=== PATIENT | female | born 1970 | race Caucasian/White ===

== ENCOUNTER 2019-10-25 10:58 | Emergency (ER) | payer OTHER, SELFPAY ==
[2019-10-25 10:59] VITALS: BP 141/73; PULSE 92; RESP 17; TEMP 36.7; O2SAT 98; BMI 34.7
--- NOTE | 2019-10-25 11:37 | RAD_ITS ---
STUDY: X-RAY CHEST REASON FOR EXAM: Female, 49 years old. TECHNIQUE: COMPARISON: None. FINDINGS: The lungs are clear and expanded. There is no demonstrated pleural abnormality. Normal size heart. Normal mediastinum and alexandra. Normal visualized pulmonary arteries. Normal visualized aortic arch and descending thoracic aorta. Normal visualized thoracic spine. Normal visualized ribs, clavicles, and shoulders. There is slight deviation of the left hemidiaphragm. There is no demonstrated abnormality of the visualized soft tissue structures of the upper abdomen. RAD/Chest PA and Lateral IMPRESSION: Normal x-ray examination of the chest. Electronically Signed: Román Johnson, at 11:52 EST Tel , Service support ,
[2019-10-25 11:52] VITALS: TEMP 36.7
--- NOTE | 2019-10-25 12:38 | ED.VISSUMM ---
- ER Visit Summary Date of Service: 10/25/19 Chief Complaint: Cough History of Present Illness: The patient is a 49 F past medical history of type I and some pen diabetes. Non-smoker. Patient states is a 4-day history of nonproductive cough. He has had some mild posttussive emesis. Fevers high as 101. Physical Examination: Well-appearing middle-aged female. Vital signs stable afebrile. Temperature 98. Pulse ox 98% room air no signs of hypoxia. No distress. HEENT exam unremarkable. Neck nontender no lymphadenopathy. No meningismus. Lungs dry cough but no rales rhonchi or wheezing. Equal symmetrical. Heart regular rhythm no murmur. Abdomen soft nontender. Extremities moves all 4. No edema. No calf tenderness. Back exam nontender. Neurologically she is awake and alert with no focal motor deficits. Test Results: Chest x-ray AP lateral view shows no acute abnormality. Normal cardiac silhouette mediastinum. No infiltrate. Read both by myself and the radiologist. Emergency Department Course and Treatment: Treated as a viral bronchitis. Treatment Plan: Cough syrup as needed. Fluids and rest. Follow-up if not improving. Return if worse. Disposition: dc Impression: Acute viral bronchitis This note was generated with [employer] dictation software. It may contain incorrect words, spelling, and punctuation that were not noted in review of the chart prior to signing ED Disposition - Plan for ED Patient: Referrals: Thomas Rhoades DO [Primary Care Provider] -
--- NOTE | 2019-10-25 12:40 | ED.DEP ---
ED Disposition - Plan for ED Patient: Disposition: Home or Assisted Living Instructions: BRONCHITIS, No Antibiotic (Adult) Prescriptions: Hydrocodone Bit/Homatropine [Hycodan Syrup] 5 ml GT Q4H PRN PRN #100 udc PRN Reason: Cough Prescription Printed Referrals: Thomas Rhoades DO [Primary Care Provider] - 1 Week if not improving Additional Instructions: Fluids and rest. Follow-up with your doctor if not improving.
[2019-10-25 12:53] VITALS: PULSE 86; RESP 18; TEMP 37; O2SAT 98
== END 2019-10-25 12:55 | disposition home or self-care (01) ==
PROVIDERS: Emergency Provider Emergency Medicine; Family Provider Family Medicine; PCP Family Medicine
DX: J20.8 Acute bronchitis due to other specified organisms (principal); E10.9 Type 1 diabetes mellitus without complications; Z79.4 Long term (current) use of insulin
CPT/HCPCS: 71046; 99282

== ENCOUNTER 2021-10-15 15:40 | Emergency (ER) | payer MEDICAID, SELFPAY ==
[2021-10-15 15:42] VITALS: BP 160/92; PULSE 100; RESP 16; TEMP 36.4; O2SAT 98; BMI 31.1
--- NOTE | 2021-10-15 15:45 | RAD_ITS ---
STUDY: X-RAY XR Forearm 2 Views REASON FOR EXAM: Female, 51 years old. PAIN TECHNIQUE: XR Forearm 2 Views COMPARISON: None. FINDINGS: There is no demonstrated soft tissue swelling. Normal visualized radius. Normal visualized ulna. RAD/Forearm 2 Views IMPRESSION: Normal x-ray examination of the radius and ulna. Electronically Signed: Vipin Morales MD at 16:49 EST , Service support ,
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
[2021-10-15 17:19] VITALS: BP 124/70; PULSE 62; RESP 15; O2SAT 98
== END 2021-10-15 17:26 | disposition home or self-care (01) ==
LOC: ED 17:25
PROVIDERS: Emergency Provider Emergency Medicine; PCP Family Medicine
DX: S50.12XA Contusion of left forearm, initial encounter (principal); V43.52XA Car driver injured in collision with other type car in traffic accident, initial encounter; Y93.9 Activity, unspecified; Y92.9 Unspecified place or not applicable; Y99.9 Unspecified external cause status; E10.8 Type 1 diabetes mellitus with unspecified complications; I10 Essential (primary) hypertension; E66.9 Obesity, unspecified; Z79.4 Long term (current) use of insulin; Z79.899 Other long term (current) drug therapy
CPT/HCPCS: 73090; 99284

== ENCOUNTER 2021-11-25 20:29 | Emergency (ER) | payer MEDICAID, SELFPAY ==
[2021-11-25 20:31] VITALS: BP 127/71; PULSE 92; RESP 16; TEMP 36.3; O2SAT 94; BMI 32.1
[2021-11-25 22:25] LABS: Bacteria 0 SEEN /hpf (None Seen); Mucous, Urine 0 SEEN /hpf (<or=2+); Red Blood Cells-Urine 0 SEEN /hpf (0-5); Squamous Epithelial Cells - UA 0 SEEN /hpf (5-10); White Blood Cells 0 SEEN /hpf (0-5)
[2021-11-25 22:27] LABS: Color, Urine Yellow (Yellow); Glucose, Dipstick 1000 mg/dl (Normal); Leukocyte Esterase-Dipstick Negative /ul (Negative); Nitrite-Dipstick Negative (Negative); Occult Blood-Urine Negative /ul (Negative); Protein-Dipstick Negative (Negative); Urine Bilirubin Dipstick Negative (Negative); Urine Clarity Clear (Clear); Urine Urobilinogen Normal (Normal)
--- NOTE | 2021-11-25 22:31 | CT_ITS ---
HISTORY: Bilateral flank pain 3 days TECHNIQUE: Multiple axial images were obtained of the abdomen and pelvis without oral or IV contrast. Coronal and sagittal reformats obtained. A radiation dose optimization technique was used for this scan. COMPARISON: October 25, 2019 chest radiograph FINDINGS: # of images incl. paperwork: [id number] LUNG BASES: Unremarkable. LIVER T BILIARY TRACT: Unremarkable gallbladder. No acute hepatic finding. ADRENAL GLANDS: Unremarkable. SPLEEN: Unremarkable. PANCREAS: Unremarkable. KIDNEYS/URETERS/BLADDER: No nephrolithiasis, hydronephrosis or perinephric inflammation. Unremarkable ureters and bladder. LYMPH NODES: No suspicious adenopathy. STOMACH, SMALL AND LARGE BOWEL: No acute gastric finding. No small bowel obstruction or gross wall thickening. Normal appendix. No acute colonic finding. ASCITES/FREE AIR: No free fluid or free air. AORTA: Atherosclerosis without ectasia. PELVIS: Unremarkable. MUSCULOSKELETAL: Left anterior abdominal wall focal skin thickening and subcutaneous edema, axial image 73 without evidence of organized fluid collection or abscess. No acute osseous finding. Tiny fat-containing umbilical hernia without inflammation. CT/Abdomen/Pelvis without Cont IMPRESSION: Left anterior abdominal wall focal skin thickening and subcutaneous inflammation. Correlate for clinical cellulitis. No evidence of subcutaneous abscess. No hydronephrosis or nephrolithiasis. No specific finding to explain flank pain. Individualized dose optimization techniques were used for this CT. at 0105 Reported and signed by: Andreas Lawrence MD Electronically Signed: Andreas Lawrence MD at 1:03 EST Tel , Service support ,
[2021-11-25 22:33] LABS: Ketone-Dipstick 150 mg/dl (Negative)
--- NOTE | 2021-11-25 22:53 | EDS_ITS ---
HPI History of Present Illness Chief Complaint: Back Informant: patient Narrative Narrative: Patient states she has had about 3 days of bilateral back pain. She denies any urinary symptoms whatsoever or change in urine color. No fevers or chills. She does have a flulike syndrome feeling. But she is not sick. She vomited once but it was after some coughing. But she is not coughing regularly and she is not short of breath. She denies any injury or trauma. At first she thought her back was just sore so she did use a massager on it. It is sore with motion but she is not sure if that is because of the massager. She has no abdominal pain. She is eating and drinking well. She has not had kidney stones. She does have diabetes and her sugars have been running in the mid 200s which is higher than her normal. Nothing specifically makes her symptoms better or worse consistently. PFSH PFSH Home Medications hydrochlorothiazide 25 mg PO DAILY PRN 12/25/13 [History Last Taken Unknown] insulin glargine [Lantus SoloStar Pen] 20 units SQ QHS 12/25/13 [History Last Taken Unknown] insulin glulisine U-100 [Apidra] unit SQ 12/25/13 [History Last Taken Unknown] diazepam 2 mg PO TID PRN PRN #10 tablet 08/17/16 [Rx Last Taken Unknown] meclizine 25 mg PO TID PRN PRN #20 tab 08/17/16 [Rx Last Taken Unknown] ondansetron 4 mg PO Q8H PRN PRN #10 tab 08/17/16 [Rx Last Taken Unknown] hydrocodone-homatropine 5 ml GT Q4H PRN PRN #100 udc 10/25/19 [Rx Last Taken Unknown] cyclobenzaprine 10 mg PO BID PRN #10 tab 11/26/21 [Rx Last Taken Unknown] hydrocodone-acetaminophen 1 tab PO Q6H PRN 3 Days #10 tab 11/26/21 [Rx Last Taken Unknown] Allergy/AdvReac Type Severity Reaction Status Date / Time lisinopril AdvReac Other Verified 11/25/21 20:31 morphine AdvReac Vomiting Verified 11/25/21 20:31 Penicillins [PCN] AdvReac Other Verified 11/25/21 20:31 Social History Smoking Status: Never smoker substance use type: does not use ROS ROS ED Constitutional Constitutional ED: Denies fever(s) or subjective Eyes Eyes: Denies blurry vision ENT ENT ED: Denies rhinorrhea or sore throat Cardiovascular Cardiovascular: Denies chest pain Respiratory/Chest Respiratory/Chest: Reports other Details: Coughed once or twice but generally not coughing. ; Denies dyspnea or sputum Gastrointestinal Gastrointestinal: Reports other Details: She vomited once a couple days ago but not since ; Denies abdominal pain, diarrhea, nausea or vomiting Genitourinary Genitourinary ED: Denies dysuria, hematuria or urinary frequency Musculoskeletal Musculoskeletal: Reports back pain; Denies arthralgias, myalgias or neck pain Integumentary Denies rash Neurologic Neurologic: Denies headache(s) Psychiatric Psychiatric: Denies depression Endocrine Endocrinology: Denies polydipsia or polyuria Hematologic/Lymphatic Hematologic/Lymphatic: Denies easy bleeding or easy bruising Allergic/Immunologic Allergic/Immunologic ED: Denies mouth swelling or urticaria EXAM Physical Exam Const Vital Signs: 11/25/21 20:31 Temperature 97.4 F L Temperature Source Temporal Pulse Rate 92 Respiratory Rate 16 Blood Pressure 127/71 H Blood Pressure Mean 89 Pulse Ox 94 Oxygen Delivery Method Room Air Positive well nourished and well developed General Appearance ED: well developed and NAD; Negative for pallor HEENT Negative for trauma Eyes PERRL and EOMs intact bilaterally General Eye ED: Negative for pale conjunctiva or scleral icterus Neck no JVD Resp normal respiratory effort and clear to auscultation bilaterally Cardio regular rate, regular rhythm and no murmurs GI normal to inspection, nondistended, normoactive bowel sounds, soft to palpation, non-tender and non-distended Back/Spine normal to inspection Back/Spine Narrative: Patient's paraspinal/CVA area is tender with just even light palpation. No rashes. No skin changes. No vesicles. No swelling. It slightly sore with motion 2. Extremity General Extremety ED: Negative for edema or tenderness General Extremity: Negative for edema Neuro Sensorium / Orientation: alert Psych mental status grossly normal Skin no rashes or lesions noted General Skin Exam: Negative for jaundice or pallor MDM MDM MDM Narrative Medical decision making narrative: CBC is normal. Electrolytes show elevated glucose at 461. Urine was negative other than ketones. She have some small acetone. However, there is no elevated anion gap or decreased bicarb. This is not consistent with DKA. I talked with the patient about her sugar. She did not take her insulin this evening. She states she will take her long-acting insulin, Basaglar, when she gets home. She states she would take 10 units of lispro now. She use her own insulin here for this. She is comfortable managing this. She has been diabetic for [address] scan shows no acute process. This may be musculoskeletal. We will get meds for pain as well as muscle relaxants. We discussed returning with fevers, numbness, tingling or other concerns. I will write for a few hydrocodone. Her online prescribing report showed 1 prescription for hydrocodone a year and a half ago. Lab Data Attestation: I reviewed the patient's lab results. Labs: Laboratory Results - last 24 hr 11/25/21 11/25/21 11/25/21 22:20 23:05 23:05 WBC 4.4 RBC 4.99 Hgb 14.5 Hct 42.1 MCV 84.4 MCH 29.1 MCHC 34.4 RDW Std Deviation 36.8 RDW Coeff of Jacquelin 12.1 Plt Count 212 MPV 10.5 Immature Gran % (Auto) 0.900 Neut % (Auto) 66.5 Lymph % (Auto) 18.8 L [place] % (Auto) 13.6 H Eos % (Auto) 0.0 Baso % (Auto) 0.2 Absolute Neuts (auto) 2.9 Absolute Lymphs (auto) 0.83 Nucleated RBC % 0 Sodium 131 L Potassium 4.3 Chloride 97 L Carbon Dioxide 22.0 Anion Gap 12 BUN 18 Creatinine 0.97 Estim Creat Clear Calc 54.27 Est GFR (MDRD) Af Amer 78 Est GFR (MDRD) Non-Af 64 BUN/Creatinine Ratio 18.6 Glucose 461 H* Calcium 8.6 Urine Color Yellow Urine Clarity Clear Urine pH 6.0 Ur Specific [place] 1.010 Urine Protein Negative Urine Glucose (UA) 1000 H Urine Ketones 150 A* Urine Occult Blood Negative Urine Nitrite Negative Urine Bilirubin Negative Urine Urobilinogen Normal Ur Leukocyte Esterase Negative Urine RBC 0 SEEN Urine WBC 0 SEEN Ur Squamous Epith Cells 0 SEEN Urine Bacteria 0 SEEN Urine Mucus 0 SEEN Acetone Level 11/25/21 23:05 WBC RBC Hgb Hct MCV MCH MCHC RDW Std Deviation RDW Coeff of Jacquelin Plt Count MPV Immature Gran % (Auto) Neut % (Auto) Lymph % (Auto) [place] % (Auto) Eos % (Auto) Baso % (Auto) Absolute Neuts (auto) Absolute Lymphs (auto) Nucleated RBC % Sodium Potassium Chloride Carbon Dioxide Anion Gap BUN Creatinine Estim Creat Clear Calc Est GFR (MDRD) Af Amer Est GFR (MDRD) Non-Af BUN/Creatinine Ratio Glucose Calcium Urine Color Urine Clarity Urine pH Ur Specific [place] Urine Protein Urine Glucose (UA) Urine Ketones Urine Occult Blood Urine Nitrite Urine Bilirubin Urine Urobilinogen Ur Leukocyte Esterase Urine RBC Urine WBC Ur Squamous Epith Cells Urine Bacteria Urine Mucus Acetone Level SMALL H Radiography Diagnostic Testing: Clinical Impression(s) from Imaging Studies Abdomen/Pelvis CT 11/25/21 22:31 IMPRESSION: Left anterior abdominal wall focal skin thickening and subcutaneous inflammation. Correlate for clinical cellulitis. No evidence of subcutaneous abscess. No hydronephrosis or nephrolithiasis. No specific finding to explain flank pain. Individualized dose optimization techniques were used for this CT. at 0105 Reported and signed by: Andreas Lawrence MD Electronically Signed: Andreas Lawrence MD at 1:03 EST Tel , Service support , Discharge Plan Triage Chief Complaint: Back ED Provider: Meño Allan Dx/Rx/DC Orders Clinical Impression: Back pain, Hyperglycemia Instructions: ED Back Pain (Acute or Chronic) Prescriptions: New cyclobenzaprine 10 mg tablet 10 mg PO BID PRN (Reason: muscle spasm) Qty: 10 RF: 0 hydrocodone-acetaminophen 5-325 mg tablet 1 tab PO Q6H PRN (Reason: pain) 3 Days Qty: 10 RF: 0 No Action hydrochlorothiazide 25 MG tablet 25 mg PO DAILY PRN (Reason: Swelling) RF: 0 insulin glulisine U-100 [Apidra U-100 Insulin] 100 UNIT/ML solution SQ RF: 0 insulin glargine [Lantus Solostar U-100 Insulin] 100 UNITS/ML insulin pen 20 units SQ QHS RF: 0 diazepam 2 MG tablet 2 mg PO TID PRN PRN (Reason: Vertigo) Qty: 10 RF: 0 meclizine 25 MG tablet 25 mg PO TID PRN PRN (Reason: Vertigo) Qty: 20 RF: 0 ondansetron 4 MG tablet 4 mg PO Q8H PRN PRN (Reason: Nausea) Qty: 10 RF: 0 hydrocodone-homatropine 5 ML syrup 5 ml GT Q4H PRN PRN (Reason: Cough) Qty: 100 RF: 0 Primary Care Provider: Thomas Rhoades Referrals: Thomas Rhoades DO [Primary Care Provider] - 3-5 Days if not improving Disposition Disposition: Home, Self Care
--- NOTE | 2021-11-25 23:09 | ED.RN ---
PT REFUSED IV. PT ARGUMENTATIVE ABOUT BLOOD DRAW. PT REFUSED COVID SWAB. PT ARGUMENTATIVE ABOUT GETTING INTO A GOWN.
[2021-11-25 23:22] LABS: Absolute Lymphocyte Count 0.83 X10^3/uL (0.83-4.51); Absolute Neutrophil Count 2.9 X10^3/uL (2.0-7.7); Basophil# 0.01 X10^3/uL; Basophil% 0.2 % (0-1); Hematocrit 42.1 % (37-47); Hemoglobin 14.5 g/dL (12.0-15.0); Lymphocyte # 0.83 X10^3/ul (0.83-4.51); Lymphocyte % 18.8 % (19-41); Mean Corp Hgb Conc 34.4 g/dL (32-36); Mean Corpuscular Hgb 29.1 pg (27.0-32.0); Mean Corpuscular Volume 84.4 fL (81-99); Mean Platelet Vol. 10.5 fl (6.2-12.0); Monocyte% 13.6 % (0-10); NRBC Flagged by Analyzer 0 % (0-5); Neutrophil # 2.93 X10^3/uL (2.7-7.7); Neutrophil % 66.5 % (47-70); Platelet Count 212 K/mm3 (150-450); RBC Distribution Width CV 12.1 % (11.6-14.6); RBC Distribution Width SD 36.8 fl (35.1-43.9); Red Blood Count 4.99 M/mm3 (4.2-5.4); White Blood Count 4.4 K/mm3 (4.4-11.0)
[2021-11-25 23:29] LABS: Anion Gap 12 (5-15); BUN 18 mg/dL (7-18); BUN/Creat Ratio 18.6 RATIO (10-20); Calcium,Total 8.6 mg/dL (8.5-10.1); Chloride 97 mmol/L (98-107); Creatinine, Serum 0.97 mg/dL (0.55-1.02); EST Glomerular Filtration Rate 64 mL/min (>60); Est Glom Filt Rate - Afr Amer 78 mL/min (>60); Estimated Creatinine Clearance 54.27 ml/min; Glucose 461 mg/dL (74-106); Potassium 4.3 mmol/L (3.5-5.1); Sodium Level 131 mmol/L (136-145)
[2021-11-26] MEDS: oxyCODONE 5 MG Tablet PO (00:27)
[2021-11-26] MEDS: Ondansetron ODT 4 MG Tablet PO (00:27)
== END 2021-11-26 01:36 | disposition home or self-care (01) ==
PROVIDERS: Emergency Provider Emergency Medicine; PCP Family Medicine
DX: M54.9 Dorsalgia, unspecified (principal); E11.65 Type 2 diabetes mellitus with hyperglycemia; Z79.4 Long term (current) use of insulin; Z79.899 Other long term (current) drug therapy
CPT/HCPCS: 74176; 80048; 81001; 82009; 85025; 99282

== ENCOUNTER 2021-11-29 19:09 | Inpatient (IN) | payer MEDICAID, SELFPAY ==
[2021-11-29 19:10] VITALS: BP 124/60; PULSE 108; RESP 24; TEMP 36.6; O2SAT 100; BMI 31.1
[2021-11-29 19:12] VITALS: BMI 30.9
--- NOTE | 2021-11-29 20:57 | EKG12_ITS ---
Test Reason : SOB Blood Pressure : / mmHG Vent. Rate : 098 BPM Atrial Rate : 098 BPM P-R Int : 178 ms QRS Dur : 098 ms QT Int : 382 ms P-R-T Axes : 067 050 036 degrees QTc Int : 487 ms Normal sinus rhythm Nonspecific ST abnormality Prolonged QT Abnormal ECG Confirmed by VIRY SAWANT, MEHUL ([id number]), proposal editor OSIRIS VELEZ ([id number]) on 11/30/2021 11:12:57 AM Referred By: ANURAG Confirmed By:MEHUL BAIRES MD
--- NOTE | 2021-11-29 21:15 | RAD_ITS ---
STUDY: X-RAY CHEST REASON FOR EXAM: Female, 51 years old. sob TECHNIQUE: Single AP portable view of the chest. COMPARISON: Chest x-ray dated October 25, 2019 FINDINGS: Mild patchy consolidation is present in bilateral upper lobes, with additional small infiltrates seen bilateral lower lobe perihilar regions. There is hyperinflation of the lungs consistent with chronic obstructive lung disease (COPD). There is no demonstrated pleural abnormality. Normal size heart. Normal mediastinum and alexandra. Normal visualized pulmonary arteries. Normal visualized aortic arch and descending thoracic aorta. Normal visualized thoracic spine. Normal visualized ribs, clavicles, and shoulders. There is no demonstrated abnormality of the visualized soft tissue structures of the upper abdomen. IMPRESSION: Mild multifocal pneumonia 1. Mild patchy consolidation is present in bilateral upper lobes, with additional small infiltrates seen bilateral lower lobe perihilar regions. Electronically Signed: Shaheen Flowers MD at 23:07 EST , Service support , RAD/Chest 1 View (Portable)
[2021-11-29 21:38] LABS: Hematocrit 46.7 % (37-47); Hemoglobin 15.2 g/dL (12.0-15.0); Mean Corp Hgb Conc 32.5 g/dL (32-36); Mean Corpuscular Hgb 28.8 pg (27.0-32.0); Mean Corpuscular Volume 88.4 fL (81-99); Mean Platelet Vol. 10.3 fl (6.2-12.0); POSITIVE DIFFERENTIAL YES; POSITIVE MORPHOLOGY YES; Platelet Count 309 K/mm3 (150-450); RBC Distribution Width CV 12.6 % (11.6-14.6); RBC Distribution Width SD 40.7 fl (35.1-43.9); Red Blood Count 5.28 M/mm3 (4.2-5.4)
[2021-11-29 22:02] VITALS: BP 133/84; PULSE 99; RESP 26; O2SAT 100
[2021-11-29 22:04] VITALS: O2SAT 100
[2021-11-29 22:07] LABS: Differential Indicated MANUAL DIFF
[2021-11-29 22:09] LABS: Lymphocyte 6 % (19-41); Monocyte 3 % (0-10); Neutrophil-Band 1 % (0-5); Neutrophil-Segmented 90 % (47-70); Red Cell Morphology NORM C+C NORMAL (NORM C&C); Total Cells Counted 100 (MANUAL DIFF)
[2021-11-29 22:10] LABS: Platelet Estimate ADEQUATE (ADEQ)
[2021-11-29 22:11] LABS: Absolute Lymphocyte Count 0.72 X10^3/uL (0.83-4.51)
[2021-11-29 22:32] LABS: Anion Gap 30 (5-15); BUN 33 mg/dL (7-18); BUN/Creat Ratio 18.3 RATIO (10-20); Calcium,Total 8.9 mg/dL (8.5-10.1); Chloride 91 mmol/L (98-107); EST Glomerular Filtration Rate 32 mL/min (>60); Est Glom Filt Rate - Afr Amer 38 mL/min (>60); Estimated Creatinine Clearance 29.24 ml/min; Glucose 868 mg/dL (74-106); Potassium 6.5 mmol/L (3.5-5.1); Sodium Level 123 mmol/L (136-145)
[2021-11-29 22:40] LABS: Bedside Glucose > 500 mg/dL (70-110)
[2021-11-29] MEDS: 0.9% Normal Saline 1,000 ML 999 ML IV ×2 (22:56→23:38)
--- NOTE | 2021-11-29 22:58 | EX.ED.DYSGE1 ---
HPI History of Present Illness Chief Complaint: Shortness of Breath Informant: patient and family Limited: other (AMS) Narrative Narrative: Patient is a 51 year old female with history of DM1 and recent diagnosis of COVID 19 infection presenting with mental status and fast breathing. Patient started acting confused this morning. Family was unable to find her glucometer. She is not been receiving her insulin because she is not been eating or drinking anything. She was throwing up a couple days ago. Patient was seen in the ER 4 days ago for back pain. That time she is put on muscle relaxant given a short course of [place]. She was not placed on any steroids. Family were states she had a Covid test here but we do not have the records of this test. Patient denies any complaints but is quite confused. [facility] Medical History (Updated 11/30/21 @ 00:[address] Jeniffer Gutierrez, DO) Type 1 diabetes Home Medications hydrochlorothiazide 25 mg PO DAILY PRN PRN 12/25/13 [History Last Taken Unknown] insulin glargine [Lantus SoloStar Pen] 20 units SQ QHS 12/25/13 [History Last Taken Unknown] insulin glulisine U-100 [Apidra] unit SQ 12/25/13 [History Last Taken Unknown] meclizine 25 mg PO TID PRN PRN #20 tab 08/17/16 [Rx Last Taken Unknown] ondansetron 4 mg PO Q8H PRN PRN #10 tab 08/17/16 [Rx Last Taken Unknown] cyclobenzaprine 10 mg PO BID PRN #10 tab 11/26/21 [Rx Last Taken Unknown] hydrocodone-acetaminophen 1 tab PO Q6H PRN 3 Days #10 tab 11/26/21 [Rx Last Taken Unknown] Allergy/AdvReac Type Severity Reaction Status Date / Time lisinopril AdvReac Other Verified 11/29/21 19:12 morphine AdvReac Vomiting Verified 11/29/21 19:12 Penicillins [PCN] AdvReac Other Verified 11/29/21 19:12 Family History (Updated 11/29/21 @ 23:[address] Nick Fairbanks MD) Other Multiple sclerosis Surgical History History of carpal tunnel surgery Hx of hand surgery Social History Smoking Status: Never smoker substance use type: does not use ROS ROS ED Review of Systems ROS Unobtainable: due to encephalopathy EXAM Physical Exam Const Vital Signs: 11/29/21 19:10 11/29/21 22:02 11/29/21 22:04 Temperature 98 F Temperature Source Temporal Pulse Rate 108 H 99 Respiratory Rate 24 H 26 H Respiratory Pattern Blood Pressure 124/60 H 133/84 H Blood Pressure Mean 81 100 Pulse Ox 100 100 100 Oxygen Delivery Method Room Air Room Air Room Air 11/29/21 22:07 Temperature Temperature Source Pulse Rate Respiratory Rate Respiratory Pattern Tachypnea Blood Pressure Blood Pressure Mean Pulse Ox Oxygen Delivery Method Positive well nourished and well developed General Appearance ED: well developed and other rolling around in bed, moderate distress HEENT Reports dry mucous membranes Negative for trauma Mouth ED: Yes dry mucous membranes Mouth: dry mucous membranes Eyes PERRL and EOMs intact bilaterally Neck supple and no JVD Chest Wall inspection of chest normal Resp clear to auscultation bilaterally Resp Narrative: [place] respirations Cardio regular rhythm and no murmurs Rate: tachycardic GI normal to inspection, nondistended, normoactive bowel sounds Extremity normal to inspection General Extremety ED: Negative for tenderness Neuro Neuro Narrative: No focal deficits noted Sensorium / Orientation: alert and orientation impaired Psych Mood & Affect: anxious Skin no rashes or lesions noted MDM MDM MDM Narrative Medical decision making narrative: Patient is evaluated for altered mental status. On evaluation she is encephalopathic. No focal neurologic deficits. She is hyperglycemic and scoop driver small breathing. I believe she is in DKA. Laboratory tests are consistent with that. She has an elevation of her creatinine as well at 1.8. She has an associated RUTH. Patient is given 2 L of normal saline in the ER. She started on insulin drip. She does have a hyperkalemia however she does not have EKG changes consistent with hyperkalemia. I suspect it is associated with her DKA and will normalize with fluids and resolution of her anion gap metabolic acidosis. Patient is admitted to the ICU for further treatment of her DKA. Patient and family member agreeable this plan of care. Suspect medication noncompliance as well as her recent COVID-19 illness or other causes of her DKA. Lab Data Attestation: I reviewed the patient's lab results. Labs: Laboratory Results - last 24 hr 11/29/21 11/29/21 11/29/21 21:25 21:25 22:10 WBC 12.0 H RBC 5.28 Hgb 15.2 H Hct 46.7 MCV 88.4 MCH 28.8 MCHC 32.5 D RDW Std Deviation 40.7 RDW Coeff of Jacquelin 12.6 Plt Count 309 MPV 10.3 Neut % (Auto) Not Reportable Absolute Neuts (auto) 11.0 H Absolute Lymphs (auto) 0.72 L Total Counted 100 Neutrophils % (Manual) 90 H Band Neutrophils % 1 Lymphocytes % (Manual) 6 L Monocytes % (Manual) 3 Platelet Estimate ADEQUATE RBC Morphology NORM C+C Sodium 123 L Potassium 6.5 H* Chloride 91 L Carbon Dioxide 2.0 L* Anion Gap 30 H BUN 33 H Creatinine 1.80 H Estim Creat Clear Calc 29.24 Est GFR (MDRD) Af Amer 38 L Est GFR (MDRD) Non-Af 32 L BUN/Creatinine Ratio 18.3 Glucose 868 H* Hemoglobin A1c Calcium 8.9 Phosphorus Acetone Level POC Glucose > 500 H* 11/29/21 11/29/21 11/29/21 22:50 22:50 22:50 WBC RBC Hgb Hct MCV MCH MCHC RDW Std Deviation RDW Coeff of Jacquelin Plt Count MPV Neut % (Auto) Absolute Neuts (auto) Absolute Lymphs (auto) Total Counted Neutrophils % (Manual) Band Neutrophils % Lymphocytes % (Manual) Monocytes % (Manual) Platelet Estimate RBC Morphology Sodium Potassium Chloride Carbon Dioxide Anion Gap BUN Creatinine Estim Creat Clear Calc Est GFR (MDRD) Af Amer Est GFR (MDRD) Non-Af BUN/Creatinine Ratio Glucose Hemoglobin A1c 10.9 H Calcium Phosphorus 5.0 H Acetone Level LARGE H POC Glucose Radiography Chest X-Ray - ED: 1 View, Read by ED Physician, Read by Radiologist, Right Infiltrate and Left Infiltrate Diagnostic Testing: Clinical Impression(s) from Imaging Studies Chest X-Ray 11/29/21 21:15 Rhythm Strip Rhythm Strip: Sinus Rhythm Rate: 98 Ectopy: None EKG Initial EKG: Attestation: I personally reviewed and interpreted this EKG as follows: Interpretation: Sinus Rhythm Comments: Normal sinus rhythm at a rate of 98 Normal axis QRS is [address] segments Poor baseline due to motion artifact Critical Care Time Critical Care Time: Yes Critical care time (excluding procedures): 30-74 minutes (39), Including time spent: (Patient presents with DKA with severe metabolic acidosis. Requires close monitoring and arranging admission to the ICU. Patient is on insulin drip.), Discussing w/Patient &/or Family/Local Area Network Systems Adminstrator and Arranging Admission or Transfer Discharge Plan Triage Chief Complaint: Shortness of Breath ED Provider: Jeniffer Gutierrez Dx/Rx/DC Orders Clinical Impression: DKA, type 1, COVID-19 virus infection, Acute hyperkalemia, RUTH (acute kidney injury) Primary Care Provider: Thomas Rhoades Disposition Disposition: Acute Care Hospital [facility]
--- NOTE | 2021-11-29 23:24 | HP.PCM.HOS_ITS ---
HPI - General General Date of Admission: 11/29/21 HPI Narrative JANICE ROLLINS, is a 51 F with a significant history of diabetes mellitus who presents to the emergency department because of progressively worsening confusion. Her started on the same day of presentation. Three-day before presentation patient presented to the hospital with back pain and she was discharged home on muscle relaxants and [place]. Her thought that it was this new medication causing her symptoms. However after some time because her symptoms were not going away patient was brought to the hospital. Of note patient has had a Covid-like symptoms and was tested for Covid a few days ago. Her Covid test came back positive. With a Covid test patient was anorexic and was not eating so she was not taking her insulin. Further, patient has had nausea, vomiting. Patient has not had any diarrhea. She has had myalgia. Also, she has had shortness of breath and wheezes. [facility] Medical History Type 1 diabetes Home Medications hydrochlorothiazide 25 mg PO DAILY PRN PRN 12/25/13 [History Last Taken Unknown] insulin glargine [Lantus SoloStar Pen] 20 units SQ QHS 12/25/13 [History Last Taken Unknown] insulin glulisine U-100 [Apidra] unit SQ 12/25/13 [History Last Taken Unknown] meclizine 25 mg PO TID PRN PRN #20 tab 08/17/16 [Rx Last Taken Unknown] ondansetron 4 mg PO Q8H PRN PRN #10 tab 08/17/16 [Rx Last Taken Unknown] cyclobenzaprine 10 mg PO BID PRN #10 tab 11/26/21 [Rx Last Taken Unknown] hydrocodone-acetaminophen 1 tab PO Q6H PRN 3 Days #10 tab 11/26/21 [Rx Last Taken Unknown] Allergy/AdvReac Type Severity Reaction Status Date / Time lisinopril AdvReac Other Verified 11/29/21 19:12 morphine AdvReac Vomiting Verified 11/29/21 19:12 Penicillins [PCN] AdvReac Other Verified 11/29/21 19:12 Family History Other Multiple sclerosis Surgical History History of carpal tunnel surgery Hx of hand surgery Social History Smoking Status: Never smoker substance use type: does not use ROS ROS Narrative Pertinent positives and pertinent negatives as noted in HPI. All other systems were reviewed and are negative. Vital Signs Vital Signs Vital Signs: 11/29/21 19:10 11/29/21 22:02 11/29/21 22:04 Temperature 98 F Temperature Source Temporal Pulse Rate 108 H 99 Respiratory Rate 24 H 26 H Respiratory Pattern Blood Pressure 124/60 H 133/84 H Blood Pressure Mean 81 100 Pulse Ox 100 100 100 Oxygen Delivery Method Room Air Room Air Room Air 11/29/21 22:07 Temperature Temperature Source Pulse Rate Respiratory Rate Respiratory Pattern Tachypnea Blood Pressure Blood Pressure Mean Pulse Ox Oxygen Delivery Method Weight Weight: 77.111 kg Body Mass Index (BMI) 31.1 Physical Exam Narrative Physical exam: General: Well-nourished, well-developed. Head: Normocephalic, atraumatic, no tenderness Eyes: PERRLA, EOMI ENT, no trauma, dry mucous membranes, no rhinorrhea Neck: Nontender, full range of motion, no spinal tenderness, deformities, step- off CVS: Regular rate and rhythm. S1-S2 present. No murmur, gallop or rub. Respiratory : Hyperventilating. Clear to auscultation bilaterally, chest wall nontender. Abdomen: Soft, nontender, nondistended, normal bowel sounds, no masses : Deferred Back: Nontender, no CVA tenderness, no midline spinal tenderness, deformities, step-offs Extremities: Nontender full range of motion, no trauma Skin: Normal color, no trauma, abrasions Neuro: Hypo-alert and confused. Psychiatry: Normal mood. Normal affect. Not depressed. Not anxious. Results Lab / Micro Data Result Diagrams: 11/29/21 21:25 11/30/21 01:40 Labs: Laboratory Results - last 24 hr 11/29/21 21:25: WBC 12.0 H, RBC 5.28, Hgb 15.2 H, Hct 46.7, MCV 88.4, MCH 28.8, MCHC 32.5 D, RDW Std Deviation 40.7, RDW Coeff of Jacquelin 12.6, Plt Count 309, MPV 10.3, Neut % (Auto) Not Reportable, Absolute Neuts (auto) 11.0 H, Absolute Lymphs (auto) 0.72 L, Total Counted 100, Neutrophils % (Manual) 90 H, Band Neutrophils % 1, Lymphocytes % (Manual) 6 L, Monocytes % (Manual) 3, Platelet Estimate ADEQUATE, RBC Morphology NORM C+C 11/29/21 21:25: Sodium 123 L, Potassium 6.5 H*, Chloride 91 L, Carbon Dioxide 2.0 L*, Anion Gap 30 H, BUN 33 H, Creatinine 1.80 H, Estim Creat Clear Calc 29.24, Est GFR (MDRD) Af Amer 38 L, Est GFR (MDRD) Non-Af 32 L, BUN/Creatinine Ratio 18.3, Glucose 868 H*, Calcium 8.9 11/29/21 22:10: POC Glucose > 500 H* Rhythm Strip Rhythm Strip: Sinus Rhythm Rate: 98 Ectopy: None Radiology Impression Chest X-Ray 11/29/21 21:15 Assessment & Plan Assessment/Plan (1) Type 1 diabetes: QUALIFIERS: Diabetes mellitus complication status: without complication Qualified Code(s): E10.9 - Type 1 diabetes mellitus without complications (2) DKA, type 1: QUALIFIERS: Diabetes mellitus complication detail: without coma Qualified Code(s): E10.10 - Type 1 diabetes mellitus with ketoacidosis without coma (3) COVID-19 virus infection: PLAN: DKA with encephalopathy Her DKA could be secondary to insufficient insulin to meet his metabolic demands Serum glucose: 868 acetone level: Large. Anion gap of 30 Sodium 123, . Corrected sodium: 135 Insulin drip started from emergency department; continue Completed IV bolus of normal saline and normal saline infusion. Initial potassium 6.5. Repeat BMP showed potassium of 4.6. Normal saline with 20 of potassium ordered. Then start patient on half-normal saline with 20 of potassium. Initial ABG showed pH of less than 7 and bicarbonate was at 2. Bicarbonate IV push ordered. BMP every 4 hours to calculate anion gap. N.p.o. for now A1c ordered emergency department was 10.9. Phosphorus was 5.0. Patient was very agitated while admitted to the intensive care unit. Precedex drip ordered. Admitted to ICU Leukocytosis Review of labs showed white count of 12.0. Likely reactive. Trend BMP. RUTH/dehydration Creatinine of 1.80. BUN of 33. BUN over creatinine of 18.3. Likely intrinsic renal at this time. IV hydration as above. Avoid nephrotoxins. Trend BMP. COVID-19 infection Not hypoxic. We will avoid all p.o. meds secondary to encephalopathy. DVT prophylaxis: Subcutaneous Lovenox ordered. Charges/Coding Visit Charges Inpatient E&M: 44275 Init Hosp L3
[2021-11-29 23:31] LABS: Hemoglobin A1c 10.9 % (3.8-5.6)
[2021-11-30] VITALS (30 sets, daily range): BP systolic 70–150; BP diastolic 56–92; PULSE 70–106; RESP 15–27; TEMP 36.3–36.7; O2SAT 94–100
[2021-11-30 00:37] LABS: Mucous, Urine 0 SEEN /hpf (<or=2+); Red Blood Cells-Urine 0 SEEN /hpf (0-5); Squamous Epithelial Cells - UA 0 SEEN /hpf (5-10); White Blood Cells 0 SEEN /hpf (0-5)
[2021-11-30 00:38] LABS: Color, Urine Yellow (Yellow); Glucose, Dipstick 1000 mg/dl (Normal); Leukocyte Esterase-Dipstick Negative /ul (Negative); Nitrite-Dipstick Negative (Negative); Occult Blood-Urine 50 /ul (Negative); Protein-Dipstick 30 mg/dl (Negative); Specific Gravity, Urine 1.015 (1.002-1.030); Urine Bilirubin Dipstick Negative (Negative); Urine Clarity Clear (Clear); Urine Urobilinogen Normal (Normal)
[2021-11-30 00:50] LABS: Ketone-Dipstick 150 mg/dl (Negative)
[2021-11-30 00:52] LABS: Amorphous Sediment 1+; Bacteria 1+ /hpf (None Seen)
[2021-11-30 01:16] LABS: Blood Gas Specimen Type VEN; VBG BASE EXCESS < -30 mmol/L (-1.0-3.5); VBG PO2 55 mmHg (25-40); VBG SO2 56 % (50-70); VBG TCO2 < 5 mmol/L (23-33); VBG pH 6.78 (7.32-7.42)
[2021-11-30 02:38] LABS: Anion Gap 29 (5-15); BUN 34 mg/dL (7-18); BUN/Creat Ratio 21.8 RATIO (10-20); Calcium,Total 8.1 mg/dL (8.5-10.1); Chloride 101 mmol/L (98-107); Creatinine, Serum 1.56 mg/dL (0.55-1.02); EST Glomerular Filtration Rate 37 mL/min (>60); Est Glom Filt Rate - Afr Amer 45 mL/min (>60); Estimated Creatinine Clearance 33.74 ml/min; Glucose 738 mg/dL (74-106); Potassium 4.6 mmol/L (3.5-5.1); Sodium Level 131 mmol/L (136-145)
[2021-11-30] MEDS: 0.9% Normal Saline 1,000 ML 250 ML IV (02:45)
[2021-11-30] MEDS: Sodium Bicarbonate 8.4% 50 ML Syringe 50 MEQ IV ×3 (03:02→05:20)
[2021-11-30] MEDS: KCL 20MEQ in 0.9% NS 20 MEQ/1,000 ML IV.SOLN. 250 MEQ IV (03:50)
[2021-11-30 04:16] LABS: Hematocrit 45.1 % (37-47); Hemoglobin 14.9 g/dL (12.0-15.0); Mean Corpuscular Hgb 28.7 pg (27.0-32.0); Mean Corpuscular Volume 86.7 fL (81-99); Mean Platelet Vol. 10.4 fl (6.2-12.0); POSITIVE DIFFERENTIAL YES; POSITIVE MORPHOLOGY YES; Platelet Count 224 K/mm3 (150-450); RBC Distribution Width CV 12.4 % (11.6-14.6); RBC Distribution Width SD 39.4 fl (35.1-43.9)
[2021-11-30 04:19] LABS: Differential Indicated MANUAL DIFF
[2021-11-30 04:48] LABS: Anion Gap 27 (5-15); BUN 34 mg/dL (7-18); BUN/Creat Ratio 22.5 RATIO (10-20); Calcium,Total 8.2 mg/dL (8.5-10.1); Chloride 102 mmol/L (98-107); Creatinine, Serum 1.51 mg/dL (0.55-1.02); EST Glomerular Filtration Rate 39 mL/min (>60); Est Glom Filt Rate - Afr Amer 47 mL/min (>60); Estimated Creatinine Clearance 34.86 ml/min; Glucose 577 mg/dL (74-106); Potassium 3.9 mmol/L (3.5-5.1); Sodium Level 134 mmol/L (136-145)
[2021-11-30 04:58] LABS: Total Cells Counted 100 (MANUAL DIFF)
[2021-11-30 05:01] LABS: Lymphocyte 6 % (19-41); Metamyelocyte 1 % (0-1); Monocyte 5 % (0-10); Myelocyte 1 % (0-0); Neutrophil-Band 4 % (0-5); Neutrophil-Segmented 82 % (47-70); Promyelocyte 1 % (0-0)
[2021-11-30 05:02] LABS: Platelet Estimate ADEQUATE (ADEQ); Red Cell Morphology NORM C+C NORMAL (NORM C&C)
[2021-11-30 05:03] LABS: Absolute Lymphocyte Count 0.78 X10^3/uL (0.83-4.51); Absolute Neutrophil Count 11.2 X10^3/uL (2.0-7.7); Lymphocyte # 0.78 X10^3/ul (0.83-4.51); Neutrophil # 11.18 X10^3/uL (2.7-7.7)
[2021-11-30] MEDS: 0.9% Normal Saline 1,000 ML 150 ML IV (08:10)
[2021-11-30 08:41] LABS: VBG Bicarbonate 2 mmol/L (22-26)
--- NOTE | 2021-11-30 09:16 | PN.HOSP_ITS ---
Subjective Subjective The patient was admitted with confusion started on the day of admission. She was a started on muscle relaxant and [place] when she had back pain 3 days prior to admission. Currently on half-normal saline with 20 mEq of KCl.. On insulin drip Objective Data Objective Data Vital Signs: Vital Signs Temp Pulse Resp BP Pulse Ox 97.4 F L 90 20 H 115/74 100 11/30/21 00:51 11/30/21 07:00 11/30/21 07:00 11/30/21 07:00 11/30/21 07:00 Oxygen Delivery Method Room Air Weight: 169 lb 5.04 oz Body Mass Index (BMI) 30.9 Intake & Output: Intake and Output for Last 24 Hours 11/28/21 11/29/21 11/30/21 23:59 23:59 23:59 Intake Total 682.65 / 682.65 1388.48 / 1388.48 Output Total 400 / 400 Balance 682.65 / 682.65 988.48 / 988.48 Lab / Micro Data Result Diagrams: 11/30/21 03:40 11/30/21 09:13 Labs: Laboratory Results - last 24 hr 11/29/21 21:25: WBC 12.0 H, RBC 5.28, Hgb 15.2 H, Hct 46.7, MCV 88.4, MCH 28.8, MCHC 32.5 D, RDW Std Deviation 40.7, RDW Coeff of Jacquelin 12.6, Plt Count 309, MPV 10.3, Neut % (Auto) Not Reportable, Absolute Neuts (auto) 11.0 H, Absolute Lymphs (auto) 0.72 L, Total Counted 100, Neutrophils % (Manual) 90 H, Band Neutrophils % 1, Lymphocytes % (Manual) 6 L, Monocytes % (Manual) 3, Platelet Estimate ADEQUATE, RBC Morphology NORM C+C 11/29/21 21:25: Sodium 123 L, Potassium 6.5 H*, Chloride 91 L, Carbon Dioxide 2.0 L*, Anion Gap 30 H, BUN 33 H, Creatinine 1.80 H, Estim Creat Clear Calc 29.24, Est GFR (MDRD) Af Amer 38 L, Est GFR (MDRD) Non-Af 32 L, BUN/Creatinine Ratio 18.3, Glucose 868 H*, Calcium 8.9 11/29/21 22:10: POC Glucose > 500 H* 11/29/21 22:50: Phosphorus 5.0 H 11/29/21 22:50: Acetone Level LARGE H 11/29/21 22:50: Hemoglobin A1c 10.9 H 11/30/21 00:30: Urine Color Yellow, Urine Clarity Clear, Urine pH 5.0, Ur Specific [place] 1.015, Urine Protein 30 H, Urine Glucose (UA) 1000 H, Urine Ketones 150 A*, Urine Occult Blood 50 H, Urine Nitrite Negative, Urine Bilirubin Negative, Urine Urobilinogen Normal, Ur Leukocyte Esterase Negative, Urine RBC 0 SEEN, Urine WBC 0 SEEN, Ur Squamous Epith Cells 0 SEEN, Amorphous Sediment 1+, Urine Bacteria 1+, Urine Mucus 0 SEEN 11/30/21 01:40: Sodium 131 L, Potassium 4.6, Chloride 101, Carbon Dioxide 1.0 L* , Anion Gap 29 H, BUN 34 H, Creatinine 1.56 H, Estim Creat Clear Calc 33.74, Est GFR (MDRD) Af Amer 45 L, Est GFR (MDRD) Non-Af 37 L, BUN/Creatinine Ratio 21.8 H , Glucose 738 H*, Calcium 8.1 L 11/30/21 03:40: Sodium 134 L, Potassium 3.9, Chloride 102, Carbon Dioxide 5.0 L* , Anion Gap 27 H, BUN 34 H, Creatinine 1.51 H, Estim Creat Clear Calc 34.86, Est GFR (MDRD) Af Amer 47 L, Est GFR (MDRD) Non-Af 39 L, BUN/Creatinine Ratio 22.5 H , Glucose 577 H*, Calcium 8.2 L 11/30/21 03:40: WBC 13.0 H, RBC 5.20, Hgb 14.9, Hct 45.1, MCV 86.7, MCH 28.7, MCHC 33.0, RDW Std Deviation 39.4, RDW Coeff of Jacquelin 12.4, Plt Count 224, MPV 10.4, Neut % (Auto) Not Reportable, Absolute Neuts (auto) 11.2 H, Absolute Lymphs (auto) 0.78 L, Total Counted 100, Neutrophils % (Manual) 82 H, Band Neutrophils % 4, Lymphocytes % (Manual) 6 L, Monocytes % (Manual) 5, Metamyelocytes % 1, Myelocytes % 1 H, Promyelocytes % 1 H, Diff Path Review May foll, Platelet Estimate ADEQUATE, RBC Morphology NORM C+C Micro: Microbiology 11/29/21 22:50 Interface Orders SARS-CoV-2 Antigen (Rapid) - Final SARS-CoV-2 (COVID 19) ABG Data ABG results: ABG 11/29/21 23:01 Specimen Type JANNA VBG pH 6.78 L* VBG pO2 55 H VBG Total CO2 < 5 L VBG O2 Sat (Calc) 56 VBG Base Excess < -30 L POC Mix VBG pCO2 Pt Tmp 14.0 L* Crit Call To/Read Back Yes Blood Gas Notified Whom Dr Gutierrez Blood Gas Notified Time 23:04:04 Radiography Diagnostic Testing: Radiology Impression Chest X-Ray 11/29/21 21:15 Rhythm Strip Rhythm Strip: Sinus Rhythm Rate: 98 Ectopy: None Physical Exam Narrative General: Confused, knows her date of , year and month, day and night but disoriented to place and person HEENT: Atraumatic, PERRLA, EOMI, Normocephalic Oral: Oral mucosa moist. No Gingival or Mucosal Lesions/ Ulcerations Neck: Supple, No JVD, Negative Carotid Bruits Lungs: Air entry diminished in bilateral lung bases. No crepitation/rhonchi Cardiovascular: Regular rate, Regular Rhythm, Normal S1, Normal S2, No murmurs Abdomen: Bowel Sounds Present, Soft, Non Tender, Non-Distended : Urine output clear urine no renal angle tenderness. No suprapubic tenderness. Extremities: No edema, Capillary Refill Less than 3 Seconds Skin: No rashes, No breakdown Musculoskeletal: No Tenderness to Palpation of Joints or Extremities Neurological: Cranial nerves II-XII grossly intact, DTR 2+/4 and Symmetrical, Neuro grossly intact Psych/Mental Status: Flat affect, slow to respond Assessment & Plan Assessment/Plan (1) Type 1 diabetes: QUALIFIERS: Diabetes mellitus complication status: without complication Qualified Code(s): E10.9 - Type 1 diabetes mellitus without complications (2) DKA, type 1: QUALIFIERS: Diabetes mellitus complication detail: without coma Qualified Code(s): E10.10 - Type 1 diabetes mellitus with ketoacidosis without coma (3) COVID-19 virus infection: PLAN: 1. DKA with encephalopathy with high anion gap metabolic acidosis: Patient is admitted in ICU. Most recent labs shows anion gap 27, bicarb 5, sodium 134. Glucose 577. Phosphorus 4.0. Lab is getting draw. Serum acetone large. Currently on half-normal saline with 20 M EQ of potassium chloride.ABG showed pH of less than 7 and bicarbonate was at 2. Patient required bicarbonate IV push. A1c 10.9. BMP every 4 hours to calculate anion gap. Monitor intake and output. 2. Leukocytosis Review of labs showed white count of 12.0. Likely reactive. Monitor CBC 3. RUTH/dehydration: BUN/creatinine 34/1.5 improving since admission. BUN/creatinine ratio 18.3. Admitted with creatinine 1.0. Baseline creatinine normal 0.97 Avoid nephrotoxic medications 4. COVID-19 infection Not hypoxic. 5. Acute encephalopathy probably metabolic due to DKA:Avoid all p.o. meds secondary to encephalopathy. Does not meet criteria for dexamethasone for COVID-19 infection and patient is also confused and disoriented which steroid might worsen further. DVT prophylaxis: Subcutaneous Lovenox ordered. Charges/Coding Visit Charges Inpatient E&M: 37690 Subs Hosp L3
[2021-11-30 09:35] LABS: Bedside Glucose > 500 mg/dL (70-110)
[2021-11-30 09:35] LABS: Bedside Glucose > 500 mg/dL (70-110)
[2021-11-30 09:35] LABS: Bedside Glucose > 500 mg/dL (70-110)
[2021-11-30 09:35] LABS: Bedside Glucose 428 mg/dL (70-110)
[2021-11-30 09:35] LABS: Bedside Glucose 480 mg/dL (70-110)
[2021-11-30 09:35] LABS: Bedside Glucose > 500 mg/dL (70-110)
[2021-11-30 09:35] LABS: Bedside Glucose 450 mg/dL (70-110)
[2021-11-30 09:35] LABS: Bedside Glucose > 500 mg/dL (70-110)
[2021-11-30 09:41] LABS: Anion Gap 24 (5-15); BUN 32 mg/dL (7-18); BUN/Creat Ratio 22.5 RATIO (10-20); Calcium,Total 8.5 mg/dL (8.5-10.1); Chloride 107 mmol/L (98-107); Creatinine, Serum 1.42 mg/dL (0.55-1.02); EST Glomerular Filtration Rate 41 mL/min (>60); Est Glom Filt Rate - Afr Amer 50 mL/min (>60); Estimated Creatinine Clearance 37.07 ml/min; Glucose 420 mg/dL (74-106); Potassium 4.2 mmol/L (3.5-5.1); Sodium Level 136 mmol/L (136-145)
[2021-11-30] MEDS: Enoxaparin 30 MG/0.3 ML Syringe SC (11:44)
[2021-11-30 12:15] LABS: Bedside Glucose 330 mg/dL (70-110)
[2021-11-30 13:01] LABS: Bedside Glucose 350 mg/dL (70-110)
[2021-11-30 14:00] LABS: Bedside Glucose 419 mg/dL (70-110)
[2021-11-30 14:00] LABS: Bedside Glucose 378 mg/dL (70-110)
--- NOTE | 2021-11-30 14:05 | CASEMGMT ---
RN CM attempted to call to complete assessment as patient is drowsy and only alert to self. RN CM called , no answer, voice message left with return contact information.
--- NOTE | 2021-11-30 14:14 | CASEMGMT ---
RN CM called for initial transition planning/care coordination assessment as patient is drowsy and only alert to self. RN CM introduced self and role at [facility]. , Vel, willing to participate in assessment and is able to answer all questions appropriately. Care providers, pharmacy, and demographics verified. wishes for patient to discharge home, denies need for home health at this time. states he has no further needs or concerns at this time. CM to follow for discharge planning needs that may arise. PCP: Thomas Rhoades Specialists: none Preferred Pharmacy: [facility] Insurance: [employer] Prescription Benefit: yes Living Will/HPOA: none LNOK: Living Arrangements: Patient lives with in a single story home with 2 steps to enter. Patient is normally independent at home. Transportation: self/ DME/HHC: Patient has glucometer and testing supplies as well as insulin and needles. No previous HHC or SNF. Per patient had covid testing completed at [facility]. Disposition Plan: Patient to discharge home with family support and follow-up plans in place. Chetna ROGERN, RN, CM
[2021-11-30 14:26] LABS: Pathologist Review Reviewed
--- NOTE | 2021-11-30 14:39 | PCS.PANDOC ---
PANDEMIC DOCUMENTATION INITIATED: Date: 07/12/2021 Time: 190
[2021-11-30 15:03] LABS: Magnesium 2.4 mg/dL (1.6-2.6)
[2021-11-30 15:05] LABS: Anion Gap 19 (5-15); BUN 32 mg/dL (7-18); BUN/Creat Ratio 24.1 RATIO (10-20); Calcium,Total 8.4 mg/dL (8.5-10.1); Chloride 110 mmol/L (98-107); Creatinine, Serum 1.33 mg/dL (0.55-1.02); EST Glomerular Filtration Rate 45 mL/min (>60); Est Glom Filt Rate - Afr Amer 54 mL/min (>60); Estimated Creatinine Clearance 39.58 ml/min; Glucose 317 mg/dL (74-106); Potassium 4.3 mmol/L (3.5-5.1); Sodium Level 138 mmol/L (136-145)
[2021-11-30 15:21] LABS: Bedside Glucose 278 mg/dL (70-110)
[2021-11-30 15:21] LABS: Bedside Glucose 286 mg/dL (70-110)
[2021-11-30] MEDS: 0.9% Normal Saline 1,000 ML 999 ML IV (15:37)
[2021-11-30 16:21] LABS: Bedside Glucose 250 mg/dL (70-110)
[2021-11-30 16:31] LABS: Bedside Glucose 201 mg/dL (70-110)
[2021-11-30] MEDS: Dext 5%-0.45% NS 1,000 ML 150 ML IV ×2 (17:00→23:41)
[2021-11-30 17:08] LABS: Anion Gap 14 (5-15); BUN 32 mg/dL (7-18); BUN/Creat Ratio 25.2 RATIO (10-20); Calcium,Total 7.9 mg/dL (8.5-10.1); Chloride 112 mmol/L (98-107); Creatinine, Serum 1.27 mg/dL (0.55-1.02); EST Glomerular Filtration Rate 47 mL/min (>60); Est Glom Filt Rate - Afr Amer 57 mL/min (>60); Estimated Creatinine Clearance 41.45 ml/min; Glucose 248 mg/dL (74-106); Sodium Level 140 mmol/L (136-145)
[2021-11-30] MEDS: Lactated Ringers 1,000 ML 999 ML IV (17:50)
[2021-11-30 18:16] LABS: Bedside Glucose 208 mg/dL (70-110)
[2021-11-30 18:16] LABS: Bedside Glucose 208 mg/dL (70-110)
[2021-11-30 18:50] LABS: Bedside Glucose 219 mg/dL (70-110)
[2021-11-30 20:31] LABS: Anion Gap 10 (5-15); BUN 31 mg/dL (7-18); BUN/Creat Ratio 23.3 RATIO (10-20); Calcium,Total 7.9 mg/dL (8.5-10.1); Chloride 113 mmol/L (98-107); Creatinine, Serum 1.33 mg/dL (0.55-1.02); EST Glomerular Filtration Rate 45 mL/min (>60); Est Glom Filt Rate - Afr Amer 54 mL/min (>60); Estimated Creatinine Clearance 39.58 ml/min; Glucose 213 mg/dL (74-106); Potassium 3.8 mmol/L (3.5-5.1); Sodium Level 141 mmol/L (136-145)
[2021-11-30 22:11] LABS: Bedside Glucose 198 mg/dL (70-110)
[2021-11-30 22:11] LABS: Bedside Glucose 218 mg/dL (70-110)
[2021-11-30 22:11] LABS: Bedside Glucose 189 mg/dL (70-110)
[2021-12-01] VITALS (19 sets, daily range): BP systolic 112–159; BP diastolic 61–90; PULSE 97–113; RESP 18–32; TEMP 36.3–37.5; O2SAT 98–100
[2021-12-01 00:16] LABS: Bedside Glucose 225 mg/dL (70-110)
[2021-12-01 00:16] LABS: Bedside Glucose 190 mg/dL (70-110)
[2021-12-01] MEDS: Ondansetron 4 MG/2 ML Vial 8 MG IV (01:35)
[2021-12-01] MEDS: Dext 5%-0.45% NS 1,000 ML 150 ML IV (07:07)
[2021-12-01 07:26] LABS: Anion Gap 12 (5-15); BUN 25 mg/dL (7-18); BUN/Creat Ratio 25.1 RATIO (10-20); Calcium,Total 7.8 mg/dL (8.5-10.1); Chloride 111 mmol/L (98-107); EST Glomerular Filtration Rate 62 mL/min (>60); Est Glom Filt Rate - Afr Amer 75 mL/min (>60); Estimated Creatinine Clearance 52.64 ml/min; Glucose 294 mg/dL (74-106); Potassium 3.2 mmol/L (3.5-5.1); Sodium Level 139 mmol/L (136-145)
[2021-12-01 08:35] LABS: Bedside Glucose 222 mg/dL (70-110)
[2021-12-01] MEDS: Insulin Lispro 100 UNIT/ML INSULN.PEN SC ×3 (08:35→16:10)
[2021-12-01] MEDS: Enoxaparin 30 MG/0.3 ML Syringe SC (08:37)
[2021-12-01] MEDS: Lactated Ringers 1,000 ML 75 ML IV ×2 (08:39→22:31)
[2021-12-01] MEDS: Ondansetron 4 MG/2 ML Vial IV ×3 (08:50→22:31)
[2021-12-01 08:55] LABS: Bedside Glucose 292 mg/dL (70-110)
[2021-12-01] MEDS: Potassium Chloride 10mEq/100mL 10 MEQ/100 ML IV.SOLN. 100 MEQ IV BOLUS ×4 (12:13→17:58)
[2021-12-01 12:25] LABS: Bedside Glucose 214 mg/dL (70-110)
--- NOTE | 2021-12-01 13:53 | PCS.PANDOC ---
PANDEMIC DOCUMENTATION INITIATED: Date: 07/12/2021 Time: 190
[2021-12-01 16:16] LABS: Bedside Glucose 199 mg/dL (70-110)
[2021-12-01] MEDS: 0.9% Saline Lock 10 ML Syringe IV (16:17)
--- NOTE | 2021-12-01 18:01 | PN.HOSP_ITS ---
Subjective Subjective Patient states she still feels very poorly and has not been able to take much p.o. She indicates she has been a type I diabetic for 38 years. She states she takes 15 units of basal insulin at 10 units with meals. She feels that her DKA was likely brought on by her acute Covid infection. She does feel poorly but remains on room air at this time. She was nonvaccinated. Objective Data Objective Data Vital Signs: Vital Signs Temp Pulse Resp BP Pulse Ox 98.8 F 113 H 18 148/82 H 99 12/01/21 14:00 12/01/21 14:00 12/01/21 14:00 12/01/21 14:00 12/01/21 14:00 Oxygen Delivery Method Room Air Weight: 77.5 kg Body Mass Index (BMI) 30.9 Intake & Output: Intake and Output for Last 24 Hours 11/29/21 11/30/21 12/01/21 23:59 23:59 23:59 Intake Total 682.65 / 682.65 6249.77 / 6254.77 3550 / 3550 Output Total 1355 / 1355 775 / 775 Balance 682.65 / 682.65 4894.77 / 4899.77 2775 / 2775 Lab / Micro Data Result Diagrams: 11/30/21 03:40 12/01/21 05:30 Labs: Laboratory Results - last 24 hr 11/30/21 17:11: POC Glucose 208 H 11/30/21 18:08: POC Glucose 208 H 11/30/21 18:46: POC Glucose 219 H 11/30/21 20:01: POC Glucose 198 H 11/30/21 20:05: Sodium 141, Potassium 3.8, Chloride 113 H, Carbon Dioxide 18.0 L , Anion Gap 10, BUN 31 H, Creatinine 1.33 H, Estim Creat Clear Calc 39.58, Est GFR (MDRD) Af Amer 54 L, Est GFR (MDRD) Non-Af 45 L, BUN/Creatinine Ratio 23.3 H , Glucose 213 H, Calcium 7.9 L 11/30/21 20:50: POC Glucose 218 H 11/30/21 22:04: POC Glucose 189 H 11/30/21 22:53: POC Glucose 225 H 12/01/21 00:00: POC Glucose 190 H 12/01/21 03:29: POC Glucose 222 H 12/01/21 05:30: Sodium 139, Potassium 3.2 L, Chloride 111 H, Carbon Dioxide 16.0 L, Anion Gap 12, BUN 25 H, Creatinine 1.00, Estim Creat Clear Calc 52.64, Est GFR (MDRD) Af Amer 75, Est GFR (MDRD) Non-Af 62, BUN/Creatinine Ratio 25.1 H, Glucose 294 H, Calcium 7.8 L 12/01/21 08:30: POC Glucose 292 H 12/01/21 12:08: POC Glucose 214 H 12/01/21 16:09: POC Glucose 199 H Micro: Microbiology 11/29/21 22:50 Interface Orders SARS-CoV-2 Antigen (Rapid) - Final SARS-CoV-2 (COVID 19) Rhythm Strip Rhythm Strip: Sinus Rhythm Rate: 98 Ectopy: None Physical Exam Const alert and oriented x3 Constitutional Narrative: Obese middle-aged white female who appears as if she is not feeling well, sitting up in bed with emesis bag next to her, intermittent gagging, no respiratory distress and remains on room air Exam Limitations: no limitations Nutritional Appearance: obese HEENT head/scalp atraumatic, moist oral mucous membranes and oropharynx normal HEENT Narrative: Mallampati 3, no thrush, good dentition Head and Scalp: normocephalic Resp normal respiratory effort, no retractions, no use of accessory muscles and clear to auscultation bilaterally Auscultation: Negative for crackles, rales, rhonchi or wheezes Cardio regular rhythm, S1 normal heart sound, S2 normal heart sound, no murmurs, no rub, no gallops, no clicks and no JVD GI normal to inspection, nondistended, normoactive bowel sounds, soft to palpation, non-tender and non-distended Extremity no clubbing, cyanosis or edema Peripheral Pulses: Yes pulses 2+ throughout Neuro oriented x3, moves all extremities and no focal motor deficits Sensorium / Orientation: awake and alert Speech: speech normal Psych Psych Narrative: Affect is flattened patient appears if she is not feeling well Assessment & Plan Assessment/Plan (1) Hypokalemia: (2) COVID-19 virus infection: (3) RUTH (acute kidney injury): (4) DKA, type 1: QUALIFIERS: Diabetes mellitus complication detail: without coma Qualified Code(s): E10.10 - Type 1 diabetes mellitus with ketoacidosis without coma (5) Metabolic acidosis: PLAN: DKA -Patient states she does not have significant issues with previous episodes of DKA -Suspect this is related to acute Covid infection -Decreased p.o. intake with Covid infection -Patient is now off the insulin drip -With lacking p.o. intake well continue IV fluids but change to LR at 75 cc/h -We will utilize Lantus 30 units at at bedtime and sliding scale for now -DKA has resolved DM-1 -Patient states she takes 15 units of Basaglar at at bedtime and 10 units of log with meals -We will utilize Lantus 30 units at at bedtime for now -She did receive a dose last evening for this and blood sugars still remain elevated however patient is no longer in DKA -Sliding scale added -Discontinue dextrose -Carb controlled diet -Check hemoglobin A1c Acute COVID-19 infection -Suspect this is the etiology for her nausea and intermittent vomiting -Continue antiemetics -Continue IV fluids -Patient is currently on room air -If she clinically improves we may be able to discharge her to receive monoclonal antibodies if she remains off supplemental oxygen -Patient is nonvaccinated -Date of symptom initiation is unclear at this time and will need to be clarified for isolation recommendations Hypokalemia -40 mEq p.o. potassium given -Recheck in a.m. Non-anion gap metabolic acidosis secondary to elevated chloride -IV fluids were changed -Repeat lab in a.m. Low back pain -Hold Flexeril and oxycodone given lack of ability to take p.o. DVT prophylaxis -Continue enoxaparin 30 mg daily CODE STATUS -full code Charges/Coding Visit Charges Inpatient E&M: 19972 Subs Hosp L2
--- NOTE | 2021-12-01 23:04 | RAD_ITS ---
STUDY: X-RAY CHEST REASON FOR EXAM: Female, 51 years old. Low-grade fever. COVID positive. TECHNIQUE: Single AP portable view of the chest. COMPARISON: 11/29/2021. FINDINGS: There is a right-sided PICC line with its tip in the mid to distal superior vena cava. There is a decreased inspiratory effort. There are patchy groundglass infiltrates throughout both lungs increased from prior study. There is no demonstrated pleural abnormality. Normal size heart. Normal mediastinum and alexandra. Normal visualized pulmonary arteries. Normal visualized aortic arch and descending thoracic aorta. Normal visualized thoracic spine. Normal visualized ribs, clavicles, and shoulders. There is no demonstrated abnormality of the visualized soft tissue structures of the upper abdomen. RAD/Chest 1 View (Portable) IMPRESSION: 1. Right sided PICC line. 2. Patchy groundglass pulmonary infiltrates, suggestive of covert pneumonia. Electronically Signed: David Gandhi DO at 23:57 EST Tel [phone], Service support ,
[2021-12-01] MEDS: proCHLORPERazine 10 MG/2 ML Vial 5 MG IV (23:46)
[2021-12-01] MEDS: Acetaminophen 325 MG Tablet 650 MG PO (23:53)
[2021-12-02] VITALS (11 sets, daily range): BP systolic 100–154; BP diastolic 61–105; PULSE 99–112; RESP 20; TEMP 37.5–38; O2SAT 90–98
[2021-12-02 00:31] LABS: Bedside Glucose 173 mg/dL (70-110)
--- NOTE | 2021-12-02 00:51 | PCM.PN.BLA ---
Progress Note Patient with rales. Chest x-ray now showing increased patchy infiltrates. Stop IV fluids. Of note patient is nauseated. If patient continues to be nauseated and not taking p.o. consider resuming IV fluids.
--- NOTE | 2021-12-02 00:53 | RAD_ITS ---
STUDY: X-RAY - ABDOMEN/PELVIS REASON FOR EXAM: Female, 51 years old. Nausea TECHNIQUE: Two AP supine views of the abdomen and pelvis. COMPARISON: None. FINDINGS: Normal visualized lung bases. There is an unremarkable bowel gas pattern. There is no demonstrated free abdominal air. The visualized liver, spleen and kidneys are grossly normal in size and morphology. Normal soft tissue structures. Normal visualized osseous structures. RAD/Abdomen Single View (Portable) IMPRESSION: Normal x-ray examination of the abdomen and pelvis. Electronically Signed: Blaise Wallace MD at 2:26 EST Tel , Service support ,
[2021-12-02] MEDS: Acetaminophen 325 MG Tablet 650 MG PO ×2 (05:41→22:24)
[2021-12-02 05:48] LABS: Absolute Lymphocyte Count 0.49 X10^3/uL (0.83-4.51); Absolute Neutrophil Count 5.6 X10^3/uL (2.0-7.7); Basophil# 0.01 X10^3/uL; Basophil% 0.2 % (0-1); Hematocrit 35.7 % (37-47); Hemoglobin 12.7 g/dL (12.0-15.0); Lymphocyte # 0.49 X10^3/ul (0.83-4.51); Lymphocyte % 7.6 % (19-41); Mean Corp Hgb Conc 35.6 g/dL (32-36); Mean Corpuscular Hgb 28.1 pg (27.0-32.0); Monocyte# 0.22 X10^3/uL; Monocyte% 3.4 % (0-10); NRBC Flagged by Analyzer 0 % (0-5); Neutrophil # 5.61 X10^3/uL (2.7-7.7); Neutrophil % 87.4 % (47-70); POSITIVE DIFFERENTIAL YES; Platelet Count 180 K/mm3 (150-450); RBC Distribution Width CV 12.7 % (11.6-14.6); Red Blood Count 4.52 M/mm3 (4.2-5.4); White Blood Count 6.4 K/mm3 (4.4-11.0)
[2021-12-02] MEDS: proCHLORPERazine 10 MG/2 ML Vial 5 MG IV (05:49)
[2021-12-02 05:52] LABS: Differential Indicated SCAN CRITERIA MET
[2021-12-02] MEDS: BENZOCAINE/MENTHOL 1 LOZENGE MUCOUS MEM ×2 (06:02→22:25)
[2021-12-02 06:13] LABS: Anion Gap 8 (5-15); BUN 10 mg/dL (7-18); BUN/Creat Ratio 12.9 RATIO (10-20); Calcium,Total 7.9 mg/dL (8.5-10.1); Chloride 110 mmol/L (98-107); Creatinine, Serum 0.78 mg/dL (0.55-1.02); EST Glomerular Filtration Rate 83 mL/min (>60); Est Glom Filt Rate - Afr Amer 101 mL/min (>60); Estimated Creatinine Clearance 67.49 ml/min; Glucose 144 mg/dL (74-106); Magnesium 2.2 mg/dL (1.6-2.6); Potassium 3.1 mmol/L (3.5-5.1); Sodium Level 140 mmol/L (136-145)
[2021-12-02 06:23] LABS: Procalcitonin 0.29 ng/mL (0.00-0.09)
[2021-12-02 06:53] LABS: Differential Comment SCANNED
[2021-12-02 07:55] LABS: AST(SGOT) 33 U/L (15-37); Alanine Aminotransfer ALT/SGPT 22 U/L (13-56); Albumin, Serum 1.9 g/dL (3.2-5.0); Alkaline Phosphatase 141 U/L (45-117); Globulin 3.8 g/dL (2.2-4.2); Protein, Total 5.7 g/dL (6.4-8.2)
[2021-12-02] MEDS: Enoxaparin 30 MG/0.3 ML Syringe SC (10:49)
[2021-12-02] MEDS: guaiFENesin 600 MG Tablet PO ×2 (10:50→22:32)
[2021-12-02 11:35] LABS: Bedside Glucose 115 mg/dL (70-110)
[2021-12-02 13:35] LABS: Bedside Glucose 145 mg/dL (70-110)
--- NOTE | 2021-12-02 14:17 | PN.HOSP_ITS ---
Subjective Subjective Patient states that she is feeling better. Her nausea and vomiting have improved significantly. She states her p.o. intake is still not great as she is having significant sore throat. She states it feels like she is swallowing razor blades. She indicates she does not frequently get strep throat or have any throat infections on a regular basis. She feels that this if this improves she be able to eat better. Chloraseptic lozenges did not help her. Objective Data Objective Data Vital Signs: Vital Signs Temp Pulse Resp BP Pulse Ox 99.5 F H 100 20 H 100/61 98 12/02/21 10:00 12/02/21 13:36 12/02/21 10:00 12/02/21 10:00 12/02/21 10:00 Oxygen Delivery Method Room Air Weight: 78.9 kg Body Mass Index (BMI) 30.9 Intake & Output: Intake and Output for Last 24 Hours 11/30/21 12/01/21 12/02/21 23:59 23:59 23:59 Intake Total 6249.77 / 6254.77 4650 / 4650 1000.00 / 1000.00 Output Total 1355 / 1355 775 / 1725 1850 / 1850 Balance 4894.77 / 4899.77 3875 / 2925 -850.00 / -850.00 Lab / Micro Data Result Diagrams: 12/02/21 04:26 12/02/21 04:26 Labs: Laboratory Results - last 24 hr 12/01/21 16:09: POC Glucose 199 H 12/01/21 22:34: POC Glucose 173 H 12/02/21 04:26: WBC 6.4, RBC 4.52, Hgb 12.7, Hct 35.7 L, MCV 79.0 L D, MCH 28.1, MCHC 35.6 D, RDW Std Deviation 36.0, RDW Coeff of Jacquelin 12.7, Plt Count 180, MPV 10.0, Immature Gran % (Auto) 1.400 H, Neut % (Auto) 87.4 H, Lymph % (Auto) 7.6 L , Johnston % (Auto) 3.4, Eos % (Auto) 0.0, Baso % (Auto) 0.2, Absolute Neuts (auto) 5.6, Absolute Lymphs (auto) 0.49 L, Nucleated RBC % 0, Differential Comment SCANNED 12/02/21 04:26: Sodium 140, Potassium 3.1 L, Chloride 110 H, Carbon Dioxide 22.0, Anion Gap 8, BUN 10, Creatinine 0.78, Estim Creat Clear Calc 67.49, Est GFR (MDRD) Af Amer 101, Est GFR (MDRD) Non-Af 83, BUN/Creatinine Ratio 12.9, Glucose 144 H, Calcium 7.9 L, Magnesium 2.2 12/02/21 04:26: Phosphorus 1.0 L* 12/02/21 04:26: Procalcitonin 0.29 H 12/02/21 04:26: Total Bilirubin 0.50, Direct Bilirubin 0.10, AST 33, ALT 22, Alkaline Phosphatase 141 H, Total Protein 5.7 L, Albumin 1.9 L, Globulin 3.8 12/02/21 06:08: POC Glucose 115 H 12/02/21 13:27: POC Glucose 145 H Micro: Microbiology 12/02/21 13:30 Mucosa - Throat Group A Streptococcus Rapid Screen - Preliminary 11/29/21 22:50 Interface Orders SARS-CoV-2 Antigen (Rapid) - Final SARS-CoV-2 (COVID 19) Radiography Diagnostic Testing: Radiology Impression Chest X-Ray 12/01/21 23:04 IMPRESSION: 1. Right sided PICC line. 2. Patchy groundglass pulmonary infiltrates, suggestive of covert pneumonia. Electronically Signed: David Gandhi DO at 23:57 EST Tel [phone], Service support , KUB X-Ray 12/02/21 00:53 IMPRESSION: Normal x-ray examination of the abdomen and pelvis. Electronically Signed: Blaise Wallace MD at 2:26 EST Tel , Service support , Rhythm Strip Rhythm Strip: Sinus Rhythm Rate: 98 Ectopy: None Physical Exam Const alert, oriented x3 and no apparent distress Constitutional Narrative: Obese middle-aged white female who appears as if she is feeling better today, sitting up in a chair at the bedside, much less ill- appearing and more appropriately interactive Exam Limitations: no limitations Nutritional Appearance: obese HEENT head/scalp atraumatic, moist oral mucous membranes and oropharynx normal HEENT Narrative: Erythema in the posterior soft palate and oropharynx with white exudates bilaterally right greater than left in the peritonsillar region Head and Scalp: normocephalic Neck supple and no JVD Neck Narrative: Submandibular lymphadenopathy noted on exam with mild tenderness in this region Resp normal respiratory effort, no retractions, no use of accessory muscles and clear to auscultation bilaterally Auscultation: Negative for crackles, rales, rhonchi or wheezes Cardio regular rate, regular rhythm, S1 normal heart sound, S2 normal heart sound, no murmurs, no rub, no gallops, no clicks and no JVD GI normal to inspection, nondistended, normoactive bowel sounds, soft to palpation, non-tender and non-distended Extremity no clubbing, cyanosis or edema Peripheral Pulses: Yes pulses 2+ throughout Neuro oriented x3, moves all extremities and no focal motor deficits Sensorium / Orientation: awake and alert Speech: speech normal Psych Psych Narrative: Much more appropriate and interactive today Assessment & Plan Assessment/Plan (1) Hypokalemia: (2) COVID-19 virus infection: (3) RUTH (acute kidney injury): (4) DKA, type 1: QUALIFIERS: Diabetes mellitus complication detail: without coma Qualified Code(s): E10.10 - Type 1 diabetes mellitus with ketoacidosis without coma (5) Metabolic acidosis: (6) Hypophosphatemia: PLAN: DKA -Resolved DM-1 -Patient states she takes 15 units of Basaglar at at bedtime and 10 units of log with meals -We will utilize Lantus 30 units at at bedtime for now -Fasting sugars 144 this morning -P.o. intake remains poor -Continue sliding scale -Continue IV fluids at this time with poor p.o. intake -Carb controlled diet -Hemoglobin A1c is 10.9 on 11/29/2021 Acute COVID-19 infection -Suspect this is the etiology for her nausea and intermittent vomiting -Nausea vomiting has resolved -Continue IV fluids -Patient is currently on room air -If she clinically improves we may be able to discharge her to receive monoc lonal antibodies if she remains off supplemental oxygen -Patient is nonvaccinated -Date of symptom initiation is unclear at this time and will need to be clarified for isolation recommendations Pharyngitis -Rapid strep negative -We will check throat culture -Exudates present on exam -Viscous lidocaine ordered Hypokalemia - IV K-Phos bolus ordered -Repeat lab in a.m. Hypophosphatemia -K-Phos bolus -Repeat lab in a.m. Non-anion gap metabolic acidosis secondary to elevated chloride -Resolved Low back pain -Hold Flexeril and oxycodone given lack of ability to take p.o. DVT prophylaxis -Continue enoxaparin 30 mg daily CODE STATUS -full code Charges/Coding Visit Charges Inpatient E&M: 78099 Subs Hosp L2
[2021-12-02 18:50] LABS: Bedside Glucose 182 mg/dL (70-110)
[2021-12-03] VITALS (14 sets, daily range): BP systolic 92–159; BP diastolic 63–91; PULSE 90–103; RESP 16–20; TEMP 2.9–37.6; O2SAT 90–98
[2021-12-03 00:11] LABS: Bedside Glucose 218 mg/dL (70-110)
--- NOTE | 2021-12-03 02:29 | NURSING ---
TOOK THE PTS BP, THEN GOT HER UP TO THE RESTROOM, PT VERY DIZZY, ONCE BACK IN BED SHE SAT ON THE EDGE OF THE BED AND THE BP WAS RETAKEN, SIGNIFICANT ORTHOSTATIC DROP FROM 159 TO 101/67
[2021-12-03 06:03] LABS: Anion Gap 7 (5-15); BUN 11 mg/dL (7-18); BUN/Creat Ratio 17.6 RATIO (10-20); Calcium,Total 7.9 mg/dL (8.5-10.1); Chloride 105 mmol/L (98-107); Creatinine, Serum 0.62 mg/dL (0.55-1.02); EST Glomerular Filtration Rate 107 mL/min (>60); Est Glom Filt Rate - Afr Amer 129 mL/min (>60); Glucose 152 mg/dL (74-106); Sodium Level 140 mmol/L (136-145)
[2021-12-03] MEDS: Acetaminophen 325 MG Tablet 650 MG PO ×3 (07:17→21:11)
[2021-12-03 07:36] LABS: Bedside Glucose 84 mg/dL (70-110)
[2021-12-03] MEDS: Enoxaparin 30 MG/0.3 ML Syringe SC (09:32)
[2021-12-03] MEDS: guaiFENesin 600 MG Tablet PO ×2 (09:32→21:11)
[2021-12-03 12:20] LABS: Bedside Glucose 73 mg/dL (70-110)
--- NOTE | 2021-12-03 14:56 | CASEMGMT ---
Pt does not qualify for home oxygen at discharge. Pt states no further needs with going home at time of discharge. Pt states has been up in room. Ondina KENDALL CM
--- NOTE | 2021-12-03 15:25 | PN.HOSP_ITS ---
Subjective Subjective Patient is still having significant pharyngitis. She states the viscous lidocaine has helped her be able to swallow liquids although regular solid diet is not a possibility yet secondary to the severity of her pharyngitis. Rapid strep was negative but throat culture is pending. Patient states she is otherwise feeling fairly well. She is a little foggy in the brain and thinks this may be related to her Covid. Was on oxygen overnight but is now on room air again with oxygen saturations 95 to 98%. I did discuss with the patient the possibility that she has obstructive sleep apnea and she admits that she knows she has and agrees to potentially pursue outpatient polysomnography for diagnosis. Objective Data Objective Data Vital Signs: Vital Signs Temp Pulse Resp BP Pulse Ox 98.0 F 92 18 92/63 95 12/03/21 12:41 12/03/21 12:41 12/03/21 12:41 12/03/21 12:41 12/03/21 15:15 Oxygen Flow Rate (L/min) 1 Oxygen Delivery Method Room Air Weight: 79.1 kg Body Mass Index (BMI) 30.9 Intake & Output: Intake and Output for Last 24 Hours 12/01/21 12/02/21 12/03/21 23:59 23:59 23:59 Intake Total 4650 / 4650 1513.3333 / 1513.3333 120 / 120 Output Total 775 / 1725 1850 / 2150 300 / 300 Balance 3875 / 2925 -336.6667 / -636.6667 -180 / -180 Lab / Micro Data Result Diagrams: 12/02/21 04:26 12/03/21 04:14 Labs: Laboratory Results - last 24 hr 12/02/21 18:31: POC Glucose 182 H 12/02/21 22:31: POC Glucose 218 H 12/03/21 04:14: Sodium 140, Potassium 3.0 L, Chloride 105, Carbon Dioxide 28.0, Anion Gap 7, BUN 11, Creatinine 0.62, Estim Creat Clear Calc 84.90, Est GFR (MDR D) Af Amer 129, Est GFR (MDRD) Non-Af 107, BUN/Creatinine Ratio 17.6, Glucose 152 H, Calcium 7.9 L 12/03/21 04:19: Phosphorus 2.0 L 12/03/21 07:14: POC Glucose 84 12/03/21 11:54: POC Glucose 73 Micro: Microbiology 12/02/21 13:30 Mucosa - Throat Group A Streptococcus Rapid Screen - Preliminary 11/29/21 22:50 Interface Orders SARS-CoV-2 Antigen (Rapid) - Final SARS-CoV-2 (COVID 19) Rhythm Strip Rhythm Strip: Sinus Rhythm Rate: 98 Ectopy: None Physical Exam Const alert, oriented x3 and no apparent distress Constitutional Narrative: Obese middle-aged white female sitting up in a chair at the bedside, watching television, appears overall well, on room air Exam Limitations: no limitations Nutritional Appearance: obese HEENT head/scalp atraumatic, moist oral mucous membranes and oropharynx normal HEENT Narrative: posterior pharynx erythema without exudates today Head and Scalp: normocephalic Neck supple Neck Narrative: Submandibular lymphadenopathy noted on exam with mild tenderness in this region Resp normal respiratory effort, no retractions, no use of accessory muscles and clear to auscultation bilaterally Resp Narrative: Few scattered wheeze that clear with cough Auscultation: wheezes; Negative for crackles, rales or rhonchi Cardio regular rate, regular rhythm, S1 normal heart sound, S2 normal heart sound, no murmurs, no rub, no gallops, no clicks and no JVD GI normal to inspection, nondistended, normoactive bowel sounds, soft to palpation, non-tender and non-distended Extremity no clubbing, cyanosis or edema Peripheral Pulses: Yes pulses 2+ throughout Neuro oriented x3, moves all extremities and no focal motor deficits Sensorium / Orientation: awake and alert Speech: speech normal Assessment & Plan Assessment/Plan (1) Hypokalemia: (2) COVID-19 virus infection: (3) RUTH (acute kidney injury): (4) Metabolic acidosis: (5) Hypophosphatemia: (6) Pharyngitis: PLAN: DKA -Resolved DM-1 -Patient states she takes 15 units of Basaglar at at bedtime and 10 units of log with meals -We will utilize Lantus 30 units at at bedtime for now -Fasting sugars 152 this morning -P.o. intake remains poor -Continue sliding scale -Continue IV fluids at this time with poor p.o. intake -Carb controlled diet -Hemoglobin A1c is 10.9 on 11/29/2021 Acute COVID-19 infection -Suspect this is the etiology for her nausea and intermittent vomiting -off IVF -Patient remains on RA and does not need O2 with ambulation -If she clinically improves with swallowing we may be able to discharge her to receive monoclonal antibodies if she remains off supplemental oxygen -Patient is nonvaccinated Pharyngitis -Rapid strep negative -Throat culture is pending -Exudates present on exam yesterday -Viscous lidocaine has helped symptoms but p.o. intake is still not great -We will start antibiotics today with a azithromycin 500 mg daily for 5 days -If patient able to eat better tomorrow we will plan for discharge Hypokalemia -Repeat K-Phos bolus -Repeat lab in a.m. Hypophosphatemia -Repeat K-Phos bolus -Repeat lab in a.m. Low back pain -Hold Flexeril and oxycodone given lack of ability to take p.o. DVT prophylaxis -Continue enoxaparin 30 mg daily CODE STATUS -full code Charges/Coding Visit Charges Inpatient E&M: 42681 Subs Hosp L2
[2021-12-03 16:14] LABS: Internal QC Validated? YES +Cl - CLEAR BKGD; Monotest Negative (Negative)
[2021-12-03] MEDS: Azithromycin 250 MG Tablet 500 MG PO (17:02)
[2021-12-03 17:15] LABS: Bedside Glucose 112 mg/dL (70-110)
[2021-12-03] MEDS: BENZOCAINE/MENTHOL 1 LOZENGE MUCOUS MEM (21:11)
[2021-12-03 21:16] LABS: Bedside Glucose 102 mg/dL (70-110)
[2021-12-04] VITALS (10 sets, daily range): BP systolic 119–158; BP diastolic 65–87; PULSE 76–102; RESP 16–20; TEMP 35.7–37.5; O2SAT 92–98
[2021-12-04] MEDS: 0.9% Saline Lock 10 ML Syringe IV (01:18)
[2021-12-04] MEDS: Acetaminophen 325 MG Tablet 650 MG PO ×3 (03:23→18:16)
[2021-12-04 06:40] LABS: Bedside Glucose 89 mg/dL (70-110)
[2021-12-04 08:44] LABS: Anion Gap 8 (5-15); BUN 10 mg/dL (7-18); BUN/Creat Ratio 16.2 RATIO (10-20); Calcium,Total 7.5 mg/dL (8.5-10.1); Chloride 105 mmol/L (98-107); Creatinine, Serum 0.62 mg/dL (0.55-1.02); EST Glomerular Filtration Rate 108 mL/min (>60); Est Glom Filt Rate - Afr Amer 131 mL/min (>60); Glucose 84 mg/dL (74-106); Sodium Level 144 mmol/L (136-145)
[2021-12-04] MEDS: Benzonatate 100 MG Capsule PO ×3 (09:22→21:33)
[2021-12-04] MEDS: guaiFENesin 600 MG Tablet PO ×2 (09:22→21:33)
[2021-12-04] MEDS: Azithromycin 250 MG Tablet 500 MG PO (09:22)
[2021-12-04] MEDS: Enoxaparin 30 MG/0.3 ML Syringe SC (09:22)
--- NOTE | 2021-12-04 11:14 | PCM.CONS.GEN ---
Assessment & Plan Assessment/Plan (1) Pharyngitis: PLAN: This patent presents with COVID associated DKA and now complains of persistent sore throat. Culture has revealed Staph aureus and normal oral chaim. Although Staph aureus may present as the dominant organism on a throat culture in some patients as a normal oral chaim, it also can result in bacterial pharyngitis and tonsillitis. Studies have shown response to Staph aureus with azithromycin, although the primary treatment in the absence of demonstrated resistance remains penicillins. Allergy to this class is noted in the patient and is so contraindicated. Clindamycin, and Bactrim may be considered if there is no improvement with azithromycin, or cultures indicate resistance to this agent. She has been afebrile with a normal WBC which makes invasive infection unlikely. As the pharyngitis seems to be complicating her discharge planning, I would suggest the addition of oral Nystatin rinse and swallow for coverage of possible fungal pharyngitis as this is a common condition in the diabetic patient. It also must be considered most likely given that severe sore throat is reported in about 15% of COVID patients as part of the viral syndrome, that this is the cause of her sore throat. Sore throat is a common associated symptoms and this seems especially true of the Omicron variant per reports, and in this setting this seems a likely factor to her sore throat complaint. Ongoing support with topical analgesia and oral care is advised with improvement as viral clearance progresses is anticipated. HPI Consult Data Date of Consult: 12/04/21 HPI Narrative HPI Narrative: JANICE ROLLINS, is a 51 F who presents with bothersome sore throat in the setting of active COVID infection with DKA from a lapse in diabetic management. Consultation has been placed due to persistent pharyngitis that has limited oral intake. Review of her records reveal a pharyngeal swab negative for Group A Strep, but positive for Staph aureus and sensitivities remain pending at this time. She has been managed with oral lidocaine and recently started on azithromycin antibiotic coverage. Pharyngeal erythema without exudates is reported on her most recent exam. Her overall condition has improved and discharge is anticipated in the next 24 hours. I have talked with nursing regarding the patient and the concerns prompting this consult request. Given that no exam finding has been identified of concern and the documentation of clinical improvement and available labs, I have opted for remote assessment and recommendations to reduce personal COVID exposure in this actively infected and contagious patient. If there are other issues of concern that have not been communicated, I am happy to discuss these further with the attending physician to arrange for an in person evaluation, but at this time there is no indication for any surgical intervention. [facility] Medical History (Updated 12/04/21 @ 00:01 by Dilcia Carranza) Hypertension Type 1 diabetes Home Medications hydrochlorothiazide 25 mg PO DAILY PRN PRN 12/25/13 [History Last Taken Unknown] insulin glargine [Lantus SoloStar Pen] 20 units SQ QHS 12/25/13 [History Last Taken Unknown] insulin glulisine U-100 [Apidra] unit SQ 12/25/13 [History Last Taken Unknown] meclizine 25 mg PO TID PRN PRN #20 tab 08/17/16 [Rx Last Taken Unknown] ondansetron 4 mg PO Q8H PRN PRN #10 tab 08/17/16 [Rx Last Taken Unknown] cyclobenzaprine 10 mg PO BID PRN #10 tab 11/26/21 [Rx Last Taken Unknown] hydrocodone-acetaminophen 1 tab PO Q6H PRN 3 Days #10 tab 11/26/21 [Rx Last Taken Unknown] Allergy/AdvReac Type Severity Reaction Status Date / Time lisinopril AdvReac Other Verified 11/29/21 19:12 morphine AdvReac Vomiting Verified 11/29/21 19:12 Penicillins [PCN] AdvReac Other Verified 11/29/21 19:12 Family History Other Multiple sclerosis Surgical History History of carpal tunnel surgery Hx of hand surgery Social History Smoking Status: Never smoker substance use type: does not use Lab / Micro Data Result Diagrams: 12/02/21 04:26 12/04/21 06:47 Labs: Laboratory Results - last 24 hr 12/02/21 04:25: Monoscreen Negative 12/03/21 11:54: POC Glucose 73 12/03/21 17:00: POC Glucose 112 H 12/03/21 21:08: POC Glucose 102 12/04/21 06:30: POC Glucose 89 12/04/21 06:47: Sodium 144, Potassium 3.0 L, Chloride 105, Carbon Dioxide 31.0, Anion Gap 8, BUN 10, Creatinine 0.62, Estim Creat Clear Calc 84.90, Est GFR (MDRD) Af Amer 131, Est GFR (MDRD) Non-Af 108, BUN/Creatinine Ratio 16.2, Glucose 84, Calcium 7.5 L Micro: Microbiology 12/02/21 13:30 Mucosa - Throat Throat Culture - Preliminary Staphylococcus aureus 12/02/21 13:30 Mucosa - Throat Group A Streptococcus Rapid Screen - Final Rhythm Strip Rhythm Strip: Sinus Rhythm Rate: 98 Ectopy: None
[2021-12-04 12:06] LABS: Bedside Glucose 127 mg/dL (70-110)
[2021-12-04] MEDS: Ibuprofen 100 MG/5 ML UDC 400 MG PO (15:20)
[2021-12-04] MEDS: Sucralfate 1 GM Tablet PO (15:22)
[2021-12-04] MEDS: Insulin Lispro 100 UNIT/ML INSULN.PEN SC (16:57)
[2021-12-04 17:05] LABS: Bedside Glucose 260 mg/dL (70-110)
--- NOTE | 2021-12-04 17:10 | PN.HOSP_ITS ---
Subjective Subjective Patient is continuing to have persistent pharyngitis and it is continuing to interfere with her swallowing ability. P.o. intake remains poor overall secondary to this. ENT was consulted. Objective Data Objective Data Vital Signs: Vital Signs Temp Pulse Resp BP Pulse Ox 97.1 F L 93 18 136/80 H 98 12/04/21 15:25 12/04/21 15:25 12/04/21 15:25 12/04/21 15:25 12/04/21 16:54 Oxygen Flow Rate (L/min) 1 Oxygen Delivery Method Room Air Weight: 79.3 kg Body Mass Index (BMI) 30.9 Intake & Output: Intake and Output for Last 24 Hours 12/02/21 12/03/21 12/04/21 23:59 23:59 23:59 Intake Total 1513.3333 / 1513.3333 360 / 720 1333.3333 / 1333.3333 Output Total 1850 / 2150 300 / 300 Balance -336.6667 / -636.6667 60 / 420 1333.3333 / 1333.3333 Lab / Micro Data Result Diagrams: 12/02/21 04:26 12/04/21 06:47 Labs: Laboratory Results - last 24 hr 12/03/21 17:00: POC Glucose 112 H 12/03/21 21:08: POC Glucose 102 12/04/21 06:30: POC Glucose 89 12/04/21 06:47: Sodium 144, Potassium 3.0 L, Chloride 105, Carbon Dioxide 31.0, Anion Gap 8, BUN 10, Creatinine 0.62, Estim Creat Clear Calc 84.90, Est GFR (MDRD) Af Amer 131, Est GFR (MDRD) Non-Af 108, BUN/Creatinine Ratio 16.2, Glu cose 84, Calcium 7.5 L 12/04/21 12:01: POC Glucose 127 H 12/04/21 16:55: POC Glucose 260 H Micro: Microbiology 12/02/21 13:30 Mucosa - Throat Throat Culture - Preliminary Staphylococcus aureus 12/02/21 13:30 Mucosa - Throat Group A Streptococcus Rapid Screen - Final 11/29/21 22:50 Interface Orders SARS-CoV-2 Antigen (Rapid) - Final SARS-CoV-2 (COVID 19) Rhythm Strip Rhythm Strip: Sinus Rhythm Rate: 98 Ectopy: None Physical Exam Const alert, oriented x3 and no apparent distress Constitutional Narrative: Obese middle-aged white female sitting up in a chair at the bedside, watching television, appears overall well, remains on on room air Exam Limitations: no limitations Nutritional Appearance: obese HEENT head/scalp atraumatic, moist oral mucous membranes and oropharynx normal HEENT Narrative: Continued erythema with more of an exudate noted in throat appears to have almost been burned and healing at this time as compared to the last 24 hours when it had almost a petechial look Head and Scalp: normocephalic Resp normal respiratory effort, no retractions, no use of accessory muscles and clear to auscultation bilaterally Auscultation: Negative for crackles, rales, rhonchi or wheezes Cardio regular rate, regular rhythm, S1 normal heart sound, S2 normal heart sound, no murmurs, no rub, no gallops, no clicks and no JVD GI normal to inspection, nondistended, normoactive bowel sounds, soft to palpation, non-tender and non-distended Extremity no clubbing, cyanosis or edema Peripheral Pulses: Yes pulses 2+ throughout Neuro oriented x3, moves all extremities and no focal motor deficits Sensorium / Orientation: awake and alert Speech: speech normal Assessment & Plan Assessment/Plan (1) Hypokalemia: (2) COVID-19 virus infection: (3) RUTH (acute kidney injury): (4) Metabolic acidosis: (5) Hypophosphatemia: (6) Pharyngitis: PLAN: DKA -Resolved DM-1 -Patient states she takes 15 units of Basaglar at at bedtime and 10 units of log with meals -We will utilize Lantus 30 units at at bedtime for now -Fasting sugars 152 this morning -P.o. intake remains poor -Continue sliding scale -Trial off IV fluids -Carb controlled diet -Hemoglobin A1c is 10.9 on 11/29/2021 Acute COVID-19 infection -Suspect this is the etiology for her nausea and intermittent vomiting -off IVF -Patient remains on RA and does not need O2 with ambulation -If she clinically improves with swallowing we may be able to discharge her to receive monoclonal antibodies if she remains off supplemental oxygen -Patient is nonvaccinated Pharyngitis -Rapid strep negative -Throat culture with staph aureus -Add Tessalon Perles -Diflucan IV added -Viscous lidocaine -Given culture shows staph aureus will switch to doxycycline -ENT was consulted and also started oral nystatin -If patient able to eat better tomorrow we will plan for discharge Hypokalemia -P.o. potassium given liquid -BMP Hypophosphatemia -Resolved Low back pain -Hold Flexeril and oxycodone given lack of ability to take p.o. DVT prophylaxis -Continue enoxaparin 30 mg daily CODE STATUS -full code Charges/Coding Visit Charges Inpatient E&M: 62562 Subs Hosp L2
[2021-12-04] MEDS: Potassium Chloride Oral Soln 20 MEQ/15 ML UDC 40 MEQ PO (18:16)
[2021-12-04] MEDS: Doxycycline 100 MG CAPSULE PO (21:33)
--- NOTE | 2021-12-04 21:49 | PCM.PN.BLA ---
Progress Note Nurse reported patient is having poor p.o. intake and blood glucose last a.m. was 89 in the setting of patient not receiving any Lantus insulin last night. Currently patient has ordered Lantus 30 units nightly. Will change to 20 units nightly and see how patient fares
[2021-12-04 21:50] LABS: Bedside Glucose 277 mg/dL (70-110)
[2021-12-05] VITALS (10 sets, daily range): BP systolic 132–144; BP diastolic 77–79; PULSE 88–95; RESP 15–18; TEMP 35.7–36.9; O2SAT 95–100
[2021-12-05] MEDS: Ibuprofen 100 MG/5 ML UDC 400 MG PO (01:27)
[2021-12-05 06:26] LABS: Hematocrit 38.3 % (37-47); Hemoglobin 12.7 g/dL (12.0-15.0); Mean Corp Hgb Conc 33.2 g/dL (32-36); Mean Corpuscular Hgb 27.9 pg (27.0-32.0); Mean Platelet Vol. 9.6 fl (6.2-12.0); POSITIVE COUNT YES; POSITIVE MORPHOLOGY YES; Platelet Count 295 K/mm3 (150-450); RBC Distribution Width CV 13.6 % (11.6-14.6); RBC Distribution Width SD 41.9 fl (35.1-43.9); Red Blood Count 4.56 M/mm3 (4.2-5.4); White Blood Count 6.6 K/mm3 (4.4-11.0)
[2021-12-05 06:39] LABS: Differential Indicated MANUAL DIFF
[2021-12-05] MEDS: Benzonatate 100 MG Capsule PO ×3 (06:47→21:13)
[2021-12-05] MEDS: Insulin Lispro 100 UNIT/ML INSULN.PEN SC ×3 (06:48→17:14)
[2021-12-05 06:54] LABS: Anion Gap 10 (5-15); BUN 11 mg/dL (7-18); BUN/Creat Ratio 16.7 RATIO (10-20); Chloride 99 mmol/L (98-107); Creatinine, Serum 0.66 mg/dL (0.55-1.02); EST Glomerular Filtration Rate 100 mL/min (>60); Est Glom Filt Rate - Afr Amer 121 mL/min (>60); Estimated Creatinine Clearance 79.76 ml/min; Glucose 264 mg/dL (74-106); Potassium 3.5 mmol/L (3.5-5.1); Sodium Level 138 mmol/L (136-145)
[2021-12-05 07:06] LABS: Bedside Glucose 264 mg/dL (70-110)
[2021-12-05 07:19] LABS: Eosinophil 1 % (0-5); Lymphocyte 21 % (19-41); Metamyelocyte 3 % (0-1); Monocyte 13 % (0-10); Neutrophil-Band 2 % (0-5); Neutrophil-Segmented 60 % (47-70); Total Cells Counted 100 (MANUAL DIFF)
[2021-12-05 07:20] LABS: Platelet Estimate ADEQUATE (ADEQ); Red Cell Morphology NORM C+C NORMAL (NORM C&C)
[2021-12-05] MEDS: Enoxaparin 30 MG/0.3 ML Syringe SC (09:15)
[2021-12-05] MEDS: Doxycycline 100 MG CAPSULE PO ×2 (09:15→21:13)
[2021-12-05] MEDS: guaiFENesin 600 MG Tablet PO (09:15)
[2021-12-05] MEDS: Acetaminophen 325 MG Tablet 650 MG PO ×2 (09:15→17:13)
--- NOTE | 2021-12-05 09:38 | CT_ITS ---
STUDY: CT SOFT TISSUE NECK WITH CONTRAST REASON FOR EXAM: Female, 51 years old. severe pharyngitis RADIATION DOSAGE (If Supplied By Facility): CTDIvol = ( 17.39 ) mGy, DLP = ( 534.52 ) mGycm TECHNIQUE: The patient was scanned in a multi-detector CT scanner. High resolution transaxial imaging was performed following intravenous administration of IV 75mL Isovue-370. Sagittal and coronal images were reconstructed. Individualized dose optimization techniques were used for this CT. COMPARISON: None. FINDINGS: Normal bilateral parotid glands. Normal bilateral senior commissions analyst spaces. Normal bilateral parapharyngeal spaces. Normal bilateral carotid spaces. Normal bilateral sublingual and submandibular glands and spaces. Normal visualized nasopharynx. Normal retropharyngeal space. Normal perivertebral space. Normal visualized bilateral faucial tonsils. The visualized tongue, tongue base and oropharynx are normal. The visualized cervical lymph nodes (levels I-) are within normal size limits, and maintain normal morphology. There is no demonstrated solid or cystic mass lesion. There is no abnormal contrast enhancement. Normal epiglottis, bilateral vallecula and hypopharynx. The pre-epiglottic and paraglottic adipose spaces are normal. Normal visualized bilateral piriform sinuses, aryepiglottic folds, vocal cords, and arytenoid-cricoid articulations. Normal subglottic trachea. Multiple nodules of decreased attenuation and/or enhancement within the thyroid gland including a 1.8 cm nodule in the left lobe. Correlation with thyroid ultrasound is recommended. Patchy groundglass opacities in the apices the lungs consistent with subsegmental atelectasis or pneumonitis. Normal visualized paranasal sinuses. Normal visualized cervical spine. CT/Soft Tissue Neck WITH Contrast IMPRESSION: 1. Normal enhanced CT examination of the soft tissues of the neck. 2. Multiple thyroid nodules in correlation with thyroid ultrasound is recommended. 3. Suspect bilateral subsegmental atelectasis or pneumonitis, possibly Covid 19 pneumonia. Electronically Signed: Alexsander Simmons MD at 11:50 EST Tel , Service support ,
[2021-12-05 11:35] LABS: Bedside Glucose 256 mg/dL (70-110)
[2021-12-05 13:56] LABS: Absolute Neutrophil Count 4.1 X10^3/uL (2.0-7.7); Neutrophil # 4.09 X10^3/uL (2.7-7.7)
[2021-12-05 13:57] LABS: Absolute Lymphocyte Count 1.38 X10^3/uL (0.83-4.51); Lymphocyte # 1.38 X10^3/ul (0.83-4.51)
--- NOTE | 2021-12-05 14:53 | PCM.PN.HOSP ---
Subjective Subjective P.o. intake has still been extremely poor as she states it still feels like she is swallowing razor blades. She indicates she talked to relative who is a nurse in [facility] and told her that with omicron they are seeing herpetic infections and she would like to try valacyclovir. We are unfortunately unable to supply valacyclovir but we can dose acyclovir and she was receptive to that. None of the the other remedies we have tried have helped her significantly. I discussed with her that unfortunately I cannot send her home until she can take p.o. intake adequately with her diabetes and she agrees. She struggles to even obtain liquids Objective Data Objective Data Vital Signs: Vital Signs Temp Pulse Resp BP Pulse Ox 96.2 F L 91 18 144/78 H 99 12/05/21 14:25 12/05/21 14:25 12/05/21 14:25 12/05/21 14:25 12/05/21 14:25 Oxygen Flow Rate (L/min) 1 Oxygen Delivery Method Room Air Weight: 78.8 kg Body Mass Index (BMI) 30.9 Intake & Output: Intake and Output for Last 24 Hours 12/03/21 12/04/21 12/05/21 23:59 23:59 23:59 Intake Total 360 / 720 3013.3333 / 3013.3333 1220 / 1220 Output Total 300 / 300 300 / 300 Balance 60 / 420 3013.3333 / 3013.3333 920 / 920 Lab / Micro Data Result Diagrams: 12/05/21 05:16 12/05/21 05:16 Labs: Laboratory Results - last 24 hr 12/04/21 16:55: POC Glucose 260 H 12/04/21 21:31: POC Glucose 277 H 12/05/21 05:16: Sodium 138, Potassium 3.5, Chloride 99, Carbon Dioxide 29.0, Anion Gap 10, BUN 11, Creatinine 0.66, Estim Creat Clear Calc 79.76, Est GFR (MDRD) Af Amer 121, Est GFR (MDRD) Non-Af 100, BUN/Creatinine Ratio 16.7, Glucose 264 H, Calcium 8.0 L 12/05/21 05:16: WBC 6.6, RBC 4.56, Hgb 12.7, Hct 38.3, MCV 84.0 D, MCH 27.9, MCHC 33.2 D, RDW Std Deviation 41.9, RDW Coeff of Jacquelin 13.6, Plt Count 295, MPV 9.6, Neut % (Auto) Not Reportable, Absolute Neuts (auto) 4.1, Absolute Lymphs (auto) 1.38, Total Counted 100, Neutrophils % (Manual) 60, Band Neutrophils % 2, Lymphocytes % (Manual) 21, Monocytes % (Manual) 13 H, Eosinophils % (Manual) 1, Metamyelocytes % 3 H, Diff Path Review March, Platelet Estimate ADEQUATE, RBC Morphology NORM C+C 12/05/21 06:47: POC Glucose 264 H 12/05/21 11:25: POC Glucose 256 H Micro: Microbiology 12/02/21 13:30 Mucosa - Throat Throat Culture - Final Staphylococcus aureus 12/02/21 13:30 Mucosa - Throat Group A Streptococcus Rapid Screen - Final 11/29/21 22:50 Interface Orders SARS-CoV-2 Antigen (Rapid) - Final SARS-CoV-2 (COVID 19) Radiography Diagnostic Testing: Radiology Impression Soft Tissue Neck CT 12/05/21 09:38 IMPRESSION: 1. Normal enhanced CT examination of the soft tissues of the neck. 2. Multiple thyroid nodules in correlation with thyroid ultrasound is recommended. 3. Suspect bilateral subsegmental atelectasis or pneumonitis, possibly Covid 19 pneumonia. Electronically Signed: Alexsander Simmons MD at 11:50 EST Tel , Service support , Rhythm Strip Rhythm Strip: Sinus Rhythm Rate: 98 Ectopy: None Physical Exam Const alert, oriented x3 and no apparent distress Constitutional Narrative: Obese middle-aged white female sitting up in a chair at the bedside, watching television, appears overall well, remains on on room air Exam Limitations: no limitations Nutritional Appearance: obese HEENT head/scalp atraumatic, moist oral mucous membranes and oropharynx normal HEENT Narrative: Posterior oropharynx with ulcerations from the very end of the hard palate into the soft palate and bilateral tonsillar regions-I am unable to see past this mild white exudate with surrounding erythema at the ulcerations Head and Scalp: normocephalic Resp normal respiratory effort, no retractions, no use of accessory muscles and clear to auscultation bilaterally Auscultation: Negative for crackles, rales, rhonchi or wheezes Cardio regular rate, regular rhythm, S1 normal heart sound, S2 normal heart sound, no murmurs, no rub, no gallops, no clicks and no JVD GI normal to inspection, nondistended, normoactive bowel sounds, soft to palpation, non-tender and non-distended Extremity normal to inspection and no clubbing, cyanosis or edema Peripheral Pulses: Yes pulses 2+ throughout Neuro oriented x3, moves all extremities and no focal motor deficits Sensorium / Orientation: awake and alert Speech: speech normal Assessment & Plan Assessment/Plan (1) Hypokalemia: (2) COVID-19 virus infection: (3) RUTH (acute kidney injury): (4) Metabolic acidosis: (5) Hypophosphatemia: (6) Pharyngitis: PLAN: DKA -Resolved DM-1 -Fasting sugars are much improved we will decrease patient to home 15 units of basal insulin -P.o. intake remains extremely poor -Continue sliding scale -Carb controlled diet -Hemoglobin A1c is 10.9 on 11/29/2021 Acute COVID-19 infection -Suspect this is the etiology for her nausea and intermittent vomiting -Patient's renal function remained stable off IV fluids -Patient remains on RA and does not need O2 with ambulation -If she clinically improves with swallowing we may be able to discharge her to receive monoclonal antibodies if she remains off supplemental oxygen -Patient is nonvaccinated Pharyngitis -Rapid strep negative -Throat culture with staph aureus--> continue doxycycline -Continue Tessalon Perles -IV Diflucan x1 dose given -Continue nystatin -Viscous lidocaine -Increased pain with Carafate therefore will discontinue -ENT evaluated the patient on 12/04/2021 and unfortunately no scope was obtained -Patient states she was told it would not be helpful and therefore deferred -Unfortunately this is what is holding up her discharge as she is not able to manage enough p.o. intake and she is a type I diabetic Hypokalemia -Resolved Hypophosphatemia -Resolved Low back pain -Currently not an issue DVT prophylaxis -Continue enoxaparin 30 mg daily CODE STATUS -full code Charges/Coding Visit Charges Inpatient E&M: 26393 Subs Hosp L2
[2021-12-05 16:40] LABS: Bedside Glucose 342 mg/dL (70-110)
[2021-12-05] MEDS: NYSTATIN 500,000 UNIT/5 ML UDC 500000 UNIT PO ×2 (17:17→21:14)
[2021-12-05] MEDS: Phenol/Sodium Phenolate 180ML 3 SPRAY MUCOUS MEM (21:26)
[2021-12-05 22:50] LABS: Bedside Glucose 460 mg/dL (70-110)
[2021-12-05] MEDS: Insulin Lispro 100 UNIT/ML INSULN.PEN 8 UNIT SC (23:35)
[2021-12-06] VITALS (9 sets, daily range): BP systolic 105–110; BP diastolic 60–67; PULSE 84–99; RESP 14–16; TEMP 36.6–36.8; O2SAT 96–99
[2021-12-06] MEDS: Acetaminophen 325 MG Tablet 650 MG PO ×4 (01:40→21:39)
[2021-12-06 05:41] LABS: Anion Gap 22 (5-15); BUN 15 mg/dL (7-18); BUN/Creat Ratio 18.5 RATIO (10-20); Calcium,Total 8.7 mg/dL (8.5-10.1); Chloride 97 mmol/L (98-107); Creatinine, Serum 0.81 mg/dL (0.55-1.02); EST Glomerular Filtration Rate 79 mL/min (>60); Est Glom Filt Rate - Afr Amer 96 mL/min (>60); Estimated Creatinine Clearance 64.99 ml/min; Glucose 361 mg/dL (74-106); Potassium 3.7 mmol/L (3.5-5.1); Sodium Level 132 mmol/L (136-145)
[2021-12-06] MEDS: Benzonatate 100 MG Capsule PO ×3 (06:00→21:38)
[2021-12-06] MEDS: Phenol/Sodium Phenolate 180ML 3 SPRAY MUCOUS MEM ×3 (06:02→14:37)
[2021-12-06] MEDS: Insulin Lispro 100 UNIT/ML INSULN.PEN SC ×3 (06:50→17:47)
[2021-12-06 06:55] LABS: Bedside Glucose 429 mg/dL (70-110)
[2021-12-06] MEDS: Doxycycline 100 MG CAPSULE PO ×2 (08:38→21:39)
[2021-12-06] MEDS: BENZOCAINE/MENTHOL 1 LOZENGE MUCOUS MEM (08:38)
[2021-12-06] MEDS: NYSTATIN 500,000 UNIT/5 ML UDC 500000 UNIT PO ×4 (08:39→21:39)
[2021-12-06] MEDS: Enoxaparin 30 MG/0.3 ML Syringe SC (08:39)
[2021-12-06] MEDS: Glucerna Shake 120 ML LIQUID PO ×3 (09:00→17:46)
[2021-12-06 12:21] LABS: Bedside Glucose 347 mg/dL (70-110)
--- NOTE | 2021-12-06 12:25 | PCM.PN.HOSP ---
Subjective Subjective Patient is a 51-year-old lady with history of diabetes mellitus type 1 presented with shortness of breath. Diagnosed with acute COVID-19 infection in addition to diabetic ketoacidosis Objective Data Objective Data Vital Signs: Vital Signs Temp Pulse Resp BP Pulse Ox 98.2 F 96 14 105/60 99 12/06/21 10:37 12/06/21 10:37 12/06/21 10:37 12/06/21 10:37 12/06/21 10:37 Oxygen Flow Rate (L/min) 1 Oxygen Delivery Method Room Air Weight: 78.4 kg Body Mass Index (BMI) 30.9 Intake & Output: Intake and Output for Last 24 Hours 12/04/21 12/05/21 12/06/21 23:59 23:59 23:59 Intake Total 3013.3333 / 3013.3333 2226.8 / 2226.8 358 / 358 Output Total 300 / 300 Balance 3013.3333 / 3013.3333 1926.8 / 1926.8 358 / 358 Lab / Micro Data Result Diagrams: 12/05/21 05:16 12/06/21 04:13 Labs: Laboratory Results - last 24 hr 12/05/21 05:16: Absolute Neuts (auto) 4.1, Absolute Lymphs (auto) 1.38 12/05/21 16:35: POC Glucose 342 H 12/05/21 22:37: POC Glucose 460 H* 12/06/21 04:13: Sodium 132 L, Potassium 3.7, Chloride 97 L, Carbon Dioxide 13.0 L, Anion Gap 22 H, BUN 15, Creatinine 0.81, Estim Creat Clear Calc 64.99, Est GFR (MDRD) Af Amer 96, Est GFR (MDRD) Non-Af 79, BUN/Creatinine Ratio 18.5, Glucose 361 H, Calcium 8.7 12/06/21 06:46: POC Glucose 429 H 12/06/21 12:08: POC Glucose 347 H Micro: Microbiology 12/02/21 13:30 Mucosa - Throat Throat Culture - Final Staphylococcus aureus 12/02/21 13:30 Mucosa - Throat Group A Streptococcus Rapid Screen - Final 11/29/21 22:50 Interface Orders SARS-CoV-2 Antigen (Rapid) - Final SARS-CoV-2 (COVID 19) Rhythm Strip Rhythm Strip: Sinus Rhythm Rate: 98 Ectopy: None Physical Exam Narrative GENERAL: cooperative HEENT: Atraumatic; EYES; Anicteric, Normal Conjunctiva NECK; supple, normal thyroid, RESPIRATORY: Diminished to auscultation CARDIOVASCULAR: Regular S1 S2, GI: soft, normoactive bowel sounds, : No Renal angle tenderness; EXTREMITIES: No edema, no clubbing, MUSCULOSKELETAL: no muscle waisting NEURO: Awake; no lateralizing signs. SKIN: No Rash PSYCH; Flat affect Assessment & Plan Assessment/Plan (1) Hypokalemia: (2) COVID-19 virus infection: (3) RUTH (acute kidney injury): (4) Metabolic acidosis: (5) Hypophosphatemia: (6) Pharyngitis: PLAN: Patient is a 51-year-old lady with history of diabetes mellitus type 1 presented with shortness of breath. Diagnosed with acute COVID-19 infection in addition to diabetic ketoacidosis 1. Diabetic ketoacidosis Managed per Protocol with systemic insulin and IV fluid as well as correction of electrolytes. Patient DKA has since resolved however still has significant hyperglycemia and is acidotic with CO2 of 13 2. Diabetes mellitus type 1 ? Presented with DKA management as described above. Blood glucose levels still remain uncontrolled with significant hyperglycemia. Adjustment made to her insulin regimen 3. Acute COVID 19 infection ? Patient remains on room air 4. pharyngitis ? Strep cultures came back positive for staph aureus management doxycycline 5. Hyponatremia ? Secondary to pseudohyponatremia from the patient hyperglycemia do expect improvement with aggressive management of patient blood glucose levels 6. Metabolic acidosis - with CO2 of 13 on IV fluid with subsequent monitoring of electrolyte 7. DVT prophylaxis ?-Continue enoxaparin 30 mg daily CODE STATUS -full code Charges/Coding Visit Charges Inpatient E&M: 20091 [facility] Hosp L3
[2021-12-06 13:50] LABS: Pathologist Review Reviewed
[2021-12-06] MEDS: 0.9% Saline Lock 10 ML Syringe IV (14:38)
[2021-12-06 20:30] LABS: Bedside Glucose 369 mg/dL (70-110)
[2021-12-06 22:01] LABS: Bedside Glucose 254 mg/dL (70-110)
[2021-12-07] VITALS (8 sets, daily range): BP systolic 100–137; BP diastolic 61–73; PULSE 83–109; RESP 16–20; TEMP 36.3–37.1; O2SAT 98–100
[2021-12-07 05:22] LABS: Hematocrit 34.3 % (37-47); Hemoglobin 11.8 g/dL (12.0-15.0); Mean Corp Hgb Conc 34.4 g/dL (32-36); Mean Corpuscular Hgb 28.6 pg (27.0-32.0); Mean Corpuscular Volume 83.1 fL (81-99); Mean Platelet Vol. 9.3 fl (6.2-12.0); POSITIVE COUNT YES; POSITIVE MORPHOLOGY YES; Platelet Count 317 K/mm3 (150-450); RBC Distribution Width CV 13.6 % (11.6-14.6); RBC Distribution Width SD 40.9 fl (35.1-43.9); Red Blood Count 4.13 M/mm3 (4.2-5.4); White Blood Count 6.2 K/mm3 (4.4-11.0)
[2021-12-07 05:25] LABS: Differential Indicated MANUAL DIFF
[2021-12-07 05:44] LABS: Absolute Lymphocyte Count 1.49 X10^3/uL (0.83-4.51); Absolute Neutrophil Count 3.7 X10^3/uL (2.0-7.7); Anion Gap 18 (5-15); BUN 14 mg/dL (7-18); BUN/Creat Ratio 15.4 RATIO (10-20); Calcium,Total 8.2 mg/dL (8.5-10.1); Chloride 100 mmol/L (98-107); Creatinine, Serum 0.91 mg/dL (0.55-1.02); EST Glomerular Filtration Rate 69 mL/min (>60); Est Glom Filt Rate - Afr Amer 83 mL/min (>60); Estimated Creatinine Clearance 57.85 ml/min; Glucose 356 mg/dL (74-106); Neutrophil-Band 13 % (0-5); Neutrophil-Segmented 47 % (47-70); Potassium 3.9 mmol/L (3.5-5.1); Sodium Level 133 mmol/L (136-145); Total Cells Counted 100 (MANUAL DIFF)
[2021-12-07 05:45] LABS: Eosinophil 1 % (0-5); Lymphocyte 24 % (19-41); Monocyte 11 % (0-10); Myelocyte 4 % (0-0); Platelet Estimate ADEQUATE (ADEQ); Red Cell Morphology NORM C+C NORMAL (NORM C&C)
[2021-12-07] MEDS: Benzonatate 100 MG Capsule PO ×3 (06:10→22:35)
[2021-12-07] MEDS: Insulin Lispro 100 UNIT/ML INSULN.PEN SC ×3 (06:11→17:10)
[2021-12-07] MEDS: Acetaminophen 325 MG Tablet 650 MG PO ×2 (06:11→22:35)
[2021-12-07 06:21] LABS: Bedside Glucose 379 mg/dL (70-110)
--- NOTE | 2021-12-07 07:34 | PN.HOSP_ITS ---
Subjective Subjective Patient seen overall glucose control improving. Has increased anion gap as well as metabolic acidosis. Currently being managed with IV fluids. Plan to discharge patient home placed on hold Objective Data Objective Data Vital Signs: Vital Signs Temp Pulse Resp BP Pulse Ox 97.9 F 95 17 119/67 99 12/07/21 06:07 12/07/21 06:07 12/07/21 06:07 12/07/21 06:07 12/07/21 06:07 Oxygen Flow Rate (L/min) 1 Oxygen Delivery Method Room Air Weight: 77.5 kg Body Mass Index (BMI) 30.9 Intake & Output: Intake and Output for Last 24 Hours 12/05/21 12/06/21 12/07/21 23:59 23:59 23:59 Intake Total 2226.8 / 2226.8 2229 / 2229 971.33 / 971.33 Output Total 300 / 300 Balance 1926.8 / 1926.8 2229 / 2229 971.33 / 971.33 Lab / Micro Data Result Diagrams: 12/07/21 04:27 12/07/21 04:27 Labs: Laboratory Results - last 24 hr 12/05/21 05:16: Diff Path Review Reviewed 12/06/21 12:08: POC Glucose 347 H 12/06/21 17:42: POC Glucose 369 H 12/06/21 21:36: POC Glucose 254 H 12/07/21 04:27: WBC 6.2, RBC 4.13 L, Hgb 11.8 L, Hct 34.3 L, MCV 83.1, MCH 28.6, MCHC 34.4, RDW Std Deviation 40.9, RDW Coeff of Jacquelin 13.6, Plt Count 317, MPV 9.3, Neut % (Auto) Not Reportable, Absolute Neuts (auto) 3.7, Absolute Lymphs (auto) 1.49, Total Counted 100, Neutrophils % (Manual) 47, Band Neutrophils % 13 H, Lymphocytes % (Manual) 24, Monocytes % (Manual) 11 H, Eosinophils % (Manual) 1, Myelocytes % 4 H, Diff Path Review May , Platelet Estimate ADEQUATE, RBC Morphology NORM C+C 12/07/21 04:27: Sodium 133 L, Potassium 3.9, Chloride 100, Carbon Dioxide 15.0 L , Anion Gap 18 H, BUN 14, Creatinine 0.91, Estim Creat Clear Calc 57.85, Est GFR (MDRD) Af Amer 83, Est GFR (MDRD) Non-Af 69, BUN/Creatinine Ratio 15.4, Glucose 356 H, Calcium 8.2 L, Magnesium 2.0 12/07/21 06:04: POC Glucose 379 H Micro: Microbiology 12/02/21 13:30 Mucosa - Throat Throat Culture - Final Staphylococcus aureus 12/02/21 13:30 Mucosa - Throat Group A Streptococcus Rapid Screen - Final 11/29/21 22:50 Interface Orders SARS-CoV-2 Antigen (Rapid) - Final SARS-CoV-2 (COVID 19) Rhythm Strip Rhythm Strip: Sinus Rhythm Rate: 98 Ectopy: None Physical Exam Narrative GENERAL: cooperative HEENT: Atraumatic; EYES; Anicteric, Normal Conjunctiva NECK; supple, normal thyroid, RESPIRATORY: Diminished to auscultation CARDIOVASCULAR: Regular S1 S2, GI: soft, normoactive bowel sounds, : No Renal angle tenderness; EXTREMITIES: No edema, no clubbing, MUSCULOSKELETAL: no muscle waisting NEURO: Awake; no lateralizing signs. SKIN: No Rash PSYCH; Flat affect Assessment & Plan Assessment/Plan (1) Hypokalemia: (2) COVID-19 virus infection: (3) RUTH (acute kidney injury): (4) Metabolic acidosis: (5) Hypophosphatemia: (6) Pharyngitis: PLAN: Patient is a 51-year-old lady with history of diabetes mellitus type 1 presented with shortness of breath. Diagnosed with acute COVID-19 infection in addition to diabetic ketoacidosis 1. Diabetic ketoacidosis Managed per Protocol with systemic insulin and IV fluid as well as correction of electrolytes. Patient DKA has since resolved however still has significant hyperglycemia and is acidotic with CO2 of 13 -12/07/2021 patient anion gap and acidosis increasing plan to discharge patient placed on hold 2. Diabetes mellitus type 1 ? Presented with DKA management as described above. Blood glucose levels still remain uncontrolled with significant hyperglycemia. Adjustment made to her insulin regimen 3. Acute COVID 19 infection ? Patient remains on room air 4. Pharyngitis ? Throat cultures came back positive for staph aureus management doxycycline 5. Hyponatremia ? Secondary to pseudohyponatremia from the patient hyperglycemia do expect improvement with aggressive management of patient blood glucose levels 6. Metabolic acidosis - with CO2 of 13 on IV fluid with subsequent monitoring of electrolyte -On 1122. Patient metabolic acidosis persisted adjust patient IV fluids 7. DVT prophylaxis ?-Continue enoxaparin 30 mg daily CODE STATUS -full code Charges/Coding Visit Charges Inpatient E&M: 39882 Subs Hosp L3
[2021-12-07] MEDS: Enoxaparin 30 MG/0.3 ML Syringe SC (09:16)
[2021-12-07] MEDS: 0.9% Saline Lock 10 ML Syringe IV ×2 (09:20→11:41)
[2021-12-07] MEDS: Ondansetron 4 MG/2 ML Vial IV (09:20)
[2021-12-07] MEDS: Insulin Lispro 100 UNIT/ML INSULN.PEN 15 UNIT SC ×2 (11:36→17:10)
[2021-12-07] MEDS: proCHLORPERazine 10 MG/2 ML Vial 5 MG IV (11:41)
[2021-12-07 11:50] LABS: Bedside Glucose 471 mg/dL (70-110)
[2021-12-07 12:35] LABS: Bedside Glucose 385 mg/dL (70-110)
[2021-12-07 14:40] LABS: Anion Gap 17 (5-15); BUN 18 mg/dL (7-18); BUN/Creat Ratio 16.2 RATIO (10-20); Calcium,Total 8.4 mg/dL (8.5-10.1); Chloride 103 mmol/L (98-107); Creatinine, Serum 1.11 mg/dL (0.55-1.02); EST Glomerular Filtration Rate 55 mL/min (>60); Est Glom Filt Rate - Afr Amer 67 mL/min (>60); Estimated Creatinine Clearance 47.42 ml/min; Glucose 365 mg/dL (74-106); Potassium 4.1 mmol/L (3.5-5.1); Sodium Level 133 mmol/L (136-145)
[2021-12-07 14:55] LABS: Bedside Glucose 304 mg/dL (70-110)
[2021-12-07 16:46] LABS: Anion Gap 15 (5-15); BUN 17 mg/dL (7-18); Calcium,Total 8.7 mg/dL (8.5-10.1); Chloride 103 mmol/L (98-107); Creatinine, Serum 1.13 mg/dL (0.55-1.02); EST Glomerular Filtration Rate 54 mL/min (>60); Est Glom Filt Rate - Afr Amer 65 mL/min (>60); Estimated Creatinine Clearance 46.58 ml/min; Glucose 330 mg/dL (74-106); Sodium Level 134 mmol/L (136-145)
[2021-12-07 17:20] LABS: Bedside Glucose 291 mg/dL (70-110)
[2021-12-07 20:20] LABS: Anion Gap 8 (5-15); BUN 15 mg/dL (7-18); BUN/Creat Ratio 14.4 RATIO (10-20); Calcium,Total 8.2 mg/dL (8.5-10.1); Chloride 107 mmol/L (98-107); Creatinine, Serum 1.04 mg/dL (0.55-1.02); EST Glomerular Filtration Rate 59 mL/min (>60); Est Glom Filt Rate - Afr Amer 72 mL/min (>60); Estimated Creatinine Clearance 50.62 ml/min; Glucose 218 mg/dL (74-106); Sodium Level 135 mmol/L (136-145)
[2021-12-07] MEDS: Phenol/Sodium Phenolate 180ML 3 SPRAY MUCOUS MEM (22:35)
[2021-12-07 22:46] LABS: Bedside Glucose 176 mg/dL (70-110)
[2021-12-08 00:42] LABS: Anion Gap 9 (5-15); BUN 14 mg/dL (7-18); BUN/Creat Ratio 14.1 RATIO (10-20); Calcium,Total 8.3 mg/dL (8.5-10.1); Chloride 105 mmol/L (98-107); Creatinine, Serum 0.99 mg/dL (0.55-1.02); EST Glomerular Filtration Rate 63 mL/min (>60); Est Glom Filt Rate - Afr Amer 76 mL/min (>60); Estimated Creatinine Clearance 53.17 ml/min; Glucose 164 mg/dL (74-106); Potassium 3.8 mmol/L (3.5-5.1); Sodium Level 136 mmol/L (136-145)
[2021-12-08 03:00] VITALS: PULSE 81
[2021-12-08 03:50] VITALS: BP 114/67; PULSE 83; RESP 16; TEMP 36.6; O2SAT 97
[2021-12-08 04:30] LABS: Absolute Lymphocyte Count 1.51 X10^3/uL (0.83-4.51); Absolute Neutrophil Count 3.1 X10^3/uL (2.0-7.7); Basophil# 0.04 X10^3/uL; Basophil% 0.7 % (0-1); Eosinophil# 0.06 X10^3/uL; Eosinophils% 1.1 % (0-5); Hematocrit 33.1 % (37-47); Hemoglobin 11.1 g/dL (12.0-15.0); Lymphocyte # 1.51 X10^3/ul (0.83-4.51); Lymphocyte % 26.6 % (19-41); Mean Corp Hgb Conc 33.5 g/dL (32-36); Mean Corpuscular Hgb 27.8 pg (27.0-32.0); Mean Corpuscular Volume 82.8 fL (81-99); Mean Platelet Vol. 9.4 fl (6.2-12.0); Monocyte% 12.3 % (0-10); NRBC Flagged by Analyzer 0 % (0-5); Neutrophil # 3.11 X10^3/uL (2.7-7.7); Neutrophil % 54.7 % (47-70); Platelet Count 325 K/mm3 (150-450); RBC Distribution Width CV 13.3 % (11.6-14.6); RBC Distribution Width SD 40.2 fl (35.1-43.9); White Blood Count 5.7 K/mm3 (4.4-11.0)
[2021-12-08 04:57] LABS: Anion Gap 8 (5-15); BUN 11 mg/dL (7-18); BUN/Creat Ratio 12.3 RATIO (10-20); Calcium,Total 8.3 mg/dL (8.5-10.1); Chloride 107 mmol/L (98-107); EST Glomerular Filtration Rate 71 mL/min (>60); Est Glom Filt Rate - Afr Amer 85 mL/min (>60); Estimated Creatinine Clearance 58.49 ml/min; Glucose 101 mg/dL (74-106); Potassium 3.9 mmol/L (3.5-5.1); Sodium Level 137 mmol/L (136-145)
[2021-12-08] MEDS: Benzonatate 100 MG Capsule PO ×2 (05:55→12:56)
[2021-12-08 06:35] VITALS: PULSE 103
--- NOTE | 2021-12-08 08:01 | PN.HOSP_ITS ---
Subjective Subjective Patient seen glucose control improved anion gap closed and metabolic acidosis resolved. We will attempt to discharge patient home Objective Data Objective Data Vital Signs: Vital Signs Temp Pulse Resp BP Pulse Ox 97.9 F 103 H 16 114/67 97 12/08/21 03:50 12/08/21 06:35 12/08/21 03:50 12/08/21 03:50 12/08/21 03:50 Oxygen Flow Rate (L/min) 1 Oxygen Delivery Method Room Air Weight: 78.6 kg Body Mass Index (BMI) 30.9 Intake & Output: Intake and Output for Last 24 Hours 12/06/21 12/07/21 12/08/21 23:59 23:59 23:59 Intake Total 2229 / 2229 4394.00 / 4394.00 1758.00 / 1758.00 Balance 2229 / 2229 4394.00 / 4394.00 1758.00 / 1758.00 Lab / Micro Data Result Diagrams: 12/08/21 03:40 12/08/21 07:57 Labs: Laboratory Results - last 24 hr 12/07/21 11:33: POC Glucose 471 H* 12/07/21 12:29: POC Glucose 385 H 12/07/21 14:00: Sodium 133 L, Potassium 4.1, Chloride 103, Carbon Dioxide 13.0 L , Anion Gap 17 H, BUN 18, Creatinine 1.11 H, Estim Creat Clear Calc 47.42, Est GFR (MDRD) Af Amer 67, Est GFR (MDRD) Non-Af 55 L, BUN/Creatinine Ratio 16.2, Glucose 365 H, Calcium 8.4 L 12/07/21 14:48: POC Glucose 304 H 12/07/21 16:10: Sodium 134 L, Potassium 4.0, Chloride 103, Carbon Dioxide 16.0 L , Anion Gap 15, BUN 17, Creatinine 1.13 H, Estim Creat Clear Calc 46.58, Est GFR (MDRD) Af Amer 65, Est GFR (MDRD) Non-Af 54 L, BUN/Creatinine Ratio 15.0, Glucose 330 H, Calcium 8.7 12/07/21 17:04: POC Glucose 291 H 12/07/21 19:45: Sodium 135 L, Potassium 4.0, Chloride 107, Carbon Dioxide 20.0 L , Anion Gap 8, BUN 15, Creatinine 1.04 H, Estim Creat Clear Calc 50.62, Est GFR (MDRD) Af Amer 72, Est GFR (MDRD) Non-Af 59 L, BUN/Creatinine Ratio 14.4, Glucose 218 H, Calcium 8.2 L 12/07/21 22:29: POC Glucose 176 H 12/08/21 00:15: Sodium 136, Potassium 3.8, Chloride 105, Carbon Dioxide 22.0, A nion Gap 9, BUN 14, Creatinine 0.99, Estim Creat Clear Calc 53.17, Est GFR (MDRD) Af Amer 76, Est GFR (MDRD) Non-Af 63, BUN/Creatinine Ratio 14.1, Glucose 164 H, Calcium 8.3 L 12/08/21 03:40: WBC 5.7, RBC 4.00 L, Hgb 11.1 L, Hct 33.1 L, MCV 82.8, MCH 27.8, MCHC 33.5, RDW Std Deviation 40.2, RDW Coeff of Jacquelin 13.3, Plt Count 325, MPV 9.4, Immature Gran % (Auto) 4.600 H, Neut % (Auto) 54.7, Lymph % (Auto) 26.6, [place] % (Auto) 12.3 H, Eos % (Auto) 1.1, Baso % (Auto) 0.7, Absolute Neuts (auto) 3.1, Absolute Lymphs (auto) 1.51, Nucleated RBC % 0 12/08/21 03:40: Sodium 137, Potassium 3.9, Chloride 107, Carbon Dioxide 22.0, Anion Gap 8, BUN 11, Creatinine 0.90, Estim Creat Clear Calc 58.49, Est GFR (MDRD) Af Amer 85, Est GFR (MDRD) Non-Af 71, BUN/Creatinine Ratio 12.3, Glucose 101, Calcium 8.3 L Micro: Microbiology 12/02/21 13:30 Mucosa - Throat Throat Culture - Final Staphylococcus aureus 12/02/21 13:30 Mucosa - Throat Group A Streptococcus Rapid Screen - Final 11/29/21 22:50 Interface Orders SARS-CoV-2 Antigen (Rapid) - Final SARS-CoV-2 (COVID 19) Rhythm Strip Rhythm Strip: Sinus Rhythm Rate: 98 Ectopy: None Physical Exam Narrative GENERAL: cooperative HEENT: Atraumatic; EYES; Anicteric, Normal Conjunctiva NECK; supple, normal thyroid, RESPIRATORY: Diminished to auscultation CARDIOVASCULAR: Regular S1 S2, GI: soft, normoactive bowel sounds, : No Renal angle tenderness; EXTREMITIES: No edema, no clubbing, MUSCULOSKELETAL: no muscle waisting NEURO: Awake; no lateralizing signs. SKIN: No Rash PSYCH; Flat affect Assessment & Plan Assessment/Plan (1) Hypokalemia: (2) COVID-19 virus infection: (3) RUTH (acute kidney injury): (4) Metabolic acidosis: (5) Hypophosphatemia: (6) Pharyngitis: PLAN: Patient is a 51-year-old lady with history of diabetes mellitus type 1 presented with shortness of breath. Diagnosed with acute COVID-19 infection in addition to diabetic ketoacidosis 1. Diabetic ketoacidosis Managed per Protocol with systemic insulin and IV fluid as well as correction of electrolytes. Patient DKA has since resolved however still has significant hyperglycemia and is acidotic with CO2 of 13 -12/07/2021 patient anion gap and acidosis increasing plan to discharge patient placed on hold -12/08/2021. Patient anion gap metabolic acidosis improved and attempt to be made to discharge patient home 2. Diabetes mellitus type 1 ? Presented with DKA management as described above. Blood glucose levels still remain uncontrolled with significant hyperglycemia. Adjustment made to her insulin regimen 3. Acute COVID 19 infection ? Patient remains on room air 4. Pharyngitis ? Throat cultures came back positive for staph aureus management doxycycline -Antiviral added to suspected herpes infection in view of ulcers found on throat examination 5. Hyponatremia ? Secondary to pseudohyponatremia from the patient hyperglycemia do expect improvement with aggressive management of patient blood glucose levels 6. Metabolic acidosis - with CO2 of 13 on IV fluid with subsequent monitoring of electrolyte -On 112. Patient metabolic acidosis persisted adjust patient IV fluids 7. DVT prophylaxis ?-Continue enoxaparin 30 mg daily CODE STATUS -full code Charges/Coding Visit Charges Inpatient E&M: 60458 Subs Hosp L2
[2021-12-08 08:30] VITALS: BP 136/83; PULSE 80; RESP 18; TEMP 37; O2SAT 97
[2021-12-08] MEDS: Enoxaparin 30 MG/0.3 ML Syringe SC (08:35)
[2021-12-08] MEDS: Insulin Lispro 100 UNIT/ML INSULN.PEN 15 UNIT SC (08:36)
[2021-12-08 08:42] LABS: Anion Gap 7 (5-15); BUN 11 mg/dL (7-18); BUN/Creat Ratio 13.2 RATIO (10-20); Calcium,Total 8.4 mg/dL (8.5-10.1); Chloride 107 mmol/L (98-107); Creatinine, Serum 0.83 mg/dL (0.55-1.02); EST Glomerular Filtration Rate 76 mL/min (>60); Est Glom Filt Rate - Afr Amer 93 mL/min (>60); Estimated Creatinine Clearance 63.42 ml/min; Glucose 133 mg/dL (74-106); Potassium 3.7 mmol/L (3.5-5.1); Sodium Level 136 mmol/L (136-145)
[2021-12-08 08:45] LABS: Bedside Glucose 121 mg/dL (70-110)
[2021-12-08 09:59] LABS: Pathologist Review Reviewed
[2021-12-08] MEDS: Acetaminophen 325 MG Tablet 650 MG PO (11:21)
[2021-12-08 11:31] LABS: Bedside Glucose 78 mg/dL (70-110)
[2021-12-08 11:56] VITALS: O2SAT 97
--- NOTE | 2021-12-08 12:23 | DS.PCM_ITS ---
Providers Date of Admission: 11/29/21 Primary Care Physician: Dr. Thomas Rhoades DO Consultations 12/04/21 10:30 Consult: ENT Routine Consulting Provider: Marvin Llanes Reason for Consult: pharyngitis EMERGENT Consult: No MD Notified: Yes Date Notified: 12/04/21 Time Notified: 10:31 Method of Notification: Verbal Reason For Visit: DKA Diagnosis Discharge Diagnosis (1) Hypokalemia: Status: Acute Code(s): E87.6 - Hypokalemia (2) COVID-19 virus infection: Status: Acute Code(s): U07.1 - COVID-19 (3) RUTH (acute kidney injury): Status: Acute Code(s): N17.9 - Acute kidney failure, unspecified (4) Metabolic acidosis: Status: Acute Code(s): E87.2 - Acidosis (5) Hypophosphatemia: Status: Acute Code(s): E83.39 - Other disorders of phosphorus metabolism (6) Pharyngitis: Status: Acute Code(s): J02.9 - Acute pharyngitis, unspecified Medications at Discharge Home Medications Lantus Solostar U-100 Insulin 20 units SQ QHS 12/25/13 meclizine 25 mg PO TID PRN PRN #20 tab 08/17/16 ondansetron 4 mg PO Q8H PRN PRN #10 tab 08/17/16 cyclobenzaprine 10 mg PO BID PRN #10 tab 11/26/21 hydrocodone-acetaminophen 1 tab PO Q6H PRN 3 Days #10 tab 11/26/21 Apidra U-100 Insulin 5 unit SQ TIDCM #0 ml 12/08/21 acetaminophen [Tylenol] 650 mg PO Q6H PRN PRN #0 tab 12/08/21 acyclovir 400 mg PO TID #20 tab 12/08/21 amlodipine 5 mg PO DAILY #60 tab 12/08/21 benzocaine-menthol [Cepacol Sore Throat (david-men)] 1 yang MUCOUS MEMBRANE Q2H PRN PRN #20 ea 12/08/21 doxycycline monohydrate 100 mg PO BID #10 cap 12/08/21 lidocaine HCl [Lidocaine Viscous] 5 ml PO Q3H PRN #100 ml 12/08/21 nystatin 500,000 unit PO 4X/DAY #300 ml 12/08/21 Hospital Course Summary of Care Provided Minutes Spent on Discharge: 35 Hospital Course: Patient is a 51-year-old lady with history of diabetes mellitus type 1 presented with shortness of breath. Diagnosed with acute COVID-19 infection in addition to diabetic ketoacidosis 1. Diabetic ketoacidosis Managed per Protocol with systemic insulin and IV fluid as well as correction of electrolytes. Patient DKA has since resolved however still has significant hyperglycemia and is acidotic with CO2 of 13 -12/07/2021 patient anion gap and acidosis increasing plan to discharge patient placed on hold -12/08/2021. Patient anion gap metabolic acidosis improved 2. Diabetes mellitus type 1 ? Presented with DKA management as described above. Blood glucose levels still remain uncontrolled with significant hyperglycemia. Adjustment made to her insulin regimen 3. Acute COVID 19 infection ? Patient remains on room air 4. Pharyngitis ? Throat cultures came back positive for staph aureus management doxycycline -Antiviral added to suspected herpes infection in view of ulcers found on throat examination -Discharged on doxycycline as well as acyclovir in addition to symptomatic remedies 5. Hyponatremia ? Secondary to pseudohyponatremia from the patient hyperglycemia do expect improvement with aggressive management of patient blood glucose levels 6. Metabolic acidosis - with CO2 of 13 on IV fluid with subsequent monitoring of electrolyte -On 1121. Patient metabolic acidosis persisted adjust patient IV fluids 7. DVT prophylaxis ?-Continue enoxaparin 30 mg daily Physical Exam Narrative GENERAL: cooperative HEENT: Atraumatic; EYES; Anicteric, Normal Conjunctiva NECK; supple, normal thyroid, RESPIRATORY: Diminished to auscultation CARDIOVASCULAR: Regular S1 S2, GI: soft, normoactive bowel sounds, : No Renal angle tenderness; EXTREMITIES: No edema, no clubbing, MUSCULOSKELETAL: no muscle waisting NEURO: Awake; no lateralizing signs. SKIN: No Rash PSYCH; Flat affect Weight / BMI Weight Weight: 78.6 kg Body Mass Index (BMI) 30.9 ABG / Lab / Microbiology Data Result Diagrams: 12/08/21 03:40 12/08/21 07:57 Laboratory: Laboratory Results - last 24 hr 12/07/21 04:27: Diff Path Review Reviewed 12/07/21 12:29: POC Glucose 385 H 12/07/21 14:00: Sodium 133 L, Potassium 4.1, Chloride 103, Carbon Dioxide 13.0 L , Anion Gap 17 H, BUN 18, Creatinine 1.11 H, Estim Creat Clear Calc 47.42, Est GFR (MDRD) Af Amer 67, Est GFR (MDRD) Non-Af 55 L, BUN/Creatinine Ratio 16.2, Glucose 365 H, Calcium 8.4 L 12/07/21 14:48: POC Glucose 304 H 12/07/21 16:10: Sodium 134 L, Potassium 4.0, Chloride 103, Carbon Dioxide 16.0 L , Anion Gap 15, BUN 17, Creatinine 1.13 H, Estim Creat Clear Calc 46.58, Est GFR (MDRD) Af Amer 65, Est GFR (MDRD) Non-Af 54 L, BUN/Creatinine Ratio 15.0, Glucose 330 H, Calcium 8.7 12/07/21 17:04: POC Glucose 291 H 12/07/21 19:45: Sodium 135 L, Potassium 4.0, Chloride 107, Carbon Dioxide 20.0 L , Anion Gap 8, BUN 15, Creatinine 1.04 H, Estim Creat Clear Calc 50.62, Est GFR (MDRD) Af Amer 72, Est GFR (MDRD) Non-Af 59 L, BUN/Creatinine Ratio 14.4, Glucose 218 H, Calcium 8.2 L 12/07/21 22:29: POC Glucose 176 H 12/08/21 00:15: Sodium 136, Potassium 3.8, Chloride 105, Carbon Dioxide 22.0, Anion Gap 9, BUN 14, Creatinine 0.99, Estim Creat Clear Calc 53.17, Est GFR (MDRD) Af Amer 76, Est GFR (MDRD) Non-Af 63, BUN/Creatinine Ratio 14.1, Glucose 164 H, Calcium 8.3 L 12/08/21 03:40: WBC 5.7, RBC 4.00 L, Hgb 11.1 L, Hct 33.1 L, MCV 82.8, MCH 27.8, MCHC 33.5, RDW Std Deviation 40.2, RDW Coeff of Jacquelin 13.3, Plt Count 325, MPV 9.4, Immature Gran % (Auto) 4.600 H, Neut % (Auto) 54.7, Lymph % (Auto) 26.6, [place] % (Auto) 12.3 H, Eos % (Auto) 1.1, Baso % (Auto) 0.7, Absolute Neuts (auto) 3.1, Absolute Lymphs (auto) 1.51, Nucleated RBC % 0 12/08/21 03:40: Sodium 137, Potassium 3.9, Chloride 107, Carbon Dioxide 22.0, Anion Gap 8, BUN 11, Creatinine 0.90, Estim Creat Clear Calc 58.49, Est GFR (MDRD) Af Amer 85, Est GFR (MDRD) Non-Af 71, BUN/Creatinine Ratio 12.3, Glucose 101, Calcium 8.3 L 12/08/21 07:57: Sodium 136, Potassium 3.7, Chloride 107, Carbon Dioxide 22.0, Anion Gap 7, BUN 11, Creatinine 0.83, Estim Creat Clear Calc 63.42, Est GFR (MDRD) Af Amer 93, Est GFR (MDRD) Non-Af 76, BUN/Creatinine Ratio 13.2, Glucose 133 H, Calcium 8.4 L 12/08/21 08:26: POC Glucose 121 H 12/08/21 11:20: POC Glucose 78 Microbiology: Microbiology 12/02/21 13:30 Mucosa - Throat Throat Culture - Final Staphylococcus aureus 12/02/21 13:30 Mucosa - Throat Group A Streptococcus Rapid Screen - Final 11/29/21 22:50 Interface Orders SARS-CoV-2 Antigen (Rapid) - Final SARS-CoV-2 (COVID 19) D/C Instructions Discharge Diet: 1800 Calorie Control Diet Discharge Activity: Return to Normal Activity Call your doctor if you observe: Fever of 101 or Higher, Shortness of breath, Fainting spells and Chest pain Meaningful Use Info Meaningful Use Diagnoses (Choose all that apply): None applicable Discharge Plan Admission Admit Date/Time: 11/29/21 23:08 Attending Provider: Varun Arce Primary Care Provider: Thomas Rhoades Consulting Providers: Marvin Llanes Discharge Orders/Prescriptions Prescriptions: New nystatin 100,000 unit/mL Suspension 500,000 unit PO 4X/DAY Qty: 300 RF: 0 acetaminophen [Tylenol] 325 mg Tablet 650 mg PO Q6H PRN PRN (Reason: Pain 1-10 Or Fever) Qty: 0 RF: 0 doxycycline monohydrate 100 mg Capsule 100 mg PO BID Qty: 10 RF: 0 lidocaine HCl [Lidocaine Viscous] 2 % Solution 5 ml PO Q3H PRN (Reason: SORE THROAT) Qty: 100 RF: 0 Cepacol Sore Throat (david-men) 15-3.6 mg Lozenge 1 yang mucous membrane Q2H PRN PRN (Reason: sore throat/cough) Qty: 20 RF: 0 acyclovir 400 mg tablet 400 mg PO TID Qty: 20 RF: 0 amlodipine 5 mg tablet 5 mg PO DAILY Qty: 60 RF: 0 Continued Lantus Solostar U-100 Insulin 100 UNITS/ML insulin pen 20 units SQ QHS RF: 0 meclizine 25 MG tablet 25 mg PO TID PRN PRN (Reason: Vertigo) Qty: 20 RF: 0 ondansetron 4 MG tablet 4 mg PO Q8H PRN PRN (Reason: Nausea) Qty: 10 RF: 0 cyclobenzaprine 10 mg tablet 10 mg PO BID PRN (Reason: muscle spasm) Qty: 10 RF: 0 hydrocodone-acetaminophen 5-325 mg tablet 1 tab PO Q6H PRN (Reason: pain) 3 Days Qty: 10 RF: 0 Changed Apidra U-100 Insulin 100 UNIT/ML solution 5 unit SQ TIDCM Qty: 0 RF: 0 Discontinued hydrochlorothiazide 25 MG tablet 25 mg PO DAILY PRN PRN (Reason: Swelling) RF: 0 Referrals / Follow Up: Thomas Rhoades DO [Primary Care Provider] - In 1 Week Disposition Disposition (needs filled in before D/C Order can be placed): Home, Self Care Charges/Coding Visit Charges Inpatient E&M: 10315 Disch Hosp
[2021-12-08 13:07] LABS: Anion Gap 5 (5-15); BUN 10 mg/dL (7-18); BUN/Creat Ratio 11.9 RATIO (10-20); Calcium,Total 8.6 mg/dL (8.5-10.1); Chloride 108 mmol/L (98-107); Creatinine, Serum 0.84 mg/dL (0.55-1.02); EST Glomerular Filtration Rate 76 mL/min (>60); Est Glom Filt Rate - Afr Amer 92 mL/min (>60); Estimated Creatinine Clearance 62.67 ml/min; Glucose 77 mg/dL (74-106); Potassium 3.5 mmol/L (3.5-5.1); Sodium Level 137 mmol/L (136-145)
--- NOTE | 2021-12-08 13:54 | PHA.DC.MR ---
Pharmacy Service has performed discharge medication reconciliation for this patient. The patient's discharge medication list was reviewed for discrepancies and discrepancies were resolved. 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 Home Medications Lantus Solostar U-100 Insulin 20 units SQ QHS 12/25/13 meclizine 25 mg PO TID PRN PRN #20 tab 08/17/16 ondansetron 4 mg PO Q8H PRN PRN #10 tab 08/17/16 cyclobenzaprine 10 mg PO BID PRN #10 tab 11/26/21 hydrocodone-acetaminophen 1 tab PO Q6H PRN 3 Days #10 tab 11/26/21 Apidra U-100 Insulin 5 unit SQ TIDCM #0 ml 12/08/21 acetaminophen [Tylenol] 650 mg PO Q6H PRN PRN #0 tab 12/08/21 acyclovir 400 mg PO TID #20 tab 12/08/21 benzocaine-menthol [Cepacol Sore Throat (david-men)] 1 ynag MUCOUS MEMBRANE Q2H PRN PRN #20 ea 12/08/21 doxycycline monohydrate 100 mg PO BID #10 cap 12/08/21 lidocaine HCl [Lidocaine Viscous] 5 ml PO Q3H PRN #100 ml 12/08/21 nystatin 500,000 unit PO 4X/DAY #300 ml 12/08/21
--- NOTE | 2021-12-08 14:16 | CASEMGMT ---
Pt has been independent in room and states no concerns with going home at time of discharge. SStmachelle KENDALL CM
== END 2021-12-08 15:25 | disposition home or self-care (01) | DRG 420 ==
LOC: ED 22:34 → ICU 23:31 → PCU 12-01 09:20
PROVIDERS: Internal Medicine; Admitting Provider Hospitalist; Emergency Provider Emergency Medicine; PCP Family Medicine; Visit Provider Internal Medicine
DX: E10.10 Type 1 diabetes mellitus with ketoacidosis without coma (principal); G93.41 Metabolic encephalopathy; U07.1 COVID-19; N17.9 Acute kidney failure, unspecified; E87.1 Hypo-osmolality and hyponatremia; I10 Essential (primary) hypertension; E87.5 Hyperkalemia; E87.6 Hypokalemia; E83.39 Other disorders of phosphorus metabolism; J02.9 Acute pharyngitis, unspecified; Z79.01 Long term (current) use of anticoagulants; Z91.19 Patient's noncompliance with other medical treatment and regimen; Z28.3 Underimmunization status; E66.9 Obesity, unspecified; M54.50 Low back pain, unspecified; Z68.30 Body mass index [BMI] 30.0-30.9, adult
CPT/HCPCS: 36415; 36569; 70491; 71045; 74018; 80048; 80076; 81001; 82009; 82803; 82962; 83036; 83735; 84100; 84145; 85025; 86308; 87070; 87077; 87186; 87426; 87880; 93005; 94760; 97110; 97116; 97162; 97166; 97530; 97535; 99285; J7030; J7040; J7050; J7120; Q9967; A4216; J2405; J7799

== ENCOUNTER 2022-02-02 20:00 | Outpatient (CLI) | payer MEDICAID, SELFPAY | END 2022-02-02 23:59 | disposition home or self-care (01) | PROVIDERS: PCP Family Medicine; Visit Provider Family Medicine | DX: G47.10 Hypersomnia, unspecified (principal) | CPT/HCPCS: 95810 ==

== ENCOUNTER → 2022-07-22 | Outpatient (CLI) | payer OTHER, MEDICAID, SELFPAY | END | disposition home or self-care (01) | LOC: SL 20:29 | PROVIDERS: PCP Family Medicine; Visit Provider Family Medicine | DX: G47.33 Obstructive sleep apnea (adult) (pediatric) (principal) | CPT/HCPCS: 95811 ==

== ENCOUNTER → 2022-08-10 | Outpatient (CLI) | payer OTHER, SELFPAY | END | disposition home or self-care (01) | LOC: SL 17:05 | PROVIDERS: PCP Family Medicine; Referring Provider Family Medicine; Visit Provider Family Medicine | DX: Z00.00 Encounter for general adult medical examination without abnormal findings (principal) ==

== ENCOUNTER → 2022-12-29 | Outpatient (CLI) | payer OTHER, SELFPAY ==
--- NOTE | 2022-12-29 16:32 | CT_ITS ---
EXAM: CT LEFT UPPER EXTREMITY WITHOUT INTRAVENOUS CONTRAST, ELBOW CLINICAL INDICATION: DISPLACED FX TECHNIQUE: Helically acquired images were obtained of the left elbow without intravenous contrast. 2-D reformats were performed by the technologist. This CT exam was performed using one or more of the following dose reduction techniques: automated exposure control, adjustment of the mA and/or kV according to patient size, and/or use of iterative reconstruction technique. This report was created using [employer] report [employer] technology. COMPARISON: None. FINDINGS: BONES/JOINTS: There is a fracture of the olecranon. There is no evidence of dislocation. No sclerotic or destructive changes. SOFT TISSUES: There is edema in the subcutaneous tissues. No radiopaque foreign body. CT/Extremity Upper without Contra IMPRESSION: Fracture of the olecranon. Electronically Signed: Ric Wallace MD at 17:35 EST ,
== END | disposition home or self-care (01) ==
PROVIDERS: PCP Family Medicine; Referring Provider Physician Assistant Surgical; Visit Provider Physician Assistant Surgical
DX: S52.022A Displaced fracture of olecranon process without intraarticular extension of left ulna, initial encounter for closed fracture (principal); M79.622 Pain in left upper arm; X58.XXXA Exposure to other specified factors, initial encounter
CPT/HCPCS: 73200

== ENCOUNTER 2022-12-31 22:14 | Emergency (ER) | payer OTHER, SELFPAY ==
[2022-12-31 22:15] VITALS: BP 123/64; PULSE 91; RESP 16; TEMP 36.4; O2SAT 99; BMI 30.2
--- NOTE | 2022-12-31 23:10 | EDS_ITS ---
HPI History of Present Illness Chief Complaint: Upper Extremity Injury Informant: patient Occured/Mechanism Mechanism/Context: Yes fall and Yes same level fall Comment: Patient has a nondisplaced comminuted left proximal humeral fracture at the surgical neck and a comminuted intra-articular fracture of the left olecranon. Patient presents because of concern for the splint. Onset/Context/Timing Onset: Days (Patient fell 4 days ago seen at outside facility) Context: Sudden Onset Timing: Continuous Quality of Pain: Dull and Aching Current Severity: Moderate Maximum Severity: Severe Worsened by: Comminuted fracture of the left proximal humerus and olecranon Relieved by: Nothing Associated Symptoms Associated Symptoms: Positive for Loss of Funtion Narrative Narrative: Patient is a 52-year-old [id number] woman. She was seen at outside facility earlier this week and was diagnosed with a comminuted nondisplaced proximal humeral fracture at the surgical neck and a comminuted intra-articular left olecranon fracture. She was seen by Dr. Steven buchanan on and had reapplication of the splint. She is in a posterior long-arm splint for immobilization. She is concerned she messed up the splint. She is complaining of pain. She is presently on oxycodone with minimal improvement. She does have history of diabetes. Reluctant to treat with NSAIDs because of her diabetes and because of studies that have shown delayed or nonunion with use of NSAIDs and elderly adults. Tetanus Immunization: 5-10 years Prior similar symptoms: Yes Recent Illness/Hospitalization: Yes [facility] Medical History Diabetes Hypertension Non-smoker Type 1 diabetes Home Medications ondansetron 4 mg disintegrating tablet 4 mg PO Q8H PRN PRN Nausea #10 tabs 08/17/16 [Rx Last Taken Unknown] cyclobenzaprine 10 mg tablet 10 mg PO BID PRN muscle spasm #10 tabs 11/26/21 [Rx Last Taken Unknown] acetaminophen 325 mg tablet (Tylenol) 650 mg PO Q6H PRN PRN Pain 1-10 Or Fever #0 tabs 12/08/21 [Rx Last Taken Unknown] acyclovir 400 mg tablet 400 mg PO TID #20 tabs 12/08/21 [Rx Last Taken Unknown] benzocaine 15 mg-menthol 3.6 mg lozenges (Cepacol Sore Throat (benzocaine- menthol)) 1 yang mucous membrane Q2H PRN PRN sore throat/cough #20 ea 12/08/21 [Rx Last Taken Unknown] doxycycline monohydrate 100 mg capsule 100 mg PO BID #10 caps 12/08/21 [Rx Last Taken Unknown] insulin glargine 100 unit/mL (3 mL) subcutaneous pen (Basaglar KwikPen U-100 Insulin) 20 unit subcut insulin 12/08/21 [History Last Taken Unknown] lidocaine HCl 2 % mucosal solution (Lidocaine Viscous) 5 ml PO Q3H PRN SORE THROAT #100 mL 12/08/21 [Rx Last Taken Unknown] nystatin 100,000 unit/mL oral suspension 500,000 unit (5 mL) PO 4X/DAY #300 mL 12/08/21 [Rx Last Taken Unknown] hydrocodone-acetaminophen 5-325mg 5mg-325mg 1 tab PO Q4H PRN PRN Pain 12/31/22 [History Last Taken Unknown] hydroxyzine HCl 100 mg tablet 100 mg PO TID PRN PRN Anxiety 12/31/22 [History Last Taken Unknown] insulin aspart U-100 100 unit/mL (3 mL) subcutaneous pen (Novolog FlexPen U-100 Insulin aspart) 10 unit subcut TIDCM 12/31/22 [History Last Taken Unknown] Allergy/AdvReac Type Severity Reaction Status Date / Time lisinopril AdvReac Other Verified 12/31/22 22:17 morphine AdvReac Vomiting Verified 12/31/22 22:17 Penicillins [PCN] AdvReac Other Verified 12/31/22 22:17 Family History Other Multiple sclerosis Surgical History History of carpal tunnel surgery Hx of hand surgery Social History Smoking Status: Never smoker substance use type: does not use ROS ROS ED Eyes Eyes: Denies blurry vision, change in vision or diplopia Cardiovascular Cardiovascular: Denies chest pain or palpitations Respiratory/Chest Respiratory/Chest: Denies cough or dyspnea Musculoskeletal Musculoskeletal: Reports other Details: Left shoulder and elbow pain ; Denies back pain, myalgias or neck pain Integumentary Denies rash Neurologic Neurologic: Denies paresthesias or weakness Psychiatric Psychiatric: Reports anxiety Hematologic/Lymphatic Hematologic/Lymphatic: Denies easy bleeding or easy bruising EXAM Physical Exam Const Vital Signs: 12/31/22 22:15 Temperature 97.6 F L Temperature Source Temporal Pulse Rate 91 Respiratory Rate 16 Blood Pressure 123/64 H Blood Pressure Mean 83 Pulse Ox 99 Oxygen Delivery Method Room Air Positive well nourished, well developed and obese Constitutional Narrative: Patient is in obvious discomfort. She has limited range of motion. General Appearance ED: well developed; Negative for cyanotic, diaphoretic or NAD Nutritional Appearance: obese HEENT Reports moist mucous membranes normocephalic and atraumatic Eyes PERRL and EOMs intact bilaterally Neck full ROM and supple Cardio regular rate and regular rhythm Back/Spine no CVA tenderness Cervical Spine: Negative for cervical spine tenderness Thoracic Spine / Upper Back: Negative for thoracic spinal tenderness Extremity Extremity Narrative: There is edema of the left hand and fingers. There is discoloration of the left hand. There is no pain ovation over the clavicle or AC joint. There is pain the patient with a proximal humerus. She has normal sensation over the left and right deltoid. Median, radial and ulnar function intact. Capillary refill is normal. General Extremety ED: Yes edema General Extremity: edema Neuro oriented x3, CN's II-XII intact bilaterally, moves all extremities, no focal motor deficits and no sensory deficits noted Sensorium / Orientation: alert Psych Mood & Affect: anxious Skin Skin Narrative: Bruising is noted. General Skin Exam: Negative for petechiae Lesions: no lesions Rashes: no rashes MDM MDM MDM Narrative Medical decision making narrative: X-ray interpreted by radiologist at outside facility was obtained and reveals comminuted nondisplaced proximal humeral fracture at the surgical neck and a comminuted intra-articular left olecranon process. Based on description patient was told she will require operative intervention for the elbow fracture. She states she was told that by Dr. Buchanan. Because patient is on oxycodone with no improvement fentanyl patch was ordered. Patient was instructed to apply ice every hour. She was told that the ice would penetrate through the splint. She also was instructed to elevate her left upper extremity. Discharge Plan Triage Chief Complaint: Upper Extremity Injury ED Provider: Zeb Quintero Dx/Rx/DC Orders Clinical Impression: Fracture of proximal end of left humerus with routine healing, Type 1 diabetes, Closed intra-articular fracture of olecranon process of left ulna, Edema of left upper extremity Instructions: ED Elbow Fracture, ED Lymphedema, ED Fracture, Shoulder Prescriptions: No Action ondansetron 4 MG tablet 4 mg PO Q8H PRN PRN (Reason: Nausea) Qty: 10 0RF cyclobenzaprine 10 mg tablet 10 mg PO BID PRN (Reason: muscle spasm) Qty: 10 0RF nystatin 100,000 unit/mL Suspension 500,000 unit PO 4X/DAY Qty: 300 0RF acetaminophen [Tylenol] 325 mg Tablet 650 mg PO Q6H PRN PRN (Reason: Pain 1-10 Or Fever) Qty: 0 0RF doxycycline monohydrate 100 mg Capsule 100 mg PO BID Qty: 10 0RF lidocaine HCl [Lidocaine Viscous] 2 % Solution 5 ml PO Q3H PRN (Reason: SORE THROAT) Qty: 100 0RF Cepacol Sore Throat (david-men) 15-3.6 mg Lozenge 1 yang mucous membrane Q2H PRN PRN (Reason: sore throat/cough) Qty: 20 0RF acyclovir 400 mg tablet 400 mg PO TID Qty: 20 0RF insulin glargine [Basaglar KwikPen U-100 Insulin] 100 unit/mL (3 mL) insulin pen 20 unit SUBCUT hydrocodone-acetaminophen 5-325 mg tablet 1 tab PO Q4H PRN PRN (Reason: Pain) hydroxyzine HCl 100 mg Tablet 100 mg PO TID PRN PRN (Reason: Anxiety) insulin aspart U-100 [Novolog FlexPen U-100 Insulin] 100 unit/mL (3 mL) Insulin Pen 10 unit SUBCUT TIDCM Primary Care Provider: Thomas Rhoades Referrals: Steven Buchanan DO [Med Staff - Active Staff] - Keep Elizabeth appointment Thomas Rhoades DO [Primary Care Provider] - Activity Restrictions/Additional Instructions: 1. It is important to elevate your left upper extremity as much as possible. Elevation means hand above your nose. 2. Apply ice to your left elbow and left shoulder every hour for 20 minutes while awake. Disposition Disposition: Home, Self Care
[2022-12-31] MEDS: fentaNYL 25 MCG Patch TD (23:25)
[2022-12-31 23:30] VITALS: BP 114/69; PULSE 87; RESP 16; O2SAT 93
== END 2022-12-31 23:40 | disposition home or self-care (01) ==
PROVIDERS: Emergency Provider Emergency Medicine; PCP Family Medicine; Visit Provider Emergency Medicine
DX: S42.215D Unspecified nondisplaced fracture of surgical neck of left humerus, subsequent encounter for fracture with routine healing (principal); S52.032D Displaced fracture of olecranon process with intraarticular extension of left ulna, subsequent encounter for closed fracture with routine healing; W18.30XD Fall on same level, unspecified, subsequent encounter; R60.0 Localized edema; E10.9 Type 1 diabetes mellitus without complications; I10 Essential (primary) hypertension; Z79.4 Long term (current) use of insulin; Z79.899 Other long term (current) drug therapy
CPT/HCPCS: 99283

== ENCOUNTER 2023-01-05 07:18 | Day surgery (SDC) | payer OTHER, SELFPAY ==
--- NOTE | 2023-01-03 10:23 | EKG12_ITS ---
Test Reason : PRE-OP Blood Pressure : / mmHG Vent. Rate : 093 BPM Atrial Rate : 093 BPM P-R Int : 154 ms QRS Dur : 078 ms QT Int : 364 ms P-R-T Axes : 041 005 024 degrees QTc Int : 452 ms Normal sinus rhythm Low voltage QRS Nonspecific T wave abnormality Abnormal ECG Confirmed by EDEN SAWANT, LAITH ([id number]), videotape editor BERNIE RIVERA ([id number]) on 01/04/2023 9:27:52 AM Referred By: Steven Buchanan Confirmed By:LAITH HARMON MD
--- NOTE | 2023-01-03 10:30 | RAD_ITS ---
STUDY: X-RAY CHEST REASON FOR EXAM: Female, 52 years old. PRE-OP TECHNIQUE: PA and lateral COMPARISON: None. FINDINGS: Minimal discoid atelectasis at left base.. There is no demonstrated pleural abnormality. Normal size heart. Normal mediastinum and alexandra. Normal visualized pulmonary arteries. Normal visualized aortic arch and descending thoracic aorta. Normal visualized thoracic spine. Normal visualized ribs, clavicles, and right shoulder There is an acute mildly impacted left humeral neck and head with mild overlapping of fracture fragments. There is mild inferior subluxation of the humeral head with respect to the glenohumeral joint There is no demonstrated abnormality of the visualized soft tissue structures of the upper abdomen. RAD/Chest PA and Lateral IMPRESSION: No acute cardiopulmonary pathology Acute fracture or subluxation of the left shoulder. Electronically Signed: King Carrion MD at 20:21 EST ,
[2023-01-03 11:24] LABS: Absolute Lymphocyte Count 1.86 X10^3/uL (0.83-4.51); Absolute Neutrophil Count 4.2 X10^3/uL (2.0-7.7); Basophil# 0.02 X10^3/uL; Basophil% 0.3 % (0-1); Eosinophil# 0.15 X10^3/uL; Eosinophils% 2.2 % (0-5); Hematocrit 36.3 % (37-47); Hemoglobin 11.6 g/dL (12.0-15.0); Lymphocyte # 1.86 X10^3/ul (0.83-4.51); Mean Corpuscular Hgb 27.7 pg (27.0-32.0); Mean Corpuscular Volume 86.6 fL (81-99); Mean Platelet Vol. 9.3 fl (6.2-12.0); Monocyte# 0.66 X10^3/uL; Monocyte% 9.6 % (0-10); NRBC Flagged by Analyzer 0 % (0-5); Neutrophil # 4.19 X10^3/uL (2.7-7.7); Neutrophil % 60.6 % (47-70); Platelet Count 402 K/mm3 (150-450); RBC Distribution Width CV 13.8 % (11.6-14.6); RBC Distribution Width SD 42.5 fl (35.1-43.9); Red Blood Count 4.19 M/mm3 (4.2-5.4); White Blood Count 6.9 K/mm3 (4.4-11.0)
[2023-01-03 12:35] LABS: Anion Gap 5 (5-15); BUN 20 mg/dL (7-18); BUN/Creat Ratio 22.7 RATIO (10-20); Calcium,Total 9.4 mg/dL (8.5-10.1); Chloride 106 mmol/L (98-107); Creatinine, Serum 0.88 mg/dL (0.55-1.02); EST Glomerular Filtration Rate 71 mL/min (>60); Est Glom Filt Rate - Afr Amer 86 mL/min (>60); Glucose 79 mg/dL (74-106); Potassium 4.5 mmol/L (3.5-5.1); Sodium Level 141 mmol/L (136-145)
[2023-01-03 14:11] LABS: Hemoglobin A1c 8.8 % (3.8-5.6)
[2023-01-05] VITALS (16 sets, daily range): BP systolic 118–148; BP diastolic 58–89; PULSE 75–99; RESP 15–22; TEMP 36.2–37.3; O2SAT 91–100; BMI 33.5
--- NOTE | 2023-01-05 08:00 | RAD_ITS ---
STUDY: X-RAY - LEFT ELBOW REASON FOR EXAM: Female, 52 years old. Intraoperative digital documentation views. TECHNIQUE: 2 intraoperative digital documentation view(s) of the elbow. COMPARISON: Forearm x-rays dated October 15, 2021. FINDINGS: Malleable plate and screw fixation of the olecranon extending to the shaft of the ulna. Anatomic alignment without complications. Normal visualized soft tissues. RAD/Elbow 2 Views IMPRESSION: ORIF of olecranon and proximal ulna without complications. Electronically Signed: Jose Wu, at 13:33 EST ,
[2023-01-05] MEDS: Lactated Ringers 1,000 ML 15 ML IV (08:17)
[2023-01-05 08:45] LABS: Bedside Glucose 212 mg/dL (74-106)
[2023-01-05] MEDS: LORazepam 1 MG Tablet 2 MG PO (09:08)
--- NOTE | 2023-01-05 10:00 | RAD_ITS ---
STUDY: X-RAY - LEFT SHOULDER REASON FOR EXAM: Female, 52 years old. Left shoulder. Recheck fracture. TECHNIQUE: 2 digital view(s) of the shoulder. COMPARISON: None. FINDINGS: 2 digital views of the shoulder show an impacted left humeral neck fracture . RAD/Shoulder min 2 Views IMPRESSION: Impacted left humeral neck fracture. Electronically Signed: Jose Wu, at 13:34 EST ,
[2023-01-05] MEDS: Cefazolin 2 GM in 0.9% Normal Saline 100 ML IV (10:03)
[2023-01-05] MEDS: Lidocaine 2% /Epi 1:100 (20ml) 20 ML VIAL (10:24)
--- NOTE | 2023-01-05 11:40 | DCINST_ITS ---
Discharge Instructions Follow Up Care Test Results: Test results from this visit will be discussed in further detail at your follow- up appointment, if applicable. Discharge Plan Admission Primary Reason for Your Visit: Left elbow surgery Attending Provider: Steven Buchanan Primary Care Provider: Thomas Rhoades Instructions Additional Instructions / Restrictions: Follow preprinted instructions from your surgeons office. Discharge Orders/Prescriptions Prescriptions: No Action acetaminophen [Tylenol] 325 mg Tablet 650 mg PO Q6H PRN PRN (Reason: Pain 1-10 Or Fever) Qty: 0 0RF insulin glargine [Basaglar KwikPen U-100 Insulin] 100 unit/mL (3 mL) insulin pen 20 unit SUBCUT QHS oxycodone 5 mg Tablet 5 mg PO Q6H PRN (Reason: Pain) albuterol sulfate 90 mcg/actuation HFA aerosol inhaler 2 puff INHALATION Q4H PRN PRN (Reason: ASTHMA) Label Comments: INHALE 2 PUFFS BY MOUTH EVERY 4 TO 6 HOURS hydroxyzine HCl 100 mg Tablet 10 mg PO TID PRN PRN (Reason: Anxiety) insulin aspart U-100 [Novolog FlexPen U-100 Insulin] 100 unit/mL (3 mL) Insulin Pen 10 unit SUBCUT TIDCM Referrals / Follow Up: Steven Buchanan DO [Med Staff - Active Staff] - Thomas Rhoades DO [Primary Care Provider] - Disposition Disposition (needs filled in before D/C Order can be placed): Home, Self Care
--- NOTE | 2023-01-05 11:41 | PCM.OPRPT ---
Report of Operation Date of Procedure: 01/05/23 Description of Surgical Findings:: Preoperative diagnosis: Left displaced intra-articular olecranon fracture Postoperative diagnosis: Left displaced intra-articular olecranon fracture Procedure: Left olecranon open reduction internal fixation Surgeon: Steven Buchanan DO Director Counseling Bureau: FISH Houser Anesthesia: General endotracheal with supraclavicular block Food Photographer: Jakob Velazquez CRNA Complications: None apparent Drains: None Estimated blood loss: 50 cc Urinary output: None IV fluids: 1500 cc crystalloid Specimens: None Surgical implants: Brittney 3.5 mm 6-hole proximal ulna/olecranon plate with combination of cortical and locking screws Surgical indications: This is a 52-year-old female seen in the outpatient setting after a fall onto her left upper extremity. She sustained a displaced left olecranon fracture and a nondisplaced proximal humerus fracture. She was referred to myself for possible surgical intervention. I recommend surgical invention of the left olecranon due to its displacement. The left proximal humerus appears amenable to nonoperative management but serial x-rays will be needed postoperatively to ensure acceptable reduction. She was understanding and wished to proceed with surgical intervention of the left upper extremity. She was neurovascular intact. The risk, benefits, alternatives to elbow surgery were reviewed with the patient. Risks include but were not limited to bleeding, infection, loss of life or limb, need for additional surgery, nonhealing bone or wounds, persistent pain, stiffness, symptomatic hardware, neurovascular injury, risk of anesthesia. Patient expressed understanding of these risks and wished to proceed with surgery. Description of procedure: Patient was seen in preoperative holding area. She was identified by name, medical record number, date of . The operative extremity was marked with a surgical marker. We confirmed informed consent with the patient and all questions were answered to her satisfaction. A supraclavicular block was administered in preoperative holding area by anesthesia staff prior to the procedure. Anesthesia consent was also obtained by the anesthesia team prior to procedure. At time of her procedure, patient was brought to the operative suite and positioned supine on a standard operating table. 2 g Ancef was administered room time. General anesthesia was induced and laryngeal mask airway placed. All bony prominences well-padded. Patient was positioned in lateral decubitus position with the left side up. An axillary roll was placed. Fibular head was free on the down leg. All bony prominences were well-padded in the lateral decubitus position. We positioned the patient in the lateral decubitus position utilizing a beanbag. The operative extremity was brought over a radiolucent post avoiding significant manipulation of the left shoulder. We then prepped and draped the left upper extremity in normal, sterile orthopedic fashion after spending the bed 90 degrees. We performed a timeout with all parties in attendance in agreement with the side, site, operation to be performed. No concerns were voiced elected proceed with surgery. I applied a sterile tourniquet which was well-padded to the left upper extremity. I explained to the left upper extremity with an Esmarch bandage. Tourniquet was inflated to 250 mmHg remained up for approximately 45 minutes minutes. I then planned a curvilinear incision over the olecranon curving slightly radial. I anesthetized the skin with 2% lidocaine with epinephrine 1: 100,000 utilizing approximately 20 cc. Skin and subcutaneous tissue was sharply dissected with a 10 blade scalpel. Muscular fascia was encountered and split in line with the incision. Olecranon fracture was easily identified as well as fracture hematoma. There was a fracture through the cartilage at the level of the fracture, otherwise it was pristine. Fracture hematoma was debrided and irrigated. I then achieved an anatomic reduction with a large Randolph clamp across the major fracture line which extended into the articular surface. There is a small butterfly fragment medially. I placed 3 K wires across the fracture site orthogonally to hold the [address] Clamp was removed. Anatomic reduction was confirmed on fluoroscopy. I then selected a 6-hole olecranon plate which was placed in anatomic position nail plate in place with a K wire. Alignment of the plate appeared adequate on fluoroscopy. I proceeded with compressing the plate to bone with cortical screws placed bicortically in the shaft and a unicortical screw in the proximal cluster of the plate. The proximal screw was then exchanged for a locking screw due to poor purchase following additional locking screw placement. The proximal cluster was filled with locking screws. I was able to place a homerun screw in line with the long axis of the ulnar shaft. I then placed 2 additional bicortical cortex screws in the shaft of the plate distally. The elbow was brought through range of motion demonstrated no significant impingement posteriorly and full range of motion. The medial butterfly fragment was not captured by the plate and given its small size, I elected to secure this to the plate with 2 [id number] #1 Vicryl sutures. Final fluoroscopic images were obtained. The wound was copiously irrigated with normal saline solution. Tourniquet deflated hemostasis achieved with unipolar cautery. Bursal layer was closed with a running, locking #1 Vicryl suture. Dermis was reapproximated buried 2-0 Vicryl suture. Skin was widely reapproximated with 2-0 nylon in horizontal mattress fashion. A bulky sterile compression dressing was applied. We then repositioned the patient in the supine position. I brought in the C arm to confirm no displacement of the proximal humerus. The fracture appeared nondisplaced on both an AP and scapular Y projection. Patient was then placed in a simple sling. She was safely extubated in the operative suite after anesthesia was reversed. She was transferred to her gurney and subsequently to PACU in stable condition. Post Operative Plan: Weightbearing: Nonweightbearing operative extremity Antibiotics: Ancef 2 g x 1 dose preoperatively DVT Prophylaxis: Early ambulation, aspirin 81 mg twice daily to start postoperative day #1 Antunez: None Dressing: Maintain sling except for hygiene. Gentle range of motion of the left elbow is okay. Encourage left hand wrist and finger range of motion. X-Rays: X-rays left elbow and left shoulder at first follow-up Pain Medication: Patient received oxycodone prescription preoperatively for postoperative analgesia. Meloxicam ordered and Tylenol advised. Follow-up: As scheduled in approximately 11 days.
[2023-01-05] MEDS: Ipratropium/Albuterol Sulfate 3 ML AMPUL.NEB INHALATION (14:11)
== END 2023-01-05 15:25 | disposition home or self-care (01) ==
LOC: SDC 07:19 → AC 07:19
PROVIDERS: Anesthesiology; PCP Family Medicine; Referring Provider Student in an Organized Health Care Education/Training Program; Visit Provider Student in an Organized Health Care Education/Training Program
PROC: (CPT 24685; principal; 2023-01-05 08:45)
DX: S52.032A Displaced fracture of olecranon process with intraarticular extension of left ulna, initial encounter for closed fracture (principal); E11.9 Type 2 diabetes mellitus without complications; Z79.4 Long term (current) use of insulin; S42.222A 2-part displaced fracture of surgical neck of left humerus, initial encounter for closed fracture; W00.0XXA Fall on same level due to ice and snow, initial encounter; Y92.481 Parking lot as the place of occurrence of the external cause; G47.30 Sleep apnea, unspecified; M19.90 Unspecified osteoarthritis, unspecified site; J45.909 Unspecified asthma, uncomplicated; R03.0 Elevated blood-pressure reading, without diagnosis of hypertension; Z79.899 Other long term (current) drug therapy
CPT/HCPCS: 24685; 64415; 36415; 71046; 73030; 73070; 76000; 80048; 82962; 83036; 85025; 93005; 94640; C1713; J7120; J2405

== ENCOUNTER → 2023-01-16 | Outpatient (CLI) | payer OTHER, MEDICAID, SELFPAY ==
--- NOTE | 2023-01-16 12:56 | VDLE_ITS ---
Reason For Study: swelling RIGHT LEFT GSV is normal. GSV is normal. CFV is compressible, spontaneous, phasic, CFV is compressible, spontaneous, phasic, competent and demonstrates normal competent, and demonstrates normal augmentation. augmentation. FV is compressible, spontaneous, phasic, FV is compressible, spontaneous, phasic, competent and demonstrates normal competent and demonstrates normal augmentation. augmentation. POP V is compressible, spontaneous, phasic, POP V is compressible, spontaneous, phasic, competent and demonstrates normal competent and demonstrates normal augmentation. augmentation. T/P Trunk is compressible. T/P Trunk is compressible. PTV is compressible. PTV is compressible. RT PerV is compressible. LT PerV is compressible. Procedure This is a venous duplex using B-mode, color flow and spectral Doppler. Exam performed in department. The exam was diagnostic. A preliminary report was called and/or faxed to [facility] clinical desk. VL/Venous Duplex US - Rcihy Extrem Interpretation Summary Deep veins of the lower extremities are bilaterally patent and compressible seg mentally. There is no evidence of deep vein thrombosis on either side. Valvular competence appears in tact within the proximal deep venous systems bilaterally. The great saphenous veins appear bila terally patent and compressible segmentally. Ordering Physician: Steven Buchanan Performed By: Kahlil Hester RVT
== END | disposition home or self-care (01) ==
PROVIDERS: PCP Family Medicine; Referring Provider Student in an Organized Health Care Education/Training Program; Visit Provider Student in an Organized Health Care Education/Training Program
DX: R22.42 Localized swelling, mass and lump, left lower limb (principal); R22.41 Localized swelling, mass and lump, right lower limb
CPT/HCPCS: 93970

== ENCOUNTER → 2023-09-06 | Outpatient (CLI) | payer OTHER, SELFPAY ==
[2023-09-06 12:24] LABS: Absolute Lymphocyte Count 1.33 X10^3/uL (0.83-4.51); Absolute Neutrophil Count 4.8 X10^3/uL (2.0-7.7); Basophil# 0.02 X10^3/uL; Basophil% 0.3 % (0-1); Eosinophil# 0.06 X10^3/uL; Eosinophils% 0.9 % (0-5); Hematocrit 43.2 % (37-47); Hemoglobin 13.6 g/dL (12.0-15.0); Lymphocyte # 1.33 X10^3/ul (0.83-4.51); Lymphocyte % 19.8 % (19-41); Mean Corp Hgb Conc 31.5 g/dL (32-36); Mean Corpuscular Hgb 27.5 pg (27.0-32.0); Mean Corpuscular Volume 87.4 fL (81-99); Mean Platelet Vol. 10.6 fl (6.2-12.0); Monocyte# 0.47 X10^3/uL; NRBC Flagged by Analyzer 0 % (0-5); Neutrophil # 4.83 X10^3/uL (2.7-7.7); Neutrophil % 71.7 % (47-70); Platelet Count 325 K/mm3 (150-450); RBC Distribution Width SD 44.1 fl (35.1-43.9); Red Blood Count 4.94 M/mm3 (4.2-5.4); White Blood Count 6.7 K/mm3 (4.4-11.0)
[2023-09-06 13:29] LABS: Hepatitis B Surface Antibody Non-Reactive; Hepatitis B Surface Antigen Non-Reactive (Nonreactive); Hepatitis C Antibody Non-Reactive (Nonreactive)
[2023-09-06 15:57] LABS: ALB/GLOB Ratio 0.9 RATIO (0.9-2.4); AST(SGOT) 12 U/L (15-37); Alanine Aminotransfer ALT/SGPT 28 U/L (13-56); Albumin, Serum 3.4 g/dL (3.2-5.0); Alkaline Phosphatase 195 U/L (45-117); Anion Gap 6 (5-15); BUN 11 mg/dL (7-18); BUN/Creat Ratio 15.3 RATIO (10-20); Calcium,Total 9.1 mg/dL (8.5-10.1); Chloride 104 mmol/L (98-107); Creatinine, Serum 0.72 mg/dL (0.55-1.02); EST Glomerular Filtration Rate 90 mL/min (>60); Est Glom Filt Rate - Afr Amer 109 mL/min (>60); Globulin 3.6 g/dL (2.2-4.2); Glucose 98 mg/dL (74-106); Potassium 3.9 mmol/L (3.5-5.1); Rheumatoid Factor < 10.0 IU/mL (<15); Sodium Level 138 mmol/L (136-145)
[2023-09-08 17:07] LABS: CCP IgG Antibodies 4 units (0-19); G6PD Quant Test 246 (127-427); Red Blood Cell Count Test/G6PD 4.91 x10E6/uL (3.77-5.28)
== END | disposition home or self-care (01) ==
PROVIDERS: PCP Family Medicine; Referring Provider Internal Medicine Rheumatology; Visit Provider Internal Medicine Rheumatology
DX: M06.4 Inflammatory polyarthropathy (principal); E10.9 Type 1 diabetes mellitus without complications; M79.7 Fibromyalgia; J45.909 Unspecified asthma, uncomplicated
CPT/HCPCS: 36415; 80053; 82955; 85025; 86200; 86431; 86706; 86803; 87340

== ENCOUNTER 2024-02-22 05:53 | Day surgery (SDC) | payer OTHER, SELFPAY ==
[2024-02-09 09:50] LABS: Absolute Lymphocyte Count 1.45 X10^3/uL (0.83-4.51); Absolute Neutrophil Count 3.2 X10^3/uL (2.0-7.7); Basophil# 0.03 X10^3/uL; Basophil% 0.6 % (0-1); Eosinophil# 0.06 X10^3/uL; Eosinophils% 1.2 % (0-5); Hematocrit 42.4 % (37-47); Hemoglobin 13.7 g/dL (12.0-15.0); Lymphocyte # 1.45 X10^3/ul (0.83-4.51); Lymphocyte % 28.6 % (19-41); Mean Corp Hgb Conc 32.3 g/dL (32-36); Mean Corpuscular Hgb 27.7 pg (27.0-32.0); Mean Corpuscular Volume 85.7 fL (81-99); Mean Platelet Vol. 9.6 fl (6.2-12.0); Monocyte# 0.35 X10^3/uL; Monocyte% 6.9 % (0-10); NRBC Flagged by Analyzer 0 % (0-5); Neutrophil # 3.15 X10^3/uL (2.7-7.7); Neutrophil % 62.1 % (47-70); Platelet Count 322 K/mm3 (150-450); RBC Distribution Width CV 12.8 % (11.6-14.6); RBC Distribution Width SD 39.6 fl (35.1-43.9); Red Blood Count 4.95 M/mm3 (4.2-5.4); White Blood Count 5.1 K/mm3 (4.4-11.0)
[2024-02-09 10:21] LABS: Hemoglobin A1c 9.4 % (3.8-5.6)
[2024-02-09 10:28] LABS: Anion Gap 4 (5-15); BUN 26 mg/dL (7-18); BUN/Creat Ratio 30.1 RATIO (10-20); Calcium,Total 9.1 mg/dL (8.5-10.1); Chloride 108 mmol/L (98-107); Creatinine, Serum 0.86 mg/dL (0.55-1.02); EST Glomerular Filtration Rate 73 mL/min (>60); Est Glom Filt Rate - Afr Amer 88 mL/min (>60); Glucose 187 mg/dL (74-106); Potassium 4.3 mmol/L (3.5-5.1); Sodium Level 140 mmol/L (136-145)
[2024-02-22] VITALS (35 sets, daily range): BP systolic 94–194; BP diastolic 65–99; PULSE 67–88; RESP 10–18; TEMP 36.3–36.9; O2SAT 10–100; BMI 34.2
[2024-02-22] MEDS: Lactated Ringers 1,000 ML 15 ML IV ×2 (06:40→10:51)
[2024-02-22 06:43] LABS: Bedside Glucose 209 mg/dL (74-106)
[2024-02-22] MEDS: Bupiv/Epi 0.25% 30 ML Vial (07:41)
[2024-02-22] MEDS: Triamcinolone Acetonide 40 MG/ML Vial (07:41)
--- NOTE | 2024-02-22 07:51 | OP.PCM_ITS ---
Report of Operation Date of Procedure: 02/22/24 Description of Surgical Findings:: Preoperative diagnosis: Left shoulder adhesive capsulitis Postoperative diagnosis: Left shoulder adhesive capsulitis Procedure: Left shoulder manipulation under anesthesia with intra-articular corticosteroid injection Surgeon: Steven Buchanan DO Anesthesia: General Optical Instrument Assembly Supervisor: Jakob Velazquez CRNA Estimated blood loss: None IV fluids: Per anesthesia record Urine output: None recorded Specimen: None Packing/drains: None Implants: None Complications: None apparent Intraoperative findings: Premanipulation range of motion following anesthesia administration: Forward flexion 130 degrees, external rotation 10 degrees. Postmanipulation range of motion forward flexion to 160 degrees, external rotation 30 degrees. Palpable and auditory release of adhesions appreciated during manipulation. Indications: This is a 53-year-old female seen last year for a fall onto her left upper extremity. She sustained a displaced olecranon fracture and proximal humerus fracture on the left side. The left shoulder was minimally displaced and was treated nonoperatively. The olecranon did require ORIF. She recovered reasonably well with return of function to her left arm however has plateaued severely with her range of motion of her left shoulder. Healing has been noted on x-ray. MRI demonstrated no evidence of rotator cuff pathology or acute injury. Given her failure of the extensive physical therapy, I recommended a manipulation under anesthesia of the left shoulder. The risks, benefits, alternatives to procedure were reviewed with the patient at length and she agreed to proceed. Risks included but were not limited to bleeding, infection, loss of life or limb, need for additional surgery, fracture, damage to rotator cuff or labrum, persistent pain, stiffness, need for extensive therapy, neurovascular injury, DVT or PE. We previously discussed a arthroscopic lysis of adhesions however the patient recently had a A1c over 9 and I felt that the risk of surgery was too great and elected to perform a simple closed manipulation under anesthesia. She did state her sugars have been better controlled recently and I felt it appropriate to proceed with a corticosteroid injection today after manipulation. Description of procedure: Patient was identified in the preoperative holding area by name, medical record number, and date of . The operative extremities marked. All questions were answered to the patient's satisfaction. At time of her procedure, patient was brought to the operative suite and positioned supine on her gurney. General anesthesia was induced. After adequate anesthesia, we called a timeout. All parties in attendance were in agreement with the side, site, and operation be performed. No concerns were voiced and was to proceed with the procedure. I first assessed the preoperative range of motion. Range of motion parameters described above. I then stabilized the scapula and forward flex the shoulder in the scapular plane. Palpable and audible release of adhesions was noted at approximately 130-140 degrees of forward flexion. I was able to fully forward flex the shoulder to 160 degrees. I then brought the shoulder back down to her side and externally rotated. Release of adhesions was noted at approximately 10-15 degrees and I was able to fully externally rotate the shoulder to approximately 30-40 degrees. The shoulder was then brought through an arc of mo tion, felt stable and no severe blocks to motion were appreciated. I then prepped the anterior shoulder overlying the coracoid process with rubbing alcohol. I previously drawn up solution was injected into the glenohumeral joint consisting of 4 cc 0.25% bupivacaine with epinephrine and 1 cc 40 mg Kenalog. This was injected with a 22-gauge needle. Band-Aid was applied after the needle was withdrawn. I then positioned the arm overhead and held this in place with a beanbag over the distal humerus until the patient reached PACU at which time it was removed. Patient tolerated the procedure well without complication. She was safely awoken the operative suite and transferred to PACU in stable condition. Postoperative plan: Patient be weightbearing and range of motion as tolerated to left upper extremity. Physical therapy to start tomorrow. She was placed in a simple sling however I urged her to use this sparingly. She was advised to start home exercise today. Prescription for hydrocodone provided. Multimodal pain management with Tylenol and ibuprofen encouraged. Follow-up in 2 weeks for range of motion assessment.
[2024-02-22] MEDS: Ketorolac 15 MG/ML Vial IV (07:58)
[2024-02-22 08:51] LABS: Bedside Glucose 270 mg/dL (74-106)
[2024-02-22 09:45] LABS: Bedside Glucose 280 mg/dL (74-106)
--- NOTE | 2024-02-22 11:23 | SUR.PHASEI ---
Blood sugar 263
--- NOTE | 2024-02-22 11:27 | SUR.PHASEI ---
[employer] [employer]. PATIENT AROUSES TO PUT IN
[2024-02-22 11:40] LABS: Bedside Glucose 263 mg/dL (74-106)
--- NOTE | 2024-02-22 14:07 | SUR.PHASEI ---
1357 Dr Lai at bedside. Decision made to give Narcan 0.2mg. Patient has been unable to stay off of supplemental oxygen. Narcan 0.2mg administered IV by Dr. Lai.
[2024-02-22] MEDS: Acetaminophen 500 MG Tablet 1000 MG PO (14:33)
== END 2024-02-22 16:06 | disposition home or self-care (01) ==
LOC: SDC 05:56 → AC 05:57
PROVIDERS: PCP Family Medicine; Referring Provider Student in an Organized Health Care Education/Training Program; Visit Provider Student in an Organized Health Care Education/Training Program
PROC: (CPT 23700; principal; 2024-02-22 07:25)
DX: M75.02 Adhesive capsulitis of left shoulder (principal); M06.9 Rheumatoid arthritis, unspecified; E10.9 Type 1 diabetes mellitus without complications; Z79.4 Long term (current) use of insulin; I10 Essential (primary) hypertension; M79.7 Fibromyalgia; Z79.899 Other long term (current) drug therapy
CPT/HCPCS: 23700; 20610; 01620; 36415; 80048; 82962; 83036; 85025; 93005; J7120; J2310; J2405

== ENCOUNTER → 2024-03-08 | Outpatient (CLI) | payer OTHER, SELFPAY ==
[2024-03-08 12:25] LABS: Absolute Lymphocyte Count 1.55 X10^3/uL (0.83-4.51); Absolute Neutrophil Count 4.2 X10^3/uL (2.0-7.7); Basophil# 0.03 X10^3/uL; Basophil% 0.5 % (0-1); Eosinophils% 1.6 % (0-5); Hematocrit 40.6 % (37-47); Hemoglobin 12.9 g/dL (12.0-15.0); Lymphocyte # 1.55 X10^3/ul (0.83-4.51); Lymphocyte % 24.7 % (19-41); Mean Corp Hgb Conc 31.8 g/dL (32-36); Mean Corpuscular Hgb 27.6 pg (27.0-32.0); Mean Corpuscular Volume 86.9 fL (81-99); Mean Platelet Vol. 10.5 fl (6.2-12.0); Monocyte# 0.39 X10^3/uL; Monocyte% 6.2 % (0-10); NRBC Flagged by Analyzer 0 % (0-5); Neutrophil # 4.17 X10^3/uL (2.7-7.7); Neutrophil % 66.5 % (47-70); Platelet Count 377 K/mm3 (150-450); RBC Distribution Width CV 12.9 % (11.6-14.6); RBC Distribution Width SD 40.3 fl (35.1-43.9); Red Blood Count 4.67 M/mm3 (4.2-5.4); White Blood Count 6.3 K/mm3 (4.4-11.0)
[2024-03-08 13:20] LABS: ALB/GLOB Ratio 0.8 RATIO (0.9-2.4); AST(SGOT) 18 U/L (15-37); Alanine Aminotransfer ALT/SGPT 25 U/L (13-56); Albumin, Serum 3.2 g/dL (3.2-5.0); Alkaline Phosphatase 151 U/L (45-117); Anion Gap 4 (5-15); BUN 15 mg/dL (7-18); Calcium,Total 9.1 mg/dL (8.5-10.1); Chloride 101 mmol/L (98-107); EST Glomerular Filtration Rate 62 mL/min (>60); Est Glom Filt Rate - Afr Amer 74 mL/min (>60); Globulin 4.2 g/dL (2.2-4.2); Glucose 372 mg/dL (74-106); Potassium 4.6 mmol/L (3.5-5.1); Protein, Total 7.4 g/dL (6.4-8.2); Sodium Level 135 mmol/L (136-145)
== END | disposition home or self-care (01) ==
LOC: MTLAB 10:17
PROVIDERS: PCP Family Medicine; Referring Provider Internal Medicine Rheumatology; Visit Provider Internal Medicine Rheumatology
DX: M06.4 Inflammatory polyarthropathy (principal); M79.7 Fibromyalgia; Z79.899 Other long term (current) drug therapy
CPT/HCPCS: 36415; 80053; 85025

== ENCOUNTER → 2024-05-10 | Outpatient (CLI) | payer OTHER, SELFPAY ==
[2024-05-10 15:46] LABS: Absolute Lymphocyte Count 1.46 X10^3/uL (0.83-4.51); Absolute Neutrophil Count 2.5 X10^3/uL (2.0-7.7); Basophil# 0.03 X10^3/uL; Basophil% 0.7 % (0-1); Eosinophil# 0.05 X10^3/uL; Eosinophils% 1.1 % (0-5); Hematocrit 42.5 % (37-47); Hemoglobin 13.4 g/dL (12.0-15.0); Lymphocyte # 1.46 X10^3/ul (0.83-4.51); Lymphocyte % 32.8 % (19-41); Mean Corp Hgb Conc 31.5 g/dL (32-36); Mean Corpuscular Hgb 27.9 pg (27.0-32.0); Mean Corpuscular Volume 88.4 fL (81-99); Mean Platelet Vol. 10.3 fl (6.2-12.0); Monocyte# 0.41 X10^3/uL; Monocyte% 9.2 % (0-10); NRBC Flagged by Analyzer 0 % (0-5); Neutrophil # 2.48 X10^3/uL (2.7-7.7); Neutrophil % 55.8 % (47-70); Platelet Count 310 K/mm3 (150-450); RBC Distribution Width CV 13.5 % (11.6-14.6); RBC Distribution Width SD 43.9 fl (35.1-43.9); Red Blood Count 4.81 M/mm3 (4.2-5.4); White Blood Count 4.5 K/mm3 (4.4-11.0)
[2024-05-10 16:10] LABS: ALB/GLOB Ratio 0.9 RATIO (0.9-2.4); AST(SGOT) 20 U/L (15-37); Alanine Aminotransfer ALT/SGPT 29 U/L (13-56); Albumin, Serum 3.3 g/dL (3.2-5.0); Alkaline Phosphatase 158 U/L (45-117); Anion Gap 6 (5-15); BUN 20 mg/dL (7-18); BUN/Creat Ratio 28.7 RATIO (10-20); Calcium,Total 9.1 mg/dL (8.5-10.1); Chloride 105 mmol/L (98-107); EST Glomerular Filtration Rate 93 mL/min (>60); Est Glom Filt Rate - Afr Amer 113 mL/min (>60); Globulin 3.8 g/dL (2.2-4.2); Glucose 88 mg/dL (74-106); Potassium 4.9 mmol/L (3.5-5.1); Protein, Total 7.1 g/dL (6.4-8.2); Sodium Level 139 mmol/L (136-145)
== END | disposition home or self-care (01) ==
LOC: MTLAB 11:35
PROVIDERS: PCP Family Medicine; Referring Provider Internal Medicine Rheumatology; Visit Provider Internal Medicine Rheumatology
DX: M06.4 Inflammatory polyarthropathy (principal); M79.7 Fibromyalgia; Z79.899 Other long term (current) drug therapy
CPT/HCPCS: 36415; 80053; 85025

== ENCOUNTER → 2024-07-05 | Outpatient (CLI) | payer OTHER, SELFPAY ==
[2024-07-05 17:24] LABS: Absolute Lymphocyte Count 1.57 X10^3/uL (0.83-4.51); Absolute Neutrophil Count 2.7 X10^3/uL (2.0-7.7); Basophil# 0.02 X10^3/uL; Basophil% 0.4 % (0-1); Eosinophil# 0.09 X10^3/uL; Eosinophils% 1.9 % (0-5); Lymphocyte # 1.57 X10^3/ul (0.83-4.51); Lymphocyte % 33.3 % (19-41); Mean Corp Hgb Conc 31.7 g/dL (32-36); Mean Corpuscular Hgb 27.2 pg (27.0-32.0); Mean Corpuscular Volume 85.8 fL (81-99); Mean Platelet Vol. 9.9 fl (6.2-12.0); Monocyte# 0.32 X10^3/uL; Monocyte% 6.8 % (0-10); NRBC Flagged by Analyzer 0 % (0-5); Neutrophil % 57.4 % (47-70); Platelet Count 288 K/mm3 (150-450); Red Blood Count 4.78 M/mm3 (4.2-5.4); White Blood Count 4.7 K/mm3 (4.4-11.0)
[2024-07-05 18:19] LABS: ALB/GLOB Ratio 0.9 RATIO (0.9-2.4); AST(SGOT) 18 U/L (15-37); Alanine Aminotransfer ALT/SGPT 24 U/L (13-56); Albumin, Serum 3.1 g/dL (3.2-5.0); Alkaline Phosphatase 144 U/L (45-117); Anion Gap 3 (5-15); BUN 11 mg/dL (7-18); BUN/Creat Ratio 11.5 RATIO (10-20); Calcium,Total 8.7 mg/dL (8.5-10.1); Chloride 106 mmol/L (98-107); Creatinine, Serum 0.95 mg/dL (0.55-1.02); EST Glomerular Filtration Rate 65 mL/min (>60); Est Glom Filt Rate - Afr Amer 78 mL/min (>60); Globulin 3.6 g/dL (2.2-4.2); Glucose 422 mg/dL (74-106); Protein, Total 6.7 g/dL (6.4-8.2); Sodium Level 139 mmol/L (136-145)
== END | disposition home or self-care (01) ==
LOC: MTLAB 14:45
PROVIDERS: PCP Family Medicine; Referring Provider Internal Medicine Rheumatology; Visit Provider Internal Medicine Rheumatology
DX: M06.4 Inflammatory polyarthropathy (principal); M79.7 Fibromyalgia; Z79.899 Other long term (current) drug therapy
CPT/HCPCS: 36415; 80053; 85025

== ENCOUNTER → 2025-04-22 | Outpatient (CLI) | payer OTHER, SELFPAY ==
--- NOTE | 2025-04-22 07:01 | EKG12_ITS ---
Test Reason : PREOP Blood Pressure : */* mmHG Vent. Rate : 80 BPM Atrial Rate : 80 BPM P-R Int : 164 ms QRS Dur : 82 ms QT Int : 368 ms P-R-T Axes : 26 9 11 degrees QTcB Int : 424 ms Normal sinus rhythm Low voltage QRS Nonspecific T wave abnormality Abnormal ECG Confirmed by Bernardo Solorio ([id number]), editor department OSIRIS VELEZ ([id number]) on 04/28/2025 12:53:17 PM Referred By: Steven Buchanan Confirmed By: Bernardo Solorio
== END | disposition home or self-care (01) ==
PROVIDERS: PCP Family Medicine; Referring Provider Student in an Organized Health Care Education/Training Program; Visit Provider Student in an Organized Health Care Education/Training Program
DX: Z01.810 Encounter for preprocedural cardiovascular examination (principal); M06.9 Rheumatoid arthritis, unspecified; E11.9 Type 2 diabetes mellitus without complications; M65.4 Radial styloid tenosynovitis [de Quervain]; G56.02 Carpal tunnel syndrome, left upper limb; S63.592D Other specified sprain of left wrist, subsequent encounter; I10 Essential (primary) hypertension; M79.7 Fibromyalgia
CPT/HCPCS: 93005